=== PATIENT | male | born 1955 | race American Indian/Alaskan Native ===

== ENCOUNTER → 2020-09-26 13:46 | Outpatient (BNVA) | payer MEDICAID, SELFPAY | PROVIDERS: PCP Student in an Organized Health Care Education/Training Program; Visit Provider Nurse Practitioner Family | DX: Z76.89 Persons encountering health services in other specified circumstances (principal) ==

== ENCOUNTER 2020-09-30 09:33 | Outpatient (REF) | payer MEDICAID, SELFPAY ==
[2020-09-30 10:33] LABS: Hematocrit 46.5 % (42-52); Hemoglobin 15.8 g/dl (14.0-18.0); Mean Corpuscular Hemoglobin 30.8 pg (27.0-33.0); Mean Corpuscular Volume 90.6 fL (80-98); Platelet Count 194 X10*3/uL (160-400); Red Blood Count 5.13 X10*6/uL (4.60-5.80); Red Cell Distribution Width 12.9 % (11.0-16.0); White Blood Count 8.1 X10*3/uL (4.8-10.8)
[2020-09-30 12:24] LABS: Alanine Aminotransferase 27 U/L (0-40); Albumin Level 4.8 g/dL (3.5-5.0); Alkaline Phosphatase 86 U/L (39-117); Anion Gap 11 (12-20); Aspartate Amino Transferase 23 U/L (5-37); Bilirubin Total 0.4 mg/dL (0.0-1.0); Blood Urea Nitrogen 18 mg/dL (9-16); Calcium 9.3 mg/dL (8.4-10.2); Carbon Dioxide 27 mmol/L (22-29); Chloride 103 mmol/L (96-108); Estimated Glomerular Filt Rate > 60; Glucose Random 103 mg/dL (60-115); Potassium 4.3 mmol/l (3.3-5.1); Sodium 137 mmol/L (135-145); Total Protein 7.4 g/dL (6.5-8.0)
== END 2020-09-30 09:34 | disposition home or self-care (01) ==
LOC: HO.LAB 09:33
PROVIDERS: PCP Student in an Organized Health Care Education/Training Program; Visit Provider Nurse Practitioner Family
DX: Z12.11 Encounter for screening for malignant neoplasm of colon (principal)
CPT/HCPCS: 36415; 80053; 85027

== ENCOUNTER 2020-11-29 09:34 | Emergency (ER) | payer MEDICAID, SELFPAY ==
--- NOTE | ~2020-11-29 | CT_ITS ---
EXAMINATION: CT HEAD AND CT BRAIN WITHOUT CONTRAST. CLINICAL INFORMATION: Neck pain, left arm numbness. COMPARISON: None TECHNIQUE: 5 mm thin axial and reformatted 2 mm thin sagittal and coronal images of brain were obtained. 3 mm thin axial and reformatted 2 mm thin sagittal and coronal images of cervical spine were obtained. DLP 1390. FINDINGS: BRAIN: There is no acute intra-axial, extra-axial bleed, masses or midline shift. There is no acute infarction in evolution. The lateral ventricles are symmetrical in size and configuration but mildly prominent. There is mild prominence of cortical sulci. There is diffuse periventricular hypodensity in both cerebral hemispheres suggestive of chronic microangiopathy. Bone windows reveal no calvarial abnormality. There is mucoperiosteal thickening left sinus. Small polyps or retention cysts seen in left maxillary sinus. CERVICAL SPINE: There is mild straightening of cervical lordosis. The vertebral heights and alignment is normal. There is loss of C3-C4, C4-C5, C5-C6 and C6-C7 disc heights with posterior and ventral spondylosis most prominent at the C5-C6 disc level. The craniovertebral junction and the C1-C2 alignment is normal. There is hypertrophic bony spurring at the C1-C2 alignment. Also visualized is mild left facet joint arthropathy and hypertrophy cyst C2-C3, right C3-C4, left C4-C5 and C5-C6 disc levels. There is mild to moderate bilateral narrowing of neural foramina at most of the disc levels slightly worse at the C4-C5 and C5-C6 disc level. No visible acute fracture, dislocation or subluxation seen. Visualized bilateral parotid, submandibular and thyroid glands are symmetrical and normal. The airway is widely patent. The lung apices are clear. Small shotty lymph nodes are seen throughout the neck. CT/CT cervical spine wo con IMPRESSION: No acute intracranial process seen. Age-related mild cerebral volume loss with chronic small vessel microangiopathy in both cerebral hemispheres. No visible acute fracture or dislocation cervical spine. There are degenerative disc changes and facet joint arthropathy as described above.
[2020-11-29 09:47] VITALS: BP 144/72; PULSE 88; RESP 18; TEMP 36.3; O2SAT 99; BMI 26.6
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
== END 2020-11-29 11:42 | disposition home or self-care (01) ==
PROVIDERS: Emergency Provider Emergency Medicine; PCP Student in an Organized Health Care Education/Training Program
DX: M54.12 Radiculopathy, cervical region (principal); R20.2 Paresthesia of skin; I10 Essential (primary) hypertension; F17.210 Nicotine dependence, cigarettes, uncomplicated; Z79.82 Long term (current) use of aspirin; Z79.899 Other long term (current) drug therapy
CPT/HCPCS: 70450; 72125; 99283; 99284

== ENCOUNTER 2020-12-19 12:30 | Day surgery (SDC) | payer MEDICAID, SELFPAY ==
[2020-12-11 20:14] VITALS: BMI 25.8
--- NOTE | 2020-12-18 09:55 | HO.ANESPROP2 ---
HPI - Anesthesia Eval Consult details Narrative: 65yo M for Colonoscopy [facility] Past Medical History Medical History Anxiety HTN (hypertension) Family History Family History (Updated 09/26/20 @ 13:50 by Nolvia Christian CMA) Father Hx of colon cancer, stage IV Hx of diabetes insipidus Mother Family history of high blood pressure Surgical History Surgical History No significant past surgical history Social History Social History (Updated 09/26/20 @ 13:50 by Nolvia Christian CMA) Alcohol intake: current Alcohol intake frequency: does not drink Smoking Status: Current every day smoker Tobacco Type: Cigarette Cigarettes Per Day: 10 Second Hand Smoke Exposure: No Meds Allergies Allergy/AdvReac Type Severity Reaction Status Date / Time No Known Allergies Allergy Verified 09/26/20 13:48 Home Medications Medication Instructions Recorded Confirmed Last Taken Type aspirin 81 mg tablet,delayed 81 mg PO DAILY 09/26/20 12/11/20 12/11/20 09:00 History release hydrochlorothiazide 25 mg tablet 25 mg PO DAILY 09/26/20 12/11/20 Unknown History ibuprofen 600 mg tablet 600 mg PO DAILY tab 09/26/20 12/11/20 12/11/20 09:00 History lisinopril 10 mg tablet 10 mg PO DAILY 09/26/20 12/11/20 Unknown History polyethylene glycol 3350 17 17 g PO DAILY 09/26/20 12/11/20 Unknown History gram/dose oral powder sertraline 25 mg tablet 25 mg PO DAILY 09/26/20 12/11/20 Unknown History Exam Exam Date and Time: December 18, 2020 0955 Height,Weight and Vital Signs: Height 5 ft 9 in Weight 79.379 kg Pertinent Lab Results Pertinent Lab Results: Laboratory Tests 09/30/20 09/30/20 11:30 Unknown WBC 8.1 Hgb 15.8 Hct 46.5 Plt Count 194 Sodium 137 Potassium 4.3 Chloride 103 Carbon Dioxide 27 BUN 18 H Creatinine 0.81 Assessment and Plan Assessment Anesthesia Assessment: Chart Reviewed
[2020-12-19 12:38] VITALS: BP 183/89; PULSE 99; RESP 20; TEMP 36.9; O2SAT 97
[2020-12-19] MEDS: Lactated Ringers 1,000 ML 100 ML IVCONT (13:06)
--- NOTE | 2020-12-19 14:45 | MHC.SHP ---
Pre-Procedural Eval Section B Chief Complaint: screening Details of Present Illness: dad had colon cancer Relevant Family History (Specify if Yes): Yes Relevant Social History: Tobacco Use Present Medications: see Short Stay Collaborative assessment Medical History: Significant History (Anxiety HTN (hypertension)) History of Previous Operations: No relevant previous surgery Allergies: Allergies Allergy/AdvReac Type Severity Reaction Status Date / Time No Known Allergies Allergy Verified 09/26/20 13:48 Review of Systems Sugical H&P ROS: Negative: Constitution, Cardiovascular, Respiratory, Neurological, Psychiatric, Hem-Onc, Allergic/Immunologic, Gastrointestinal, Genitourinary, Musculoskeletal, Integumentary, Endocrine and Eyes/Ears/Nose/Throat Exam Surgical H&P Exam: Normal: HEENT, Normal: Heart, Normal: Lungs, Normal: Extremities, Normal: Abdomen, Normal: Skin and Normal: Neurological Plan Diagnosis/Plan: Unchanged I have reviewed the history and physical and performed a pertinent physical examination on my patient. No changes have occurred unless specified.
--- NOTE | 2020-12-19 14:48 | PM.OP ---
Brief Operative Note Date of Service: 12/19/20 Pre-op diagnosis: fh of CRC, colon screening Post-op diagnosis: same Procedure: see op note Surgeon: Reza Stephenson MD Anesthesia: MAC Estimated blood loss (mL): 0 Condition: stable Disposition: PACU
--- NOTE | 2020-12-19 15:21 | P.OP_ITS ---
Operative Note Operative Note Date of Service: 12/19/20 Narrative: Operative Information Procedure Description: Colonoscopy COLONOSCOPY Instrument: Olympus variable stiffness pediatric scope 190L Colonoscopy Monitoring: Vital signs and clinical assessment, continuous EKG monitoring, Pulse oximetry, Carbon Dioxide monitoring and blood pressure monitoring were done throughout the procedure. Colon withdrawal time was 23 minutes. Procedure: The patient was placed in the left lateral decubitis position and pre-procedure medications were administered. After a digital rectal examination of the ano-rectum, the video colonoscope was inserted into the rectum and advanced through the colon to the cecum/TI. The colonoscope was slowly withdrawn in a retrograde panoramic fashion and the colon mucosa was carefully examined including a retroflexed view of the rectum. Findings and interventions are described below. Procedure Difficulty: easy Findings: few areas in colon with small erosions Terminal Ileum-mild erythema Cecum: x 2 sessile polyps 7-9 mm removed with cold snare Ascending Colon: normal Transverse Colon -normal Descending Colon: x 2 sessile polyps removed with cold snare, measuring about 10-12 mm Sigmoid Colon: moderate diverticulosis noted, x 2 sessile polyps removed 8-10 mm with cold snare Rectum: Retroflexion with moderate sized internal hemorrhoids, grade I, 5 sessile polyps removed with cold snare 5-9 mm in size Anorectum - normal Colon preparation: [place] Bowel Preparation Scale Right colon; 1 Transverse colon: 2 Left colon; 1 (0 = Unprepared colon segment with mucosa not seen due to solid stool that cannot be cleared. 1 = Portion of mucosa of the colon segment seen, but other areas of the colon segment not well seen due to staining, residual stool and/or opaque liquid. 2 = Minor amount of residual staining, small fragments of stool and/or opaque liquid, but mucosa of colon segment seen well. 3 = Entire mucosa of colon segment seen well with no residual staining, small fragments of stool or opaque liquid) Impression and Post Procedure Diagnosis: polyps internal hemorrhoids diverticular disease Plan: High fiber diet leaflet Avoid straining at stool, epsom salts and sitz bath, anusol supps or cream as needed Repeat Colonoscopy in 1-2 years or earlier if clinically indicated check nsaid hx Above findings were reviewed with the patient and relevant handouts were provided if indicated.
[2020-12-19 15:25] VITALS: BP 114/66; PULSE 73; RESP 14; TEMP 36.9; O2SAT 95
[2020-12-19 15:40] VITALS: BP 119/67; PULSE 63; RESP 16; O2SAT 95
[2020-12-19 16:00] VITALS: BP 124/70; PULSE 64; RESP 17; O2SAT 96
== END 2020-12-19 16:15 | disposition home or self-care (01) ==
PROVIDERS: PCP Student in an Organized Health Care Education/Training Program; Visit Provider Internal Medicine Gastroenterology
PROC: 0DJD8ZZ Inspection of Lower Intestinal Tract, Via Natural or Artificial Opening Endoscopic (ICD-10-PCS; CPT 45378; principal; 2020-12-19 13:30)
DX: Z12.11 Encounter for screening for malignant neoplasm of colon (principal); Z80.0 Family history of malignant neoplasm of digestive organs; D12.0 Benign neoplasm of cecum; D12.5 Benign neoplasm of sigmoid colon; K63.5 Polyp of colon; K62.1 Rectal polyp; K57.30 Diverticulosis of large intestine without perforation or abscess without bleeding; K64.0 First degree hemorrhoids; I10 Essential (primary) hypertension; F17.210 Nicotine dependence, cigarettes, uncomplicated; Z79.82 Long term (current) use of aspirin; Z79.899 Other long term (current) drug therapy; Z79.1 Long term (current) use of non-steroidal anti-inflammatories (NSAID)
CPT/HCPCS: 45385; 88305

== ENCOUNTER → 2021-01-06 14:06 | Outpatient (BNVA) | payer MEDICAID, SELFPAY | PROVIDERS: PCP Student in an Organized Health Care Education/Training Program; Visit Provider Nurse Practitioner Family ==

== ENCOUNTER 2021-03-26 08:34 | Outpatient (REF) | payer MEDICAID, SELFPAY ==
--- NOTE | ~2021-03-26 | XR_ITS ---
EXAMINATION: XR SHOULDER, RIGHT CLINICAL INFORMATION: Right shoulder pain COMPARISON: None TECHNIQUE: AP external rotation, Grashey, scapular Y, and axillary views of the right shoulder. FINDINGS: Moderate glenohumeral and acromioclavicular osteoarthritis. Subacromial spurring. Narrowing of the subacromial space may indicate a rotator cuff tear. This could be better evaluated with an MRI. Normal alignment with no fracture. No bone lesion or suspicious soft tissue calcification. XR/XR shoulder RT min 2V IMPRESSION: Moderate acromioclavicular and glenohumeral osteoarthritis. Subacromial space narrowing may indicate a rotator cuff tear.
== END 2021-03-26 08:35 | disposition home or self-care (01) ==
LOC: HO.XRAY 08:34
PROVIDERS: PCP Student in an Organized Health Care Education/Training Program; Referring Provider Student in an Organized Health Care Education/Training Program; Visit Provider General Practice
DX: M25.511 Pain in right shoulder (principal)
CPT/HCPCS: 73030

== ENCOUNTER → 2021-04-10 08:48 | Outpatient (BNVA) | payer MEDICAID, SELFPAY | PROVIDERS: PCP Student in an Organized Health Care Education/Training Program; Visit Provider Physician Assistant | DX: M12.811 Other specific arthropathies, not elsewhere classified, right shoulder (principal) | CPT/HCPCS: 20610; 99202; J1040 ==

== ENCOUNTER → 2021-05-13 08:15 | Outpatient (BNVA) | payer MEDICAID, SELFPAY | PROVIDERS: PCP Student in an Organized Health Care Education/Training Program; Visit Provider Nurse Practitioner Family | DX: K59.01 Slow transit constipation (principal); K58.1 Irritable bowel syndrome with constipation | CPT/HCPCS: 99212 ==

== ENCOUNTER → 2021-08-13 08:44 | Outpatient (BNVA) | payer MEDICAID, SELFPAY | PROVIDERS: PCP Student in an Organized Health Care Education/Training Program; Visit Provider Nurse Practitioner Family ==

== ENCOUNTER → 2021-09-30 08:55 | Outpatient (BNVA) | payer MEDICAID, SELFPAY | PROVIDERS: PCP Student in an Organized Health Care Education/Training Program; Visit Provider Urology | DX: N32.0 Bladder-neck obstruction (principal); R39.15 Urgency of urination | CPT/HCPCS: 99202 ==

== ENCOUNTER → 2021-10-08 09:24 | Outpatient (BNVA) | payer MEDICAID, SELFPAY | PROVIDERS: PCP Student in an Organized Health Care Education/Training Program; Visit Provider Physician Assistant | DX: M12.811 Other specific arthropathies, not elsewhere classified, right shoulder (principal) | CPT/HCPCS: 20610; 99212; J1040 ==

== ENCOUNTER 2021-12-03 14:15 | Outpatient (REF) | payer MEDICAID, SELFPAY ==
--- NOTE | ~2021-12-03 | US_ITS ---
EXAMINATION: US PELVIS LIMITED (BLADDER) CLINICAL INFORMATION: Poor urinary stream. COMPARISON: None TECHNIQUE: Real-time imaging of the bladder. FINDINGS: BLADDER: Well distended and normal. Bilateral ureteral jets are demonstrated. Prevoid bladder volume is 1073 mL. Postvoid bladder volume is 961 mL. There is a partial septation/fold in the bladder wall. ADDITIONAL FINDINGS: Significantly enlarged prostate with a volume of 139 mL. US/US bladder IMPRESSION: Significant urinary retention. Prevoid the bladder is significantly dilated with over 1 L of fluid. Minimal change post void. There is markedly enlarged prostate suggesting outlet obstruction.
== END 2021-12-03 14:16 | disposition home or self-care (01) ==
LOC: HO.US 14:15
PROVIDERS: Visit Provider Urology
DX: R39.12 Poor urinary stream (principal); N32.0 Bladder-neck obstruction
CPT/HCPCS: 76857

== ENCOUNTER → 2021-12-05 12:38 | Outpatient (BNVA) | payer MEDICAID, SELFPAY | PROVIDERS: PCP Student in an Organized Health Care Education/Training Program; Visit Provider Urology ==

== ENCOUNTER → 2022-01-20 08:29 | Outpatient (BNVA) | payer MEDICAID, SELFPAY | PROVIDERS: PCP Student in an Organized Health Care Education/Training Program; Visit Provider Urology | DX: Z13.89 Encounter for screening for other disorder (principal) ==

== ENCOUNTER → 2022-02-24 09:11 | Outpatient (BNVA) | payer MEDICAID, SELFPAY | PROVIDERS: PCP Student in an Organized Health Care Education/Training Program; Visit Provider Nurse Practitioner Family | DX: K59.04 Chronic idiopathic constipation (principal); R14.0 Abdominal distension (gaseous) | CPT/HCPCS: 99212 ==

== ENCOUNTER 2022-08-24 14:20 | Outpatient (REF) | payer MEDICARE, MEDICAID, SELFPAY ==
--- NOTE | ~2022-08-24 | US_ITS ---
EXAMINATION: NONINVASIVE ASSESSMENT OF THE ARTERIES OF BOTH LOWER EXTREMITIES WITH PVR EXAM Jg Mason MD CLINICAL INFORMATION: Peripheral vascular disease, claudication TECHNIQUE: Ankle pulse volume recordings, ankle pressure measurements and ankle brachial indices were obtained of the lower extremity arterial system bilaterally. The study was performed only at rest. COMPARISON: None FINDINGS: a) AT REST: RIGHT LE. The right ankle-brachial index is: 0.59 * >0.97-1.25 = normal - no significant arterial disease * 0.75-0.96 = mild peripheral arterial disease * 0.5-0.74 = moderate peripheral arterial disease * <0.50 = severe peripheral arterial disease 2. Right ankle pressure: 88 3. Right ankle PVR waveform: Markedly dampened LEFT LE. The left ankle-brachial index is: 1.11 * >0.97-1.25 = normal - no significant arterial disease * 0.75-0.96 = mild peripheral arterial disease * 0.5-0.74 = moderate peripheral arterial disease * <0.50 = severe peripheral arterial disease 2. Left ankle pressure: 164 3. Left ankle PVR waveform: Normal US/US FLORES complete IMPRESSION: Moderately decreased right lower extremity ankle brachial index and pulse volume waveform consistent with underlying arterial occlusive disease. Unremarkable examination of the left lower extremity
== END 2022-08-24 14:21 | disposition home or self-care (01) ==
LOC: HO.US 14:20
PROVIDERS: PCP Student in an Organized Health Care Education/Training Program; Visit Provider Family Medicine
DX: I73.9 Peripheral vascular disease, unspecified (principal)
CPT/HCPCS: 93923

== ENCOUNTER → 2022-09-07 09:08 | Outpatient (BNVA) | payer MEDICARE, MEDICAID, SELFPAY | PROVIDERS: PCP Student in an Organized Health Care Education/Training Program; Visit Provider Surgery Vascular Surgery | DX: I73.9 Peripheral vascular disease, unspecified (principal) | CPT/HCPCS: 99202 ==

== ENCOUNTER 2022-10-28 07:21 | Day surgery (SDC) | payer OTHER, SELFPAY ==
[2022-10-28] VITALS (7 sets, daily range): BP systolic 138–158; BP diastolic 68–90; PULSE 56–68; RESP 16–18; TEMP 36.3–36.4; O2SAT 95–100; BMI 27.1
[2022-10-28 07:48] LABS: MANUAL DIFF FLAG NO
[2022-10-28 07:54] LABS: Basophils Absolute Auto 0.1 X10*3/uL (0.0-0.2); Basophils Percent Auto 1.6 % (0-2); Eosinophils Absolute Auto 0.4 X10*3/uL (0.0-0.4); Eosinophils Percent Auto 5.2 % (0-4); Hematocrit 45.9 % (42.0-52.0); Hemoglobin 15.1 g/dl (14.0-18.0); Imm Gran Abs Auto 0.03 X10*3/uL (0.00-0.03); Imm Gran Pct Auto 0.4 % (0.0-0.4); Lymphocytes Absolute Auto 1.8 X10*3/uL (1.2-4.9); Lymphocytes Percent Auto 26.5 % (20-40); Mean Corpuscular HGB Conc 32.9 g/dl (31.0-36.0); Mean Corpuscular Hemoglobin 30.1 pg (27.0-33.0); Mean Corpuscular Volume 91.4 fL (80.0-98.0); Mean Platelet Volume 11.8 fL (9.4-12.4); Monocytes Absolute Auto 0.5 X10*3/uL (0.1-1.2); Monocytes Percent Auto 7.6 % (2-11); Neutrophils Percent Auto 58.7 % (45-73); Platelet Count 165 X10*3/uL (160-400); Red Blood Count 5.02 X10*6/uL (4.60-5.80); Red Cell Distribution Width 12.9 % (11.0-16.0); White Blood Count 6.9 X10*3/uL (4.8-10.8)
--- NOTE | 2022-10-28 08:15 | PC.NURSE ---
patient shave prep bilateral groins completed. red, wet rash noted to bilateral groins. Dr. Mcclain aware and at bedside. Okay to proceed with procedure per Dr. Mcclain. Priscila ABDUL RN and CHANTELL Bach RN aware.
[2022-10-28 08:16] LABS: Blood Urea Nitrogen 19 mg/dL (9-16); Creatinine Clr Calc Pharmacy 78.3; Estimated Glomerular Filt Rate > 60
--- NOTE | 2022-10-28 10:43 | W.PM.OPN ---
Operative Note Operative Note Date of Service: 10/28/22 Narrative: Angiogram report from [facility] Preoperative diagnosis: Atherosclerosis of right lower extremity with activity limiting claudication Postoperative diagnosis: Same Procedure: 1. Ultrasound-guided left common femoral access 2. Aortogram with right lower extremity runoff 3. Atherectomy and plasty of right SFA Surgeon:Joseph Mcclain M.D., FACS, RPVI Plate Corrector:None Anesthesia: Local with moderate conscious sedation. Total intraservice moderate sedation time was 50 minutes. I monitored the patient's level of consciousness and physiologic status continuously throughout the procedure. Specimens:none Drains:none Estimated blood loss: Less than 10 ml Implant: Medtronic Impact DCB 6 x 60 Indications: Very pleasant 67-year-old gentleman with a prior history of activity limiting claudication and SFA stenosis on ultrasound now presents for endovascular intervention The patient has signed the informed consent after reviewing risks, complications, benefits, and alternatives previously discussed with the patient. The patient was given the opportunity to ask any additional questions or voice any concerns. All questions were answered to the patient's satisfaction. Procedure in detail: Patient was brought to the angiography suite prior to which a time-out was called for patient identification and site verification. Bilateral groins were prepped and draped in the standard surgical fashion. Under ultrasound guidance left common femoral was punctured with micro puncture needle and wire. Subsequently a precision 4 [place] sheath was then placed. Bentson wire was advanced to the level of the aorta. 4 [place] Flush catheter was brought up and parked at the level of the renal arteries. Aortogram was then undertaken. Catheter was brought down to the level of the iliac bifurcation. Iliacs were subsequently imaged. Catheter was then brought in up and over to the right side SFA. Runoff study was then undertaken. We did notice high-grade stenosis at Sriram's canal. At this time 5000 units of systemic heparin was administered after 5 minutes of circulation time up and over 6 [place] sheath was placed we used an 035 glidewire Advantage to traverse this. Once across we used a now be cross catheter to confirmed true lumen this was instilled with contrast. We then placed a 6 [place] spider wire. Over this we performed in the SFA on the left side Hawk 1 atherectomy. Multiple unidirectional passes were undertaken. Once this was accomplished we used a 6 x 60 DCB. This was brought into position in under 3 minutes and insufflated for a total of 3 minutes in duration. Once this was accomplished completion angiogram demonstrated excellent result catheter wire sheath was brought back to the ipsilateral side. StarClose closure device was deployed. Patient tolerated the procedure well returned to recovery with stable vitals. Interpretation of films: 1. Ultrasound demonstrates appropriate femoral puncture. Image of which was saved. 2. Aortogram demonstrates appropriate caliber aorta. Minimal disease but high-grade degree of tortuosity. Appropriate take-off of the renals. 3. Iliac images demonstrate very tortuous iliacs with who mild stenosis 4. Right Leg Common femoral artery: Minimal disease Profundus Femoris: No significant disease Superficial femoral artery: Near total occlusion at Sriram's canal with immediate reconstitution Popliteal artery (p1,p2,p3): Minimal disease Anterior tibial artery: Patent and dominant vessel Peroneal artery: Occluded Posterior tibial artery: Occluded Dorsalis pedis/plantar arch: Incomplete Conclusion: 1. Successful atherectomy and plasty of right SFA 2. Anticoagulation status: Will require aspirin and Plavix for a total of 6 months in duration This note is constructed using voice recognition software. While every effort has been made to ensure accuracy, substation operator helper generation errors may have been included. Thank you for allowing me to participate in the care of your patient. Yours sincerely, Joseph Mcclain MD, FACS, R.P.V.I.
[2022-10-28] MEDS: Clopidogrel Bisulfate 300 MG TABLET PO (11:09)
== END 2022-10-28 12:51 | disposition home or self-care (01) ==
PROVIDERS: PCP Student in an Organized Health Care Education/Training Program; Visit Provider Surgery Vascular Surgery
DX: I70.211 Atherosclerosis of native arteries of extremities with intermittent claudication, right leg (principal); I10 Essential (primary) hypertension; F41.1 Generalized anxiety disorder; Z86.16 Personal history of COVID-19; F17.210 Nicotine dependence, cigarettes, uncomplicated; Z79.82 Long term (current) use of aspirin; Z79.1 Long term (current) use of non-steroidal anti-inflammatories (NSAID); Z79.899 Other long term (current) drug therapy
CPT/HCPCS: 36415; 37225; 76937; 82565; 84520; 85025; 99152; 99153; C1714; C1760; C1769; C1884; C1887; C2623; J1643; J2250; J3010; Q9967

== ENCOUNTER → 2022-11-17 08:57 | Outpatient (BNVA) | payer OTHER, SELFPAY | PROVIDERS: PCP Student in an Organized Health Care Education/Training Program; Visit Provider Surgery Vascular Surgery | DX: I73.9 Peripheral vascular disease, unspecified (principal) | CPT/HCPCS: 99212 ==

== ENCOUNTER 2022-11-28 11:47 | Outpatient (REF) | payer OTHER, SELFPAY ==
--- NOTE | ~2022-11-28 | XR_ITS ---
EXAMINATION: XR SHOULDER, LEFT XR CERVICAL SPINE CLINICAL INFORMATION: Left upper extremity radiculopathy. COMPARISON: None. TECHNIQUE: 4 views left shoulder. Cervical spine 6 views. FINDINGS: Left Shoulder: There is loss of AC joint space with moderate periarticular hypertrophic changes. There is inferior acromial spurring. The glenohumeral joint space is normal. There are small enthesophytes along the greater tuberosity. No loose body seen. No acute fracture or dislocation. Cervical Spine: There is normal cervical lordosis. There is loss of C4-C5, C5-C6, C6-C7 and C7-T1 disc heights with moderate ventral spondylosis C5-C6, C6-C7 and C7-T1 disc levels. The craniovertebral junction and the C1-C2 alignment is normal. No visible acute fracture, dislocation or lytic process seen. The prevertebral and paravertebral soft tissues are normal. The soft tissues are normal. XR/XR cervical spine 5V IMPRESSION: 1. Degenerative disc changes C5-C6, C6-C7 and C7-T1 disc levels with moderate ventral spondylosis. No visible acute fracture or dislocation seen. 2. Degenerative disc changes left AC joint with inferior acromial spurring. There is likely nerve root impingement. Consider MRI left shoulder and MRI cervical spine if patient has significant pain.
--- NOTE | ~2022-11-28 | XR_ITS ---
EXAMINATION: XR SHOULDER, LEFT XR CERVICAL SPINE CLINICAL INFORMATION: Left upper extremity radiculopathy. COMPARISON: None. TECHNIQUE: 4 views left shoulder. Cervical spine 6 views. FINDINGS: Left Shoulder: There is loss of AC joint space with moderate periarticular hypertrophic changes. There is inferior acromial spurring. The glenohumeral joint space is normal. There are small enthesophytes along the greater tuberosity. No loose body seen. No acute fracture or dislocation. Cervical Spine: There is normal cervical lordosis. There is loss of C4-C5, C5-C6, C6-C7 and C7-T1 disc heights with moderate ventral spondylosis C5-C6, C6-C7 and C7-T1 disc levels. The craniovertebral junction and the C1-C2 alignment is normal. No visible acute fracture, dislocation or lytic process seen. The prevertebral and paravertebral soft tissues are normal. The soft tissues are normal. XR/XR shoulder LT min 2V IMPRESSION: 1. Degenerative disc changes C5-C6, C6-C7 and C7-T1 disc levels with moderate ventral spondylosis. No visible acute fracture or dislocation seen. 2. Degenerative disc changes left AC joint with inferior acromial spurring. There is likely nerve root impingement. Consider MRI left shoulder and MRI cervical spine if patient has significant pain.
== END 2022-11-28 11:48 | disposition home or self-care (01) ==
LOC: HO.XRAY 11:47
PROVIDERS: PCP Student in an Organized Health Care Education/Training Program; Visit Provider Family Medicine
DX: M25.512 Pain in left shoulder (principal); M54.10 Radiculopathy, site unspecified
CPT/HCPCS: 72050; 73030

== ENCOUNTER 2023-02-08 09:11 | Outpatient (REF) | payer OTHER, SELFPAY ==
--- NOTE | ~2023-02-08 | US_ITS ---
EXAMINATION: ANKLE-BRACHIAL INDICES SINGLE LEVEL PULSE VOLUME RECORDING ARTERIAL DUPLEX BILATERAL LEGS CLINICAL INFORMATION: Peripheral vascular disease. COMPARISON: None TECHNIQUE: Ankle-brachial indices and PVR at the ankle were obtained. Duplex Doppler of the bilateral lower extremity arterial systems was performed. FINDINGS: RIGHT: Ankle-brachial index: 1.04 PVR: Normal. Common femoral: PSV 192 cm/s. Triphasic waveform. Deep femoral: PSV 32 cm/s. Biphasic waveform. Proximal superficial femoral: PSV 114 cm/s. Triphasic waveform. Mid superficial femoral: PSV 119 cm/s. Triphasic waveform. Distal superficial femoral: PSV 97 cm/s. Biphasic waveform. Popliteal: PSV 69 cm/s. Triphasic waveform. Posterior tibial: PSV 21 cm/s. Monophasic waveform. Peroneal: PSV 62 cm/s. Biphasic waveform. LEFT: Ankle-brachial index: 1.04 PVR: Mildly abnormal. Common femoral: PSV 147 cm/s. Biphasic waveform. Deep femoral: PSV 64 cm/s. Biphasic waveform. Proximal superficial femoral: PSV 101 cm/s. Triphasic waveform. Mid superficial femoral: PSV 104 cm/s. Biphasic waveform. Distal superficial femoral: PSV 118 cm/s. Biphasic waveform. Popliteal: PSV 79 cm/s. Biphasic waveform. Posterior tibial: PSV 59 cm/s. Biphasic waveform. Peroneal: PSV 39 cm/s. Biphasic waveform. US/US arterial duplex LE BI IMPRESSION: Right: Normal ankle-brachial index and pulse volume recording. Diffuse atherosclerotic disease. Likely hemodynamically significant posterior tibial disease that is compensated as the FLORES is preserved. Left: Normal ankle-brachial index and mildly abnormal pulse volume recording. Diffuse atherosclerotic disease. No hemodynamically significant disease demonstrated.
--- NOTE | ~2023-02-08 | US_ITS ---
EXAMINATION: ANKLE-BRACHIAL INDICES SINGLE LEVEL PULSE VOLUME RECORDING ARTERIAL DUPLEX BILATERAL LEGS CLINICAL INFORMATION: Peripheral vascular disease. COMPARISON: None TECHNIQUE: Ankle-brachial indices and PVR at the ankle were obtained. Duplex Doppler of the bilateral lower extremity arterial systems was performed. FINDINGS: RIGHT: Ankle-brachial index: 1.04 PVR: Normal. Common femoral: PSV 192 cm/s. Triphasic waveform. Deep femoral: PSV 32 cm/s. Biphasic waveform. Proximal superficial femoral: PSV 114 cm/s. Triphasic waveform. Mid superficial femoral: PSV 119 cm/s. Triphasic waveform. Distal superficial femoral: PSV 97 cm/s. Biphasic waveform. Popliteal: PSV 69 cm/s. Triphasic waveform. Posterior tibial: PSV 21 cm/s. Monophasic waveform. Peroneal: PSV 62 cm/s. Biphasic waveform. LEFT: Ankle-brachial index: 1.04 PVR: Mildly abnormal. Common femoral: PSV 147 cm/s. Biphasic waveform. Deep femoral: PSV 64 cm/s. Biphasic waveform. Proximal superficial femoral: PSV 101 cm/s. Triphasic waveform. Mid superficial femoral: PSV 104 cm/s. Biphasic waveform. Distal superficial femoral: PSV 118 cm/s. Biphasic waveform. Popliteal: PSV 79 cm/s. Biphasic waveform. Posterior tibial: PSV 59 cm/s. Biphasic waveform. Peroneal: PSV 39 cm/s. Biphasic waveform. US/US FLORES complete IMPRESSION: Right: Normal ankle-brachial index and pulse volume recording. Diffuse atherosclerotic disease. Likely hemodynamically significant posterior tibial disease that is compensated as the FLORES is preserved. Left: Normal ankle-brachial index and mildly abnormal pulse volume recording. Diffuse atherosclerotic disease. No hemodynamically significant disease demonstrated.
== END 2023-02-08 09:12 | disposition home or self-care (01) ==
LOC: HO.US 09:11
PROVIDERS: PCP Student in an Organized Health Care Education/Training Program; Visit Provider Surgery Vascular Surgery
DX: I70.213 Atherosclerosis of native arteries of extremities with intermittent claudication, bilateral legs (principal)
CPT/HCPCS: 93923; 93925

== ENCOUNTER → 2023-02-16 08:58 | Outpatient (BNVA) | payer OTHER, SELFPAY | PROVIDERS: PCP Student in an Organized Health Care Education/Training Program; Visit Provider Surgery Vascular Surgery | DX: I73.9 Peripheral vascular disease, unspecified (principal) | CPT/HCPCS: 99212 ==

== ENCOUNTER → 2023-03-12 10:07 | Outpatient (BNVA) | payer OTHER, SELFPAY | PROVIDERS: PCP Student in an Organized Health Care Education/Training Program; Visit Provider Physician Assistant | DX: M25.512 Pain in left shoulder (principal); M75.82 Other shoulder lesions, left shoulder | CPT/HCPCS: 20610; 99212; J1040 ==

== ENCOUNTER 2023-05-13 19:25 | Outpatient (REF) | payer OTHER, SELFPAY ==
[2023-05-13 21:22] LABS: Influenza A PCR NEGATIVE (Negative); Influenza B PCR NEGATIVE (Negative); Resp Syncy Virus RNA Qual PCR NEGATIVE (Negative); SARS COV2 PCR INHOUSE NEGATIVE (Negative)
== END 2023-05-13 19:26 | disposition home or self-care (01) ==
LOC: HO.HHCLNP 19:25
PROVIDERS: Visit Provider Family Medicine
DX: R05.9 Cough, unspecified (principal); Z20.822 Contact with and (suspected) exposure to COVID-19
CPT/HCPCS: 0241U

== ENCOUNTER 2023-06-02 08:53 | Outpatient (AMB) | payer OTHER, SELFPAY ==
--- NOTE | 2023-06-02 08:56 | MHC.OFFVIS ---
Intake Vital Signs 06/02/23 08:58 Height 5 ft 9 in Weight 174 lb BMI 25.7 BP 128/72 Blood Pressure Location Lt brachial Position Sitting Pulse 78 Pulse Source Monitor Intake Visit Reasons: NPV/O'Dair/hypertension/eval for CAD Intake Note: New patient visit with EKG for evaluation of HTN and CAD. Clinical Pharmacy Manager Required: No Accompanied by: Self / Same As Patient Allergies No Known Allergies Allergy (Verified 06/02/23 09:00) Medication List - Last Reconciled 06/02/23 by Matthew Worthington MD amlodipine 5 mg PO QAM aspirin 81 mg PO DAILY calcipotriene 0.005% 1 appl topical BID cholecalciferol (vitamin D3) (Vitamin D3) 25 mcg PO DAILY clonidine HCl 0.1 mg PO BEDTIME clopidogrel (Plavix) 75 mg PO DAILY finasteride 5 mg PO DAILY 90 days fluconazole 200 mg PO QWEEK hydrochlorothiazide 25 mg PO DAILY hydroxyzine HCl 25 mg PO BID lidocaine 5% (Lidoderm) 1 patch topical DAILY lisinopril 40 mg PO DAILY meclizine 12.5 mg PO BID miconazole nitrate 2% (Antifungal (miconazole)) topical mupirocin 2% 1 appl topical TID nystatin topical TID olanzapine 10 mg PO DAILY polyethylene glycol 3350 (Miralax) 17 grams PO DAILY sennosides (Natural Senna Laxative) 8.6 mg PO BEDTIME sertraline 25 mg PO DAILY terazosin 10 mg PO BEDTIME 90 days HPI HPI Comments History of Present Illness Details [age] gentleman is here for 1st office visit. He has background history of hypertension, tobacco use and peripheral vascular disease status post right SFA atherectomy and PCI by Dr. Mcclain in October 2022. He is on aspirin and Plavix right now. He is not on statin currently. He is smoking 10 cigarettes per day. He is complaining of left-sided chest pain on a very small area where he can put 1 finger, jolt like sensation which lasts for a sec or 2 randomly. This does not happen with activity. He does get dyspnea with activity and has been a chronic smoker. Denying any exertional chest discomfort otherwise. Blood pressure control is reasonable currently. Physically not active. [facility] Medical History (Updated 06/02/23 @ 09:27 by Matthew Worthington MD) Anxiety COVID-19 HTN (hypertension) Tubular adenoma Surgical History (Updated 06/02/23 @ 09:03 by EMIILANO Dias) Hx of colonoscopy S/P angiogram of extremity Family History Father Hx of colon cancer, stage IV Hx of diabetes insipidus Mother Family history of high blood pressure Social History (Updated 06/02/23 @ 09:04 by EMILIANO Dias) Household Members: None Are you a primary career center advisor to a significant other at home: No Do you presently have visiting nurse or other home services: No Alcohol intake: current Alcohol intake frequency: holidays/special occasions only Patient Tobacco Use Status: Current everyday Tobacco user Tobacco use type: Cigarette Cigarette Packs Per Day: 0.5 Cigarettes Per Day: 10 Years Smoked: 50 +/- Second Hand Smoke Exposure: No Current occupational status: unemployed Current occupation: left handed Review of Systems Const Denies chills, Denies daytime sleepiness, Denies fatigue, Denies fever(s), Denies frequent falls, Denies night sweats, Denies snoring, Denies weakness, Denies weight gain and Denies weight loss Eyes Denies loss of vision ENT Denies dizziness and Denies hearing loss Card Denies chest pain, Denies chest pain with activity, Denies syncope, Denies rapid heart rate, Denies edema, Denies claudication, Denies leg edema, Denies lightheadedness, Denies palpitations, Denies dyspnea, Denies dyspnea on exertion and Denies orthopnea Resp Denies cough, Denies excessive phlegm production, Denies dyspnea, Denies dyspnea on exertion, Denies snoring and Denies wheezing GI Denies abdominal pain, Denies hematochezia, Denies change in bowel habits, Denies change in stool character, Denies heartburn, Denies nausea and Denies vomiting Denies hematuria, Denies dysuria and Denies urinary frequency Musc Denies arthralgias, Denies muscle weakness, Denies numbness and Denies tingling Skin/Breast Denies nail changes and Denies rash Neuro Denies Abnormal speech present, Denies dizziness, Denies syncope, Denies frequent falls, Denies loss of vision, Denies memory loss, Denies numbness, Denies tingling and Denies weakness Psych Denies depression and Denies memory loss Endo Denies fatigue and Denies palpitations Aller/Immun Denies wheezing Physical Exam Vital Signs: Last Vital Signs Pulse 78 06/02/23 08:58 BP 128/72 06/02/23 08:58 BMI result Body Mass Index 25.7 GENERAL APPEARANCE: in no acute distress, pleasant. NECK: no carotid bruit, no jugular venous distention. SKIN: no suspicious lesions, warm and dry. HEART: no murmurs, regular rate and rhythm. LUNGS: clear to auscultation bilaterally. ABDOMEN: soft, nontender. EXTREMITIES: no edema. PERIPHERAL PULSES: equal. NEUROLOGIC: No gross deficits, AAO X 3 Neuro Speech: No Abnormal speech present Office Procedures EKG Details: Sinus rhythm with frequent premature ventricular complexes, normal axis, nonspecific T-wave changes, QTC 471 milliseconds. [id number], Complete Assessment & Plan Assessment & Plan (1) HUI (dyspnea on exertion): Code(s): R06.09 - Other forms of dyspnea (2) Chest pain: Code(s): R07.9 - Chest pain, unspecified (3) PAD (peripheral artery disease): Comment: 10/28/2022 atherectomy and plasty of right SFA Code(s): I73.9 - Peripheral vascular disease, unspecified Plan [age] gentleman who is here for 1st office visit. He has noncardiac chest pain. Chest pain should be treated conservatively. He does have dyspnea on exertion which can be due to lung disease versus coronary disease. He has risk factors for coronary disease including hypertension, tobacco use and peripheral arterial disease. Adding atorvastatin 40 mg once a day. He will continue aspirin and Plavix for the leg intervention previously. Will arrange echocardiogram to assess LV function and do a stress Mibi. He will follow-up with us in few months. He will also get fasting lipid panel. Thank you for allowing me to participate in the care of your patient. Please feel free to contact me if you have any questions. Orders: Orders NM cardiolite stress test Today R06.09 - Other forms of dyspnea CA stress test Today R06.09 - Other forms of dyspnea CA echo transthoracic complete Today R06.09 - Other forms of dyspnea Lipid Panel Today I73.9 - Peripheral vascular disease, unspecified Medications: New atorvastatin 40 mg PO BEDTIME 60 tabs 3RF I73.9 - Peripheral vascular disease, unspecified Coding Level of Care Code New Pt Level 4 (00879) Diagnoses HUI (dyspnea on exertion) R06.09 Chest pain R07.9 PAD (peripheral artery disease) I73.9 CPT Codes EKG - CPT: [id number], Complete ([id number])
[2023-06-02 08:58] VITALS: BP 128/72; PULSE 78; BMI 25.7
== END 2023-06-02 09:28 | disposition home or self-care (01) ==
LOC: HO.HCSM 08:53
PROVIDERS: PCP Student in an Organized Health Care Education/Training Program; Referring Provider Student in an Organized Health Care Education/Training Program; Visit Provider Internal Medicine Cardiovascular Disease
DX: R06.09 Other forms of dyspnea (principal); R07.9 Chest pain, unspecified; I73.9 Peripheral vascular disease, unspecified
CPT/HCPCS: 93010; 99204

== ENCOUNTER → 2023-06-02 08:53 | Outpatient (BNVA) | payer OTHER, SELFPAY | PROVIDERS: PCP Student in an Organized Health Care Education/Training Program; Referring Provider Student in an Organized Health Care Education/Training Program; Visit Provider Internal Medicine Cardiovascular Disease | DX: I73.9 Peripheral vascular disease, unspecified (principal); R07.9 Chest pain, unspecified; R06.09 Other forms of dyspnea | CPT/HCPCS: 93005; 99202 ==

== ENCOUNTER → 2023-07-13 11:20 | Outpatient (REF) | payer OTHER, SELFPAY ==
--- NOTE | 2023-07-13 11:23 | CA_ITS ---
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 The visually estimated ejection fraction is between 45-50%. - LV peak GLS -12.2%. - No obvious valvular pathology seen on this study. Findings Left Ventricle Normal left ventricular cavity size. The left ventricular systolic function is mildly decreased. The visually estimated ejection fraction is between 45 50%. There is mild global hypokinesis. Diastolic function is normal for age. There is mild septal asymmetric hypertrophy. LV peak GLS -12.2%. Right Ventricle Normal right ventricular cavity size and systolic function. Atria Both atria are normal in size. Aortic Valve There is mild calcification of the aortic valve. There is no aortic valve stenosis. There is no aortic valve regurgitation. Mitral Valve The mitral valve appears normal. There is mild anterior mitral leaflet thickening. There is no mitral valve regurgitation. There is no mitral valve stenosis. Pulmonic Valve The pulmonic valve is likely normal. Tricuspid Valve Normal tricuspid valve structure. There is trace tricuspid valve regurgitation. There is no evidence of pulmonary hypertension. Great Vessels The asc aorta is normal in size. Venous The inferior vena cava is normal in size and collapses greater than 50% with inspiration. Pericardium/Pleural There is no evidence of pericardial effusion. Prior Study Comparison No prior study available for comparison. Recommendations, Care & Conclusions No obvious valvular pathology seen on this study. Measurements 2D Linear Measurements IVSd: 1.01 0.6-0.9/0.6-1.0 cm LVIDd: 4.71 3.9-5.3/4.2-5.9 cm LVIDd Index: 2.39 2.4-3.2/2.2-3.1 cm/m2 LVIDs: 3.55 2.0-3.6 cm LVPWd: 0.65 0.7-1.1 cm LA Diam: 3.60 2.7-3.8/3.0-4.0 cm LAIDs Index: 1.83 1.5-2.3 cm/m2 LV Mass: 160.27 67-162/88-224 g LV Mass Index: 81.36 43-95/49-115 g/m2 LVOT Diam: 2.20 3.0+(-)1.3 cm Mitral Valve MV Pk E: 0.60 MV PK A: 0.69 MV Decel Time: 188.00 E/A: 0.90 E'Lateral: 9.03 E'Medial: 4.90 E/E' Med: 12.30 E/E' Lat: 6.70 PHT: 55.00 MVA PHT: 4.00 Decel Bleckley: 3.21 Aortic Valve AoV Pk Torin: 0.97 AoV Pk Grad: 4.00 NITISH: 3.00 LVOT LVOT Pk Torin: 0.81 LVOT Mn Torin: 0.57 LVOT VTI: 0.17 LVOT Pk Grad: 3.00 LVOT Mn Grad: 1.00 LVOT Diam: 2.20 LVOT Area: 3.80 Diastolic Function MV Pk E: 0.60 MV Pk A: 0.69 E/A: 0.90 E'Medial: 4.90 E/E' Med: 12.30 E' Laterial: 9.03 E/E' Lat: 6.70 Right Ventricle TAPSE (mm): 22.90 TVS' Torin: 11.60 Tricuspid Valve RA Press: 3.00 Great Vessels Aorta Sinus of Valsalva: 3.90 2.0-3.5 cm Ao Asc: 3.30 2.1-3.4 cm Pulmonary Valve PV Pk Torin: 0.94 Peak PV Grad: 4.00 Updated in Other Vendor System with Status of Final Meliton Moreno MD electronically signed on 07/16/2023 2:41:00 PM with status of Final
[2023-07-13 13:16] LABS: Cholesterol 172 mg/dL (<200); HDL Cholesterol 46 mg/dL (>40); LDL Cholesterol Calculated 98 mg/dL (<100); Triglycerides 142 mg/dL (<150)
== END ==
LOC: HO.CARD 11:20
PROVIDERS: PCP Student in an Organized Health Care Education/Training Program; Visit Provider Internal Medicine Cardiovascular Disease
DX: I73.9 Peripheral vascular disease, unspecified (principal); R06.09 Other forms of dyspnea
CPT/HCPCS: 36415; 80061; 93306; 93356

== ENCOUNTER → 2023-07-13 11:23 | Outpatient (BNV) | payer OTHER, SELFPAY | PROVIDERS: PCP Student in an Organized Health Care Education/Training Program; Visit Provider Internal Medicine | DX: I35.8 Other nonrheumatic aortic valve disorders (principal); I34.89 Other nonrheumatic mitral valve disorders | CPT/HCPCS: 93306 ==

== ENCOUNTER → 2023-07-15 08:44 | Outpatient (REF) | payer OTHER, SELFPAY ==
--- NOTE | ~2023-07-15 | NM_ITS ---
Lexiscan Myocardial perfusion study Indication: Chest pain, shortness of breath Technique: The patient was brought in for a Lexiscan perfusion study on 07/15/2023 and was injected 0.4 mg of Lexiscan intravenously. Within a minute of this injection 25 mCi of sestamibi was given intravenously. Images were obtained using the SPECT gamma camera interlaced with the gating device. Images were obtained in supine position. Resting perfusion study was performed on 07/16/2023. Patient was administered 25 mCi of sestamibi intravenously at rest. Images were then obtained in supine position. Images were processed with the software and compared side to side in short axis, horizontal long axis and vertical long axis views. Total DLP 87mGy-cm. Findings: Raw acquisition reviewed. The stress perfusion study showed diminished tracer uptake along the inferior wall. There is improved uptake with CT attenuation correction suggestive of diaphragmatic attenuation artifact. The gated study shows normal LV systolic function with calculated LVEF of 57%. LV cavity is normal in size. The gated study shows normal wall thickening and contraction of segments. Resting study shows diminished tracer uptake along the basal inferior wall. There is improvement with CT attenuation correction suggestive of diaphragmatic attenuation artifact. Gating at rest reveals normal wall motion with ejection fraction at 50%. The findings are consistent with fixed basal inferior perfusion defect. No reversible defects. NM/NM cardiolite stress test Impression: 1. Myocardial perfusion imaging study shows fixed defect in the basal inferior wall. Could be from diaphragmatic attenuation artifact but cannot exclude old inferior infarct. No evidence of ischemia. 2. Gated LVEF is 57% during stress and 52% during rest. 3. Transient ischemic dilatation not present. EKG component of the test reported separately.
--- NOTE | 2023-07-15 08:46 | CA_ITS ---
Acquisition Time: 2023-07-15 08:56:12 Total Exercise Time: 00:00:12 Test Indications: CP, SOB Medications: SEE H Protocol: ERICK Max HR: 098 BPM 63% of Pred: 154 BPM Max BP: 124/068 mmHG Max Work Load: 1.2 METS Exercise stress test exercise 12 sec of Erick protocol with safety concerns. Achieived 59% MPHR without anginal symptoms, without arrhythmias, test terminated and swtiched to Pharmacoligcal stress test with Lexiscan injection. Pharmacolgilca stress test with Lexiscan injection, with mild SOB, no chest discomfort, no arrhythmias, with normotensive response to injection, with nondiagnoisitic EKG. Breathing resolved within 2 min. Nuclear images pending. Test reviewed with Dr. Moreno. Referred By: Matthew Worthington Overread By: Carlie Farias
== END ==
LOC: HO.CARD 08:44
PROVIDERS: PCP Student in an Organized Health Care Education/Training Program; Visit Provider Internal Medicine Cardiovascular Disease
DX: R06.09 Other forms of dyspnea (principal)
CPT/HCPCS: 78452; 93017; A9500; J0280; J2785

== ENCOUNTER → 2023-07-15 08:46 | Outpatient (BNV) | payer OTHER, SELFPAY | PROVIDERS: PCP Student in an Organized Health Care Education/Training Program; Visit Provider Nurse Practitioner | DX: R07.9 Chest pain, unspecified (principal); R06.09 Other forms of dyspnea | CPT/HCPCS: 78452; 93016; 93018 ==

== ENCOUNTER 2023-07-22 08:17 | Outpatient (AMB) | payer OTHER, SELFPAY ==
[2023-07-22 08:28] VITALS: BP 130/72; PULSE 72; BMI 25.3
--- NOTE | 2023-07-22 08:28 | MHC.OFFVIS ---
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 Allergies No Known Allergies Allergy (Verified 07/22/23 08:31) Medication List - Last Reconciled 07/22/23 by Jody Landa NP-C amlodipine 5 mg PO QAM aspirin 81 mg PO DAILY atorvastatin 40 mg PO BEDTIME calcipotriene 0.005% 1 appl topical BID cholecalciferol (vitamin D3) (Vitamin D3) 25 mcg PO DAILY clonidine HCl 0.1 mg PO BEDTIME clopidogrel (Plavix) 75 mg PO DAILY ezetimibe 10 mg PO DAILY finasteride 5 mg PO DAILY 90 days fluconazole 200 mg PO QWEEK hydrochlorothiazide 25 mg PO DAILY hydroxyzine HCl 25 mg PO BID lidocaine 5% (Lidoderm) 1 patch topical DAILY lisinopril 40 mg PO DAILY meclizine 12.5 mg PO BID metoprolol succinate ER 25 mg PO DAILY 30 days miconazole nitrate 2% (Antifungal (miconazole)) topical mupirocin 2% 1 appl topical TID nystatin topical TID olanzapine 10 mg PO DAILY polyethylene glycol 3350 (Miralax) 17 grams PO DAILY sennosides (Natural Senna Laxative) 8.6 mg PO BEDTIME sertraline 25 mg PO DAILY terazosin 10 mg PO BEDTIME 90 days HPI fu echo/ stress (KM) HPI Details Noe is a 68-year-old male past medical history of hypertension, smoking, peripheral vascular disease with SFA arthrectomy and PCI to [address] Freitas who was recently evaluated for chest discomfort. He underwent a in echocardiogram and stress test and now presents for follow-up. Today he reports he has been having less chest discomfort recently. He had been feeling a poking type sensation localized in his left chest region. It was occurring randomly, not brought on by exertion. No concerning shortness of breath, palpitation, presyncope, syncope, PND, orthopnea or edema. He is taking his meds as directed. He continues to smoke 10 cigarettes a day. [facility] Medical History (Updated 07/22/23 @ 11:07 by CAT GonzalezC) COVID-19 Tubular adenoma Anxiety HTN (hypertension) Surgical History S/P angiogram of extremity Hx of colonoscopy Family History Father Hx of colon cancer, stage IV Hx of diabetes insipidus Mother Family history of high blood pressure Social History Household Members: None Are you a primary career technical counselor to a significant other at home: No Do you presently have visiting nurse or other home services: No Alcohol intake: current Alcohol intake frequency: holidays/special occasions only Patient Tobacco Use Status: Current everyday Tobacco user Tobacco use type: Cigarette Cigarette Packs Per Day: 0.5 Cigarettes Per Day: 10 Years Smoked: 50 +/- Second Hand Smoke Exposure: No Current occupational status: unemployed Current occupation: left handed Review of Systems Const All systems reviewed & are unremarkable except as noted in HPI and below ENT Denies dizziness Card Reports chest pain, Denies chest pain at rest, Denies chest pain with activity, Reports rapid heart rate, Denies pedal edema, Denies edema, Denies leg edema, Denies lightheadedness, Denies palpitations, Denies dyspnea, Denies dyspnea on exertion and Denies orthopnea Resp Denies cough, Denies dyspnea and Denies dyspnea on exertion GI Denies hematochezia and Denies change in stool character Musc Denies abnormal gait, Denies limited range of motion, Denies muscle cramps, Denies muscle weakness, Denies numbness, Denies radiating pain into limb, Denies stiffness and Denies tingling Neuro Denies abnormal gait, Denies dizziness, Denies numbness and Denies tingling Endo Denies palpitations Physical Exam Vital Signs: Last Vital Signs Pulse 72 07/22/23 08:28 BP 130/72 07/22/23 08:28 BMI result Body Mass Index 25.3 Const General: cooperative, healthy appearing, comfortable and no acute distress Orientation/consciousness: patient oriented x3 Neck Neck: Yes normal visual inspection Carotids: normal carotid upstroke Resp Effort & Inspection: normal respiratory effort Auscultation: clear to auscultation bilaterally, no crackles, no rales, no rhonchi and no wheezes Cardio Jugular venous distension: no JVD Rate: regular rate Rhythm: regular rhythm Heart sounds: S1 normal heart sound present, S2 normal heart sound present, no gallops, no murmurs and no rubs Neuro General: patient oriented x3 Extrem General: Yes normal to inspection, No no pedal edema and No calf tenderness Psych Appearance: grossly normal Mental Status: mental status grossly normal Speech and movement: Normal speech and movement present Assessment & Plan Assessment & Plan (1) Abnormal nuclear stress test: Code(s): R94.39 - Abnormal result of other cardiovascular function study Plan: Atypical sounding chest discomfort. Cardiac risk factors including hypertension, smoking and peripheral vascular disease. No known cardiac history. He underwent an nuclear stress test on 07/15/2023 showing a fixed defect in the basal inferior wall, could be diaphragm attenuation, can not exclude old inferior infarct. An echocardiogram was done on 07/13/2023 showing EF 45-50%, mild global hypokinesis, mild septal asymmetric hypertrophy. He has no clinical signs of heart failure on examination. He is not aware of any prior GA history. At this time will order a CTA of the coronary arteries for further evaluation. EKG done on last visit showed sinus rhythm with frequent PVCs, nonspecific T-wave abnormality. Will check Holter monitor to assess frequency of PVCs. A high number of PVCs may be contributing to his mild cardiomyopathy. He is currently on lisinopril 40 mg daily. Will add low-dose metoprolol to help with neurohormonal modulation and PVC reduction. All the above reviewed with him. He is agreeable to this plan. Cardiology follow-up in 6 weeks, sooner if needed (2) Chest pain: Code(s): R07.9 - Chest pain, unspecified Plan: Poking type sensation to his left chest randomly. (3) Cardiomyopathy: Code(s): I42.9 - Cardiomyopathy, unspecified Qualifiers: Cardiomyopathy type: unspecified Qualified Code(s): I42.9 - Cardiomyopathy, unspecified Plan: Mild cardiomyopathy noted on echocardiogram. Nuclear stress is suggestive of possible prior inferior infarct. Checking CTA to evaluate for coronary artery disease. PVCs noted on last EKG. Holter monitor being done to evaluate frequency of PVCs. Reported to use alcohol only on holidays and special occasions. (4) HTN (hypertension): Code(s): I10 - Essential (primary) hypertension Qualifiers: Hypertension type: primary hypertension Qualified Code(s): I10 - Essential (primary) hypertension Plan: Well controlled at present. Adding low-dose metoprolol as above Orders: Orders ECG 3 day holter monitor Today I42.9 - Cardiomyopathy, unspecified, R94.39 - Abnormal result of other cardiovascular function study CT Cardiac Coronary Angio Today I42.9 - Cardiomyopathy, unspecified, R94.39 - Abnormal result of other cardiovascular function study Basic Metabolic Panel Today R94.39 - Abnormal result of other cardiovascular function study Medications: New metoprolol succinate ER 25 mg PO DAILY 30 days 30 tabs 3RF Coding Level of Care Code Est Pt Level 4 (12275) Diagnoses Abnormal nuclear stress test R94.39 Chest pain R07.9 Cardiomyopathy, unspecified type I42.9 Cardiomyopathy type: unspecified Primary hypertension I10 Hypertension type: primary hypertension Time Spent (min) 28
== END 2023-07-22 09:01 | disposition home or self-care (01) ==
PROVIDERS: PCP Student in an Organized Health Care Education/Training Program; Visit Provider Nurse Practitioner Family
DX: R94.39 Abnormal result of other cardiovascular function study (principal); R07.9 Chest pain, unspecified; I42.9 Cardiomyopathy, unspecified; I10 Essential (primary) hypertension
CPT/HCPCS: 99214

== ENCOUNTER → 2023-07-22 08:17 | Outpatient (BNVA) | payer OTHER, SELFPAY | PROVIDERS: PCP Student in an Organized Health Care Education/Training Program; Visit Provider Nurse Practitioner Family | DX: R94.39 Abnormal result of other cardiovascular function study (principal); R07.9 Chest pain, unspecified; I42.9 Cardiomyopathy, unspecified; I10 Essential (primary) hypertension | CPT/HCPCS: 99212 ==

== ENCOUNTER → 2023-08-06 08:46 | Outpatient (REF) | payer OTHER, SELFPAY ==
--- NOTE | 2023-08-06 08:48 | HM_ITS ---
Conclusion: 1. Patient was monitored for total period of 3 days 2. Baseline was normal sinus rhythm with average heart of 73 beats per minute 3. No significant pauses noted 4. Occasional ectopy noted 5. No patient reported symptoms MTDD
== END ==
LOC: HO.CARD 08:46
PROVIDERS: PCP Student in an Organized Health Care Education/Training Program; Visit Provider Nurse Practitioner Family
DX: R94.39 Abnormal result of other cardiovascular function study (principal); I42.9 Cardiomyopathy, unspecified; R00.0 Tachycardia, unspecified; I49.1 Atrial premature depolarization
CPT/HCPCS: 93242

== ENCOUNTER → 2023-08-06 08:48 | Outpatient (BNV) | payer OTHER, SELFPAY | PROVIDERS: PCP Student in an Organized Health Care Education/Training Program; Visit Provider Internal Medicine Cardiovascular Disease | DX: R00.1 Bradycardia, unspecified (principal) | CPT/HCPCS: 93244 ==

== ENCOUNTER 2023-08-11 09:21 | Outpatient (REF) | payer OTHER, SELFPAY ==
--- NOTE | ~2023-08-11 | US_ITS ---
EXAMINATION: NONINVASIVE ASSESSMENT OF THE ARTERIES OF BOTH LOWER EXTREMITIES WITH PVR EXAM AND BILATERAL LOWER EXTREMITY DUPLEX Lorelei Yanes MD CLINICAL INFORMATION: Peripheral vascular disease TECHNIQUE: Ankle pulse volume recordings, ankle pressure measurements and ankle brachial indices were obtained of the lower extremity arterial system bilaterally in addition to duplex Doppler techniques with wave form analysis and measurement of velocities in the common femoral, profunda femoral, superficial femoral, popliteal and tibial arteries. The study was performed only at rest. COMPARISON: Noninvasive arterial exam on 02/08/2023 FINDINGS: Diffuse bilateral atherosclerotic disease. a) AT REST: RIGHT LE. The right ankle-brachial index is: 0.98 * >0.97-1.25 = normal - no significant arterial disease * 0.75-0.96 = mild peripheral arterial disease * 0.5-0.74 = moderate peripheral arterial disease * <0.50 = severe peripheral arterial disease 2. Right ankle pressure: normal. 3. Right ankle PVR waveform: normal. 4. Right direct duplex Doppler findings: Common femoral artery: 128 cm/s, Multiphasic Profunda femoris artery: 122 cm/s, Multiphasic Superficial femoral artery (proximal): 89 cm/s, Multiphasic Superficial femoral artery (mid): 77 cm/s, Multiphasic Superficial femoral artery (distal): 65 cm/s, Multiphasic Proximal Popliteal artery: 61 cm/s, Multiphasic Mid posterior tibial artery: 18 cm/s, monophasic with reversal of flow LEFT LE. The left ankle-brachial index is: 0.98 * >0.97-1.25 = normal - no significant arterial disease * 0.75-0.96 = mild peripheral arterial disease * 0.5-0.74 = moderate peripheral arterial disease * <0.50 = severe peripheral arterial disease 2. Left ankle pressure: normal. 3. Left ankle PVR waveform: normal. 4. Left direct duplex Doppler findings: Common femoral artery: 111 cm/s, Multiphasic Profunda femoris artery: 143 cm/s, Multiphasic Superficial femoral artery (proximal): 89 cm/s, Multiphasic Superficial femoral artery (mid): 87 cm/s, Multiphasic Superficial femoral artery (distal): 95 cm/s, Multiphasic Proximal Popliteal artery: 99 cm/s, Multiphasic Mid posterior tibial artery: 90 cm/s, Multiphasic US/US arterial duplex LE BI IMPRESSION: RIGHT LEG: No hemodynamically significant stenoses in the proximal right lower extremity. Monophasic reversed flow in the right posterior tibial artery suggesting severe stenosis or occlusion, unchanged. LEFT LEG: No evidence of hemodynamically significant stenosis in the left lower extremity.
== END 2023-08-11 09:22 | disposition home or self-care (01) ==
LOC: HO.US 09:21
PROVIDERS: PCP Student in an Organized Health Care Education/Training Program; Visit Provider Surgery Vascular Surgery
DX: I73.9 Peripheral vascular disease, unspecified (principal)
CPT/HCPCS: 93923; 93925

== ENCOUNTER 2023-09-16 10:09 | Outpatient (REF) | payer OTHER, SELFPAY ==
[2023-09-16 14:49] LABS: Alanine Aminotransferase 22 U/L (0-40); Albumin Level 4.8 g/dL (3.5-5.0); Alkaline Phosphatase 67 U/L (39-117); Anion Gap 13 (12-20); Aspartate Amino Transferase 28 U/L (5-37); Bilirubin Direct 0.2 mg/dL (0.0-0.5); Bilirubin Total 0.4 mg/dL (0.0-1.0); Blood Urea Nitrogen 18 mg/dL (9-16); Carbon Dioxide 24 mmol/L (22-29); Chloride 104 mmol/L (96-108); Cholesterol 130 mg/dL (<200); Estimated Glomerular Filt Rate > 60; Glucose Random 78 mg/dL (60-115); HDL Cholesterol 53 mg/dL (>40); LDL Cholesterol Calculated 63 mg/dL (<100); Sodium 137 mmol/L (135-145); Total Protein 7.6 g/dL (6.5-8.0); Triglycerides 70 mg/dL (<150)
[2023-09-16 15:03] LABS: Prostate Specific Antigen 9.44 ng/mL (<0.05-4.0)
== END 2023-09-16 10:10 | disposition home or self-care (01) ==
LOC: HO.CHCLDS 10:09
PROVIDERS: Visit Provider Student in an Organized Health Care Education/Training Program
DX: Z12.5 Encounter for screening for malignant neoplasm of prostate (principal); I10 Essential (primary) hypertension; R97.20 Elevated prostate specific antigen [PSA]
CPT/HCPCS: 36415; 80048; 80061; 80076; 84153

== ENCOUNTER 2023-10-14 09:10 | Outpatient (AMB) | payer OTHER, SELFPAY ==
[2023-10-14 09:14] VITALS: BP 114/78; PULSE 67; O2SAT 100; BMI 25.4
--- NOTE | 2023-10-14 09:14 | A.OFFVIS_ITS ---
Intake Vital Signs 10/14/23 09:14 Height 5 ft 9 in Weight 172 lb BMI 25.4 BP 114/78 Blood Pressure Location Lt brachial Position Sitting Pulse 67 Pulse Source Pulse Oximeter Pulse Oximetry (%) 100 Oxygen Delivery Method Room Air Intake Visit Reasons: Hx of 10/28/2022 atherectomy and plasty of right SFA Intake Note: Pt presents to the office today for a hx of artherectomy and plasty of right SFA 10/28/22. Pt states he is feeling well and denies any concerns at this time. Allergies No Known Allergies Allergy (Verified 10/14/23 09:16) HPI Hx of 10/28/2022 atherectomy and plasty of right SFA HPI Details Very pleasant 68-year-old gentleman presents for follow-up regarding peripheral vascular disease. Had right lower extremity endovascular intervention nearly a year ago. Since that time he reports he is doing extremely well. He has been maintained on aspirin and statin. Can walk 2-3 blocks with no difficulty. He now presents for vascular follow-up with ultrasound. [facility] Medical History COVID-19 Tubular adenoma Anxiety HTN (hypertension) Surgical History S/P angiogram of extremity Hx of colonoscopy Family History Father Hx of colon cancer, stage IV Hx of diabetes insipidus Mother Family history of high blood pressure Social History Household Members: None Are you a primary care manager cna to a significant other at home: No Do you presently have visiting nurse or other home services: No Alcohol intake: current Alcohol intake frequency: holidays/special occasions only Patient Tobacco Use Status: Current everyday Tobacco user Tobacco use type: Cigarette Cigarette Packs Per Day: 0.5 Cigarettes Per Day: 10 Years Smoked: 50 +/- Second Hand Smoke Exposure: No Current occupational status: unemployed Current occupation: left handed Review of Systems Const All systems reviewed & are unremarkable except as noted in HPI and below Reports no additional complaints ENT Reports Normal hearing present Card Denies chest pain, Denies chest pain at rest, Denies chest pain with activity and Denies pedal edema Resp Denies cough GI Denies abdominal pain Musc Denies abnormal gait, Denies muscle cramps and Denies radiating pain into limb Skin/Breast Denies skin ulcer and Denies wounds Neuro Reports Normal hearing present and Denies abnormal gait Psych Reports no additional complaints Physical Exam Vital Signs: Last Vital Signs Pulse 67 10/14/23 09:14 BP 114/78 10/14/23 09:14 Pulse Ox 100 10/14/23 09:14 Oxygen Delivery Method Room Air 10/14/23 09:14 BMI result Body Mass Index 25.4 Const General: cooperative, healthy appearing and comfortable Orientation/consciousness: oriented to person, oriented to place and oriented to time HEENT Head: Yes normal to inspection Neck Neck: Yes normal visual inspection Carotids: no bruits Chest Chest palpation & inspection: normal inspection of the chest Resp Effort & Inspection: normal respiratory effort and able to speak in complete sentences Auscultation: clear to auscultation bilaterally, no crackles, no rales, no rhonchi and no wheezes Cardio Rate: regular rate Rhythm: regular rhythm Heart sounds: S1 normal heart sound present and S2 normal heart sound present Bruits: no carotid bruits Peripheral pulses: Peripheral pulses 2+ throughout GI Inspection: Yes normal to inspection Skin Wounds: no wounds Hair: normal Neuro General: oriented to person, oriented to place and oriented to time Cranial nerves: Yes CN's II-XII intact bilaterally and Yes Normal hearing present Cognition (Neuro): normal cognition Motor exam (neuro): 5/5 motor strength present throughout Extrem Other: venous exam: No significant superficial varicosities or spider telangiectasias, minimal edema General: No clubbing, No cyanosis and No edema Psych Appearance: grossly normal Mental Status: mental status grossly normal Speech and movement: Normal speech and movement present Results Reviewed Results Reviewed: Noninvasive arterial testing dated 08/11/2023 demonstrates FLORES on the right of 0.98 and on the left of 0.98. Written report and images were reviewed. Assessment & Plan Assessment & Plan (1) PAD (peripheral artery disease): Comment: 10/28/2022 atherectomy and plasty of right SFA Code(s): I73.9 - Peripheral vascular disease, unspecified Plan: In short patient has stable claudication. I did review the pathophysiology of peripheral vascular disease with the patient. In addition we did discuss routine conservative measures including a healthy diet and the importance of exercise and ambulation. We did discuss risk factor modification. The patient will continue to to follow-up with surveillance follow-up in approximately 1 year. Thank you for allowing us to participate in this patient's care. If there are any questions or concerns please do not hesitate to contact us. Coding Level of Care Code Est Pt Level 4 (00866) Diagnoses PAD (peripheral artery disease) I73.9
== END 2023-10-14 09:46 | disposition home or self-care (01) ==
PROVIDERS: PCP Student in an Organized Health Care Education/Training Program; Visit Provider Surgery Vascular Surgery
DX: I73.9 Peripheral vascular disease, unspecified (principal)
CPT/HCPCS: 99213

== ENCOUNTER → 2023-10-14 09:10 | Outpatient (BNVA) | payer OTHER, SELFPAY | PROVIDERS: PCP Student in an Organized Health Care Education/Training Program; Visit Provider Surgery Vascular Surgery | DX: I73.9 Peripheral vascular disease, unspecified (principal) | CPT/HCPCS: 99212 ==

== ENCOUNTER 2023-11-25 09:05 | Outpatient (AMB) | payer OTHER, SELFPAY ==
[2023-11-25 09:16] VITALS: BP 124/52; PULSE 97; BMI 26.6
--- NOTE | 2023-11-25 09:16 | MHC.OFFVIS ---
Intake Vital Signs 11/25/23 09:16 Height 5 ft 9 in Weight 179 lb 14.355 oz BMI 26.6 BP 124/52 L Blood Pressure Location Lt brachial Position Sitting Pulse 97 Pulse Source Pulse Oximeter Intake Visit Reasons: f/u CTA and Holter Porter Bath Required: No Allergies No Known Allergies Allergy (Verified 11/25/23 09:18) Medication List - Last Reconciled 11/25/23 by PIYUSH Gonzalez amlodipine 5 mg PO QAM aspirin 81 mg PO DAILY atorvastatin 40 mg PO BEDTIME calcipotriene 0.005% 1 appl topical BID cholecalciferol (vitamin D3) (Vitamin D3) 25 mcg PO DAILY clonidine HCl 0.1 mg PO BEDTIME clopidogrel (Plavix) 75 mg PO DAILY ezetimibe 10 mg PO DAILY finasteride 5 mg PO DAILY 90 days fluconazole 200 mg PO QWEEK hydrochlorothiazide 25 mg PO DAILY hydroxyzine HCl 25 mg PO BID lidocaine 5% (Lidoderm) 1 patch topical DAILY lisinopril 40 mg PO DAILY meclizine 12.5 mg PO BID metoprolol succinate ER 25 mg PO DAILY 30 days miconazole nitrate 2% (Antifungal (miconazole)) topical mupirocin 2% 1 appl topical TID nystatin topical TID olanzapine 10 mg PO DAILY polyethylene glycol 3350 (Miralax) 17 grams PO DAILY sennosides (Natural Senna Laxative) 8.6 mg PO BEDTIME sertraline 25 mg PO DAILY terazosin 10 mg PO BEDTIME 90 days HPI f/u CTA and Holter HPI Details Noe is a 68-year-old male past medical history of hypertension, smoking, peripheral vascular disease with SFA arthrectomy and PCI 11/[address] Mcclain who has undergone evaluation for chest discomfort and recently had a CTA of the coronary arteries and Holter monitor, now presenting for follow-up. Today he reports that he has been feeling good overall. He says he has not been getting the chest discomfort recently. When he had it it was described as a poking type sensation to the left chest region. He denies any shortness of breath, palpitations, lightheadedness, presyncope, syncope, PND, orthopnea or edema. He is having urinary issues, retention and tells me that he will need a bladder biopsy in the near future. He just saw the urologist so no date yet. Takes his meds as directed. [facility] Medical History COVID-19 Tubular adenoma Anxiety HTN (hypertension) Surgical History S/P angiogram of extremity Hx of colonoscopy Family History Father Hx of colon cancer, stage IV Hx of diabetes insipidus Mother Family history of high blood pressure Social History Household Members: None Are you a primary congregational care pastor to a significant other at home: No Do you presently have visiting nurse or other home services: No Alcohol intake: current Alcohol intake frequency: holidays/special occasions only Patient Tobacco Use Status: Current everyday Tobacco user Tobacco use type: Cigarette Cigarette Packs Per Day: 0.5 Cigarettes Per Day: 10 Years Smoked: 50 +/- Second Hand Smoke Exposure: No Current occupational status: unemployed Current occupation: left handed Review of Systems Const All systems reviewed & are unremarkable except as noted in HPI and below ENT Denies dizziness Card Denies chest pain, Denies chest pain at rest, Denies chest pain with activity, Denies rapid heart rate, Denies pedal edema, Denies edema, Denies leg edema, Denies lightheadedness, Denies palpitations, Denies dyspnea, Denies dyspnea on exertion and Denies orthopnea Resp Denies cough, Denies dyspnea and Denies dyspnea on exertion GI Denies hematochezia and Denies change in stool character Musc Denies abnormal gait, Denies limited range of motion, Denies muscle cramps, Denies muscle weakness, Denies numbness, Denies radiating pain into limb, Denies stiffness and Denies tingling Neuro Denies abnormal gait, Denies dizziness, Denies numbness and Denies tingling Endo Denies palpitations Physical Exam Vital Signs: Last Vital Signs Pulse 97 11/25/23 09:16 BP 124/52 L 11/25/23 09:16 BMI result Body Mass Index 26.6 Const General: cooperative, healthy appearing, comfortable and no acute distress Orientation/consciousness: patient oriented x3 Neck Neck: Yes normal visual inspection Resp Effort & Inspection: normal respiratory effort Auscultation: clear to auscultation bilaterally, no crackles, no rales, no rhonchi and no wheezes Cardio Jugular venous distension: no JVD Rate: regular rate Rhythm: regular rhythm Heart sounds: S1 normal heart sound present, S2 normal heart sound present, no murmurs and no rubs Neuro General: patient oriented x3 Extrem General: Yes normal to inspection and No no pedal edema Psych Appearance: grossly normal Mental Status: mental status grossly normal Speech and movement: Normal speech and movement present Assessment & Plan Assessment & Plan (1) Abnormal nuclear stress test: Code(s): R94.39 - Abnormal result of other cardiovascular function study Plan: History of Atypical sounding chest discomfort. Cardiac risk factors including hypertension, smoking and peripheral vascular disease. No prior known cardiac history. He underwent an nuclear stress test on 07/15/2023 showing a fixed defect in the basal inferior wall, could be diaphragm attenuation, can not exclude old inferior infarct. An echocardiogram was done on 07/13/2023 showing EF 45-50%, mild global hypokinesis, mild septal asymmetric hypertrophy. He then underwent a CTA of the coronary arteries which shows moderate to severe stenosis of the proximal segment of the mid circumflex and a small non dominant RCA with 2 dense calcific plaques in the proximal segment that obscures the lumen and generate nondiagnostic images. Test results reviewed with him in detail. At this time he denies having any chest discomfort. He is on dual antianginals with amlodipine and metoprolol XL. Is also on aspirin and he is on Plavix for his peripheral vascular disease. Also on moderate dose atorvastatin with ideal LDL goal less than 70. For his CTA images and FFR result is still pending. 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 Worthington. ? Proceed with cardiac catheterization or continue with med management. EKG done last visit did show frequent PVCs. A Holter monitor was done on 08/06/2023 for 3 days shows sinus rhythm, average rate 73, occasional ectopy. At present will continue current medications. Signs and symptoms of angina reviewed with him. Cardiology follow-up in 2 months, sooner if needed. Emergency care if ever needed for symptoms. (2) Chest pain: Code(s): R07.9 - Chest pain, unspecified Plan: Poking type sensation to his left chest randomly. (3) Cardiomyopathy: Code(s): I42.9 - Cardiomyopathy, unspecified Qualifiers: Cardiomyopathy type: unspecified Qualified Code(s): I42.9 - Cardiomyopathy, unspecified Plan: Mild cardiomyopathy noted on echocardiogram. Nuclear stress is suggestive of possible prior inferior infarct. CTA results as above. PVCs noted on last EKG but only occasional seen on Holter. His cardiomyopathy could be related to ischemia. At this time he is on metoprolol XL and lisinopril for neurohormonal modulation. No clinical signs of heart failure on examination. (4) HTN (hypertension): Code(s): I10 - Essential (primary) hypertension Qualifiers: Hypertension type: primary hypertension Qualified Code(s): I10 - Essential (primary) hypertension Plan: Well controlled at present. No med changes made Plan Time spent on chart review, documentation, interview and assessment Coding Level of Care Code Est Pt Level 4 (57795) Diagnoses Abnormal nuclear stress test R94.39 Chest pain R07.9 Cardiomyopathy, unspecified type I42.9 Cardiomyopathy type: unspecified Primary hypertension I10 Hypertension type: primary hypertension Time Spent (min) 30
== END 2023-11-25 09:37 | disposition home or self-care (01) ==
PROVIDERS: PCP Student in an Organized Health Care Education/Training Program; Visit Provider Nurse Practitioner Family
DX: R94.39 Abnormal result of other cardiovascular function study (principal); R07.9 Chest pain, unspecified; I42.9 Cardiomyopathy, unspecified; I10 Essential (primary) hypertension
CPT/HCPCS: 99214

== ENCOUNTER → 2023-11-25 09:05 | Outpatient (BNVA) | payer OTHER, SELFPAY | PROVIDERS: PCP Student in an Organized Health Care Education/Training Program; Visit Provider Nurse Practitioner Family | DX: R94.39 Abnormal result of other cardiovascular function study (principal); R07.9 Chest pain, unspecified; I42.9 Cardiomyopathy, unspecified; I10 Essential (primary) hypertension | CPT/HCPCS: 99212 ==

== ENCOUNTER 2024-01-21 12:58 | Outpatient (AMB) | payer OTHER, SELFPAY ==
[2024-01-21 13:07] VITALS: BP 120/60; PULSE 76; BMI 25.6
--- NOTE | 2024-01-21 13:07 | A.OFFVIS_ITS ---
Vital Signs 01/21/24 13:07 Height 5 ft 9 in Weight 173 lb 4.533 oz BMI 25.6 BP 120/60 Blood Pressure Location Lt brachial Position Sitting Pulse 76 Intake Visit Reasons: r/s 01/24/24 2 mos followup Claim Review Medical Director Required: No Allergies No Known Allergies Allergy (Verified 01/21/24 13:10) Medication List - Last Reconciled 01/21/24 by PIYUSH Gonzalez amlodipine 5 mg PO QAM aspirin 81 mg PO DAILY atorvastatin 40 mg PO BEDTIME calcipotriene 0.005% 1 appl topical BID cholecalciferol (vitamin D3) (Vitamin D3) 25 mcg PO DAILY clonidine HCl 0.1 mg PO BEDTIME clopidogrel (Plavix) 75 mg PO DAILY ezetimibe 10 mg PO DAILY finasteride 5 mg PO DAILY 90 days fluconazole 200 mg PO QWEEK hydrochlorothiazide 25 mg PO DAILY hydroxyzine HCl 25 mg PO BID lidocaine 5% (Lidoderm) 1 patch topical DAILY lisinopril 40 mg PO DAILY meclizine 12.5 mg PO BID metoprolol succinate ER 25 mg PO DAILY 90 days miconazole nitrate 2% (Antifungal (miconazole)) topical mupirocin 2% 1 appl topical TID nystatin topical TID olanzapine 10 mg PO DAILY polyethylene glycol 3350 (Miralax) 17 grams PO DAILY sennosides (Natural Senna Laxative) 8.6 mg PO BEDTIME sertraline 25 mg PO DAILY terazosin 10 mg PO BEDTIME 90 days HPI HPI r/s 01/24/24 2 mos followup: Details: Noe is a 68-year-old male past medical history of hypertension, smoking, peripheral vascular disease with SFA arthrectomy and PCI 11/[address] Mcclain who has undergone evaluation for chest discomfort and recently had a CTA of the coronary arteries showing obstructive coronary disease. A diagnostic cardiac catheterization has been planned however several calls to the patient were made and no return call received. His test has not been scheduled as of yet. Today he reports that he is being evaluated by Urology and wanted to wait until after his testing was done before scheduling his cardiac catheterization procedure. He states he had an MRI done on 12/31 and he has a follow-up with the urologist on 01/23 to go over the results. He tells me he has been experiencing some right flank area discomfort for the last few weeks. He has no hematuria. He denies having chest discomfort at rest or with activity. He denies any shortness of breath, palpitations, lightheadedness, presyncope, syncope, PND, orthopnea or edema. He does report some decreased energy and fatigue. He tries to walk routinely. He continues to smoke 10 cigarettes per day. Taking meds as directed. [facility] Medical History COVID-19 Tubular adenoma Anxiety HTN (hypertension) Surgical History S/P angiogram of extremity Hx of colonoscopy Family History Father Hx of colon cancer, stage IV Hx of diabetes insipidus Mother Family history of high blood pressure Social History Household Members: None Are you a primary care director to a significant other at home: No Do you presently have visiting nurse or other home services: No Alcohol intake: current Alcohol intake frequency: holidays/special occasions only Patient Tobacco Use Status: Current everyday Tobacco user Tobacco use type: Cigarette Cigarette Packs Per Day: 0.5 Cigarettes Per Day: 10 Years Smoked: 50 +/- Second Hand Smoke Exposure: No Current occupational status: unemployed Current occupation: left handed Review of Systems Const All systems reviewed & are unremarkable except as noted in HPI and below ENT Denies dizziness Card Denies chest pain, Denies chest pain at rest, Denies chest pain with activity, Denies rapid heart rate, Denies pedal edema, Denies edema, Denies leg edema, Denies lightheadedness, Denies palpitations, Denies dyspnea, Denies dyspnea on exertion and Denies orthopnea Resp Denies cough, Denies dyspnea and Denies dyspnea on exertion GI Denies hematochezia and Denies change in stool character Details: right flank discomfort Musc Denies abnormal gait, Denies limited range of motion, Denies muscle cramps, Denies muscle weakness, Denies numbness, Denies radiating pain into limb, Denies stiffness and Denies tingling Neuro Denies abnormal gait, Denies dizziness, Denies numbness and Denies tingling Endo Denies palpitations Physical Exam Vital Signs: Last Vital Signs Pulse 76 01/21/24 13:07 BP 120/60 01/21/24 13:07 BMI result Body Mass Index 25.6 Const General: cooperative, healthy appearing, comfortable and no acute distress Orientation/consciousness: patient oriented x3 Neck Neck: Yes normal visual inspection and Yes no JVD Resp Effort & Inspection: normal respiratory effort Auscultation: clear to auscultation bilaterally, no crackles, no rales, no rhonchi and no wheezes Cardio Jugular venous distension: no JVD Rate: regular rate Rhythm: regular rhythm Heart sounds: S1 normal heart sound present, S2 normal heart sound present, no murmurs and no rubs Neuro General: patient oriented x3 Extrem General: Yes normal to inspection, No no pedal edema and No calf tenderness Psych Appearance: grossly normal Mental Status: mental status grossly normal Speech and movement: Normal speech and movement present Assessment & Plan Assessment & Plan (1) Abnormal nuclear stress test: Code(s): R94.39 - Abnormal result of other cardiovascular function study Category: Medical Plan: Prior reports of Atypical sounding chest discomfort. Cardiac risk factors including hypertension, smoking and peripheral vascular disease. No prior known cardiac history. He underwent an nuclear stress test on 07/15/2023 showing a fixed defect in the basal inferior wall, could be diaphragm attenuation, can not exclude old inferior infarct. An echocardiogram was done on 07/13/2023 showing EF 45-50%, mild global hypokinesis, mild septal asymmetric hypertrophy. He then underwent a CTA of the coronary arteries which shows moderate to severe stenosis of the proximal segment of the mid circumflex and a small non dominant RCA with 2 dense calcific plaques in the proximal segment that obscures the lumen and generate nondiagnostic images. FFR of the distal LAD as low as 0.63, FFR of the distal circumflex as low as 0.57. We have attempted to set up diagnostic cardiac catheterization on him and he did not call us back in spite of several calls made. Today he tells me that he is undergoing urological evaluation and had an MRI on 01/01/2024. He has a follow-up with Urology on 01/24/2024. He states based on that finding will better no his plan of care and can then focus on his heart. He is agreeable to the cardiac catheterization procedure and understands the need for it. Denies any anginal sounding symptoms at this time. Signs and symptoms of angina reviewed with him in detail. Will have him continue on dual antianginals with amlodipine and metoprolol XL. Is also on aspirin and he is on Plavix for his peripheral vascular disease. Also on moderate dose atorvastatin with ideal LDL goal less than 70. Labs done on 09/16/2023 showed LDL 63. Will plan to obtain notes from his urologist next week following evaluation. If no surgical procedures planned then we may go ahead and set up his cardiac catheterization. Cardiology follow-up in 2 months, sooner if needed. Emergency care if ever needed for symptoms. (2) Cardiomyopathy: Code(s): I42.9 - Cardiomyopathy, unspecified Category: Medical Qualifiers: Cardiomyopathy type: unspecified Qualified Code(s): I42.9 - Cardiomyopathy, unspecified Plan: Mild cardiomyopathy noted on echocardiogram. Nuclear stress is suggestive of possible prior inferior infarct. CTA results as above. PVCs noted on last EKG but only occasional seen on Holter. His cardiomyopathy could be related to ischemia. At this time he is on metoprolol XL and lisinopril for neurohormonal modulation. No clinical signs of heart failure on examination. Blood pressure and heart rate well controlled (3) HTN (hypertension): Code(s): I10 - Essential (primary) hypertension Category: Medical Qualifiers: Hypertension type: primary hypertension Qualified Code(s): I10 - Essential (primary) hypertension Plan: Well controlled at present. No med changes made Plan Time spent on chart review, documentation, interview and assessment Coding Level of Care Code Est Pt Level 4 (54943) Diagnoses Abnormal nuclear stress test R94.39 Cardiomyopathy, unspecified type I42.9 Cardiomyopathy type: unspecified Primary hypertension I10 Hypertension type: primary hypertension Time Spent (min) 28
== END 2024-01-21 13:54 | disposition home or self-care (01) ==
PROVIDERS: PCP Student in an Organized Health Care Education/Training Program; Visit Provider Nurse Practitioner Family
DX: R94.39 Abnormal result of other cardiovascular function study (principal); I42.9 Cardiomyopathy, unspecified; I10 Essential (primary) hypertension
CPT/HCPCS: 99214

== ENCOUNTER → 2024-01-21 12:58 | Outpatient (BNVA) | payer OTHER, SELFPAY | PROVIDERS: PCP Student in an Organized Health Care Education/Training Program; Visit Provider Nurse Practitioner Family | DX: R94.39 Abnormal result of other cardiovascular function study (principal); I42.9 Cardiomyopathy, unspecified; I10 Essential (primary) hypertension; Z79.899 Other long term (current) drug therapy | CPT/HCPCS: 99212 ==

== ENCOUNTER 2024-02-24 08:58 | Outpatient (REF) | payer OTHER, SELFPAY ==
[2024-02-24 14:40] LABS: MANUAL DIFF FLAG NO
[2024-02-24 14:50] LABS: Basophils Absolute Auto 0.1 X10*3/uL (0.0-0.2); Basophils Percent Auto 1.8 % (0-2); Eosinophils Absolute Auto 0.2 X10*3/uL (0.0-0.4); Eosinophils Percent Auto 3.2 % (0-4); Hematocrit 43.2 % (42.0-52.0); Hemoglobin 14.3 g/dl (14.0-18.0); Imm Gran Abs Auto 0.03 X10*3/uL (0.00-0.03); Imm Gran Pct Auto 0.5 % (0.0-0.4); Lymphocytes Absolute Auto 1.7 X10*3/uL (1.2-4.9); Lymphocytes Percent Auto 27.8 % (20-40); Mean Corpuscular HGB Conc 33.1 g/dl (31.0-36.0); Mean Corpuscular Hemoglobin 30.5 pg (27.0-33.0); Mean Corpuscular Volume 92.1 fL (80.0-98.0); Mean Platelet Volume 12.6 fL (9.4-12.4); Monocytes Absolute Auto 0.4 X10*3/uL (0.1-1.2); Monocytes Percent Auto 6.6 % (2-11); Neutrophils Absolute Auto 3.7 x10*3/uL (2.0-8.3); Neutrophils Percent Auto 60.1 % (45-73); Platelet Count 200 X10*3/uL (160-400); Red Blood Count 4.69 X10*6/uL (4.60-5.80); Red Cell Distribution Width 13.2 % (11.0-16.0); White Blood Count 6.2 X10*3/uL (4.8-10.8)
[2024-02-24 14:57] LABS: INTERNATIONAL NORM RATIO 0.9 (0.9-1.1); Prothrombin Time 11.3 SEC (11.1-13.3)
[2024-02-24 15:11] LABS: Anion Gap 16 (12-20); Blood Urea Nitrogen 23 mg/dL (9-16); Calcium 9.7 mg/dL (8.4-10.2); Carbon Dioxide 23 mmol/L (22-29); Chloride 104 mmol/L (96-108); Estimated Glomerular Filt Rate > 60; Glucose Random 92 mg/dL (60-115); Potassium 4.5 mmol/L (3.3-5.1); Sodium 138 mmol/L (135-145)
== END 2024-02-24 08:59 | disposition home or self-care (01) ==
LOC: HO.CHCLDS 08:58
PROVIDERS: Visit Provider Nurse Practitioner Family
DX: R93.1 Abnormal findings on diagnostic imaging of heart and coronary circulation (principal)
CPT/HCPCS: 36415; 80048; 85025; 85610

== ENCOUNTER → 2024-02-29 23:59 | Outpatient (BNV) | payer OTHER, SELFPAY | PROVIDERS: PCP Student in an Organized Health Care Education/Training Program; Visit Provider Internal Medicine Cardiovascular Disease | DX: R93.1 Abnormal findings on diagnostic imaging of heart and coronary circulation (principal) | CPT/HCPCS: 93458; 99152 ==

== ENCOUNTER 2024-03-14 14:17 | Outpatient (AMB) | payer OTHER, SELFPAY ==
[2024-03-14 14:39] VITALS: BP 114/62; PULSE 79; BMI 25.7
--- NOTE | 2024-03-14 14:39 | A.OFFVIS_ITS ---
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 Mcclain who has undergone evaluation for chest discomfort and recently had a CTA of the coronary arteries showing obstructive coronary disease. He then underwent a diagnostic cardiac catheterization and now presents for follow-up. Today he reports that he has been feeling good with no concerning symptoms. He still needs to undergo a prostate biopsy in the near future, nothing is scheduled as of yet. He has no chest discomfort at rest or with activity. No shortness of breath, palpitations, lightheadedness, presyncope, syncope, PND, orthopnea or edema. He does report some decreased energy and fatigue. Right radial catheterization site is feeling good. He tries to walk routinely. He continues to smoke 10 cigarettes per day. Taking meds as directed. [facility] Medical History COVID-19 Tubular adenoma Anxiety HTN (hypertension) Surgical History S/P angiogram of extremity Hx of colonoscopy Family History Father Hx of colon cancer, stage IV Hx of diabetes insipidus Mother Family history of high blood pressure Social History Household Members: None Are you a primary home care associate to a significant other at home: No Do you presently have visiting nurse or other home services: No Alcohol intake: current Alcohol intake frequency: holidays/special occasions only Patient Tobacco Use Status: Current everyday Tobacco user Tobacco use type: Cigarette Cigarette Packs Per Day: 0.5 Cigarettes Per Day: 10 Years Smoked: 50 +/- Second Hand Smoke Exposure: No Current occupational status: unemployed Current occupation: left handed Review of Systems Const All systems reviewed & are unremarkable except as noted in HPI and below ENT Denies dizziness Card Denies chest pain, Denies chest pain at rest, Denies chest pain with activity, Denies rapid heart rate, Denies pedal edema, Denies edema, Denies leg edema, Denies lightheadedness, Denies palpitations, Denies dyspnea, Denies dyspnea on exertion and Denies orthopnea Resp Denies cough, Denies dyspnea and Denies dyspnea on exertion GI Denies hematochezia and Denies change in stool character Musc Details: right radial cath site feels good Denies abnormal gait, Denies limited range of motion, Denies muscle cramps, Denies muscle weakness, Denies numbness, Denies radiating pain into limb, Denies stiffness and Denies tingling Neuro Denies abnormal gait, Denies dizziness, Denies numbness and Denies tingling Endo Denies palpitations Physical Exam Vital Signs: BMI result Body Mass Index 25.7 Const General: cooperative, healthy appearing, comfortable and no acute distress Orientation/consciousness: patient oriented x3 Neck Neck: Yes normal visual inspection and Yes no JVD Resp Effort & Inspection: normal respiratory effort Auscultation: clear to auscultation bilaterally, no crackles, no rales, no rhonchi and no wheezes Cardio Jugular venous distension: no JVD Rate: regular rate Rhythm: regular rhythm Heart sounds: S1 normal heart sound present, S2 normal heart sound present, no murmurs and no rubs Neuro General: patient oriented x3 Extrem Other: right radial cath site well healed General: Yes normal to inspection, No no pedal edema and No calf tenderness Psych Appearance: grossly normal Mental Status: mental status grossly normal Speech and movement: Normal speech and movement present Assessment & Plan Assessment & Plan (1) Abnormal nuclear stress test: Code(s): R94.39 - Abnormal result of other cardiovascular function study Category: Medical Plan: Prior reports of Atypical sounding chest discomfort. Cardiac risk factors including hypertension, smoking and peripheral vascular disease. No prior known cardiac history. He underwent an nuclear stress test on 07/15/2023 showing a fixed defect in the basal inferior wall, could be diaphragm attenuation, can not exclude old inferior infarct. An echocardiogram was done on 07/13/2023 showing EF 45-50%, mild global hypokinesis, mild septal asymmetric hypertrophy. He then underwent a CTA of the coronary arteries which shows moderate to severe stenosis of the proximal segment of the mid circumflex and a small non dominant RCA with 2 dense calcific plaques in the proximal segment that obscures the lumen and generate nondiagnostic images. FFR of the distal LAD as low as 0.63, FFR of the distal circumflex as low as 0.57. He then had a diagnostic cardiac catheterization on 02/29/2024 showing moderate mid left circumflex stenosis and RCA stenosis. Today he reports no anginal sounding symptoms. All test results reviewed with him in detail. Diagnosis of nonobstructive coronary artery disease. He needs to continue aspirin indefinitely. He is on Plavix for his peripheral vascular disease. Continue moderate dose atorvastatin with ideal LDL goal less than 70. Labs done on 09/16/2023 showed LDL 63. Continue amlodipine and metoprolol. Blood pressure is well controlled. Signs and symptoms of angina reviewed with him in detail. Continue activity as tolerated. He may proceed with his prostate biopsy with a low to intermediate cardiac risk. Aspirin can be held if needed. Cardiology follow-up in 6 months, sooner if needed. (2) S/P cardiac cath: Comment: 02/29/2024, lad mild luminal irregularities less than 30% stenosis, mid circumflex 50-60% stenosis, RCA moderate disease, non dominant vessel. Code(s): Z98.890 - Other specified postprocedural states Category: Surgical Plan: Right radial catheterization site well healed (3) Cardiomyopathy: Code(s): I42.9 - Cardiomyopathy, unspecified Category: Medical Qualifiers: Cardiomyopathy type: unspecified Qualified Code(s): I42.9 - Cardiomyopathy, unspecified Plan: Mild cardiomyopathy noted on prior echocardiogram, EF 45-50%. His cardiomyopathy has been determined to be nonischemic. He is on metoprolol XL and lisinopril for neurohormonal modulation. No clinical signs of heart failure on examination. Blood pressure and heart rate well controlled. Will plan for repeat echo prior to his next visit. (4) HTN (hypertension): Code(s): I10 - Essential (primary) hypertension Category: Medical Qualifiers: Hypertension type: primary hypertension Qualified Code(s): I10 - Essential (primary) hypertension Plan: Well controlled at present. No med changes made Plan Time spent on chart review, documentation, interview and assessment Orders: Orders CA echo transthoracic complete 08/28/24 I42.9 - Cardiomyopathy, unspecified Coding Level of Care Code Est Pt Level 4 (11430) Diagnoses Abnormal nuclear stress test R94.39 S/P cardiac cath Z98.890 Cardiomyopathy, unspecified type I42.9 Cardiomyopathy type: unspecified Primary hypertension I10 Hypertension type: primary hypertension Time Spent (min) 28
== END 2024-03-14 15:03 | disposition home or self-care (01) ==
PROVIDERS: PCP Student in an Organized Health Care Education/Training Program; Visit Provider Nurse Practitioner Family
DX: R94.39 Abnormal result of other cardiovascular function study (principal); Z98.890 Other specified postprocedural states; I42.9 Cardiomyopathy, unspecified; I10 Essential (primary) hypertension
CPT/HCPCS: 99214

== ENCOUNTER → 2024-03-14 14:17 | Outpatient (BNVA) | payer OTHER, SELFPAY | PROVIDERS: PCP Student in an Organized Health Care Education/Training Program; Visit Provider Nurse Practitioner Family | DX: R94.39 Abnormal result of other cardiovascular function study (principal); I42.9 Cardiomyopathy, unspecified; I10 Essential (primary) hypertension; Z98.890 Other specified postprocedural states | CPT/HCPCS: 99212 ==

== ENCOUNTER 2024-03-29 09:32 | Outpatient (REF) | payer OTHER, SELFPAY ==
--- NOTE | ~2024-03-29 | XR_ITS ---
EXAMINATION: XR LUMBAR SPINE XR RIGHT HIP CLINICAL INFORMATION: Right hip pain. Acute back pain with sciatica. Pain x1 week. Patient denies accident or injury. COMPARISON: None available. TECHNIQUE: AP, lateral and bilateral oblique views of the lumbar spine were obtained. AP and lateral views of the right hip were obtained. FINDINGS: Lumbar spine: The bones are osteopenic. There are 5 nonrib-bearing lumbar vertebral bodies. There is mild retrolisthesis of L1 on L2, L2 on L3, L3 on L4, and L4 on L5. Vertebral body heights are maintained. Moderate multilevel diffuse intervertebral disc space narrowing. Facet hypertrophy at L5-S1. No spondylolysis. Sclerotic changes of the sacroiliac joints. Atherosclerotic changes of the abdominal aorta with possible aneurysmal dilatation. Rounded calcifications projecting over the right upper quadrant may represent gallstones. Right hip: Normal anatomic alignment. There is mild axial cartilage space loss with hypertrophic lipping and marginal osteophytes. No displaced fracture. Parasymphyseal sclerosis. Vascular calcifications are noted. XR/XR hip RT min 2V IMPRESSION: Moderate multilevel lumbar spondylosis. 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 Atherosclerotic changes of the abdominal aorta with possible aneurysmal dilatation. Mild osteoarthritis of the right hip. Possible cholelithiasis. Advise right upper quadrant ultrasound.
--- NOTE | ~2024-03-29 | XR_ITS ---
EXAMINATION: XR LUMBAR SPINE XR RIGHT HIP CLINICAL INFORMATION: Right hip pain. Acute back pain with sciatica. Pain x1 week. Patient denies accident or injury. COMPARISON: None available. TECHNIQUE: AP, lateral and bilateral oblique views of the lumbar spine were obtained. AP and lateral views of the right hip were obtained. FINDINGS: Lumbar spine: The bones are osteopenic. There are 5 nonrib-bearing lumbar vertebral bodies. There is mild retrolisthesis of L1 on L2, L2 on L3, L3 on L4, and L4 on L5. Vertebral body heights are maintained. Moderate multilevel diffuse intervertebral disc space narrowing. Facet hypertrophy at L5-S1. No spondylolysis. Sclerotic changes of the sacroiliac joints. Atherosclerotic changes of the abdominal aorta with possible aneurysmal dilatation. Rounded calcifications projecting over the right upper quadrant may represent gallstones. Right hip: Normal anatomic alignment. There is mild axial cartilage space loss with hypertrophic lipping and marginal osteophytes. No displaced fracture. Parasymphyseal sclerosis. Vascular calcifications are noted. XR/XR lumbar spine 4V min IMPRESSION: Moderate multilevel lumbar spondylosis. 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 Atherosclerotic changes of the abdominal aorta with possible aneurysmal dilatation. Mild osteoarthritis of the right hip. Possible cholelithiasis. Advise right upper quadrant ultrasound.
== END 2024-03-29 09:33 | disposition home or self-care (01) ==
LOC: HO.HHCX 09:32
PROVIDERS: Visit Provider Pediatrics
DX: M54.41 Lumbago with sciatica, right side (principal)
CPT/HCPCS: 72110; 73502

== ENCOUNTER 2024-05-03 12:38 | Outpatient (AMB) | payer OTHER, SELFPAY ==
--- NOTE | 2024-05-03 12:57 | MHC.OFFVIS ---
Intake Visit Reasons: Inj- LT shoulder cortisone Intake Note: Noe a 68 year old male who presents today for a follow up of left shoulder, last injection 03/12/23. Patient reports injection provided him with some relief. He would like to repeat injection. He also mentions recently diagnosed with arthritis in his right hip. Allergies No Known Allergies Allergy (Verified 05/03/24 13:05) Medication List - Last Reconciled 05/03/24 by Alex Iglesias PA-C amlodipine 5 mg PO QAM aspirin 81 mg PO DAILY atorvastatin 40 mg PO BEDTIME calcipotriene 0.005% 1 appl topical BID cholecalciferol (vitamin D3) (Vitamin D3) 25 mcg PO DAILY clonidine HCl 0.1 mg PO BEDTIME clopidogrel (Plavix) 75 mg PO DAILY ezetimibe 10 mg PO DAILY finasteride 5 mg PO DAILY 90 days fluconazole 200 mg PO QWEEK hydrochlorothiazide 25 mg PO DAILY hydroxyzine HCl 25 mg PO BID lidocaine 5% (Lidoderm) 1 patch topical DAILY lisinopril 40 mg PO DAILY meclizine 12.5 mg PO BID metoprolol succinate ER 25 mg PO DAILY 90 days miconazole nitrate 2% (Antifungal (miconazole)) topical mupirocin 2% 1 appl topical TID nystatin topical TID olanzapine 10 mg PO DAILY polyethylene glycol 3350 (Miralax) 17 grams PO DAILY sennosides (Natural Senna Laxative) 8.6 mg PO BEDTIME sertraline 25 mg PO DAILY terazosin 10 mg PO BEDTIME 90 days HPI HPI Inj- LT shoulder cortisone: Details: 68-year-old male who returns to the office today for a follow-up of left shoulder pain. He states he has pain in his left shoulder. He had his last injection on 03/12/23 which provided him mild relief. He would like to repeat the injection. He also mentions he is recently diagnosed with arthritis in his right hip and sciatica. [facility] Medical History COVID-19 Tubular adenoma Anxiety HTN (hypertension) Surgical History S/P angiogram of extremity Hx of colonoscopy Family History Father Hx of colon cancer, stage IV Hx of diabetes insipidus Mother Family history of high blood pressure Social History Household Members: None Are you a primary physician assistant primary care to a significant other at home: No Do you presently have visiting nurse or other home services: No Alcohol intake: current Alcohol intake frequency: holidays/special occasions only Patient Tobacco Use Status: Current everyday Tobacco user Tobacco use type: Cigarette Cigarette Packs Per Day: 0.5 Cigarettes Per Day: 10 Years Smoked: 50 +/- Second Hand Smoke Exposure: No Current occupational status: unemployed Current occupation: left handed Review of Systems Const All systems reviewed & are unremarkable except as noted in HPI and below Physical Exam Extrem Other: Left shoulder: Normal to inspection. Tenderness over the bicipital groove and along the deltoid region of the shoulder. Forward flexion to 175, external rotation to 90, internal rotation to S1. 5/5 RTC strength. Negative Rosa and cross body abduction. NVI. Office Procedures Joint Injection/Aspiration Joint Injection/Aspiration Primary Site: left shoulder Prep: site was prepped using aseptic technique, ethochloride spray was applied and injection warnings given Injected: 80 mg of, DepoMedrol, with 8 mL of, 1% plain lidocaine and in the subcromial space Approach Used: posterolateral Procedure: The patient tolerated the procedure well and there was some relief with the local anesthesia Coding 74845 - Glenohumeral/Tronchanteric Bursa/Intraarticular Procedure code (CPT) selection complete Assessment & Plan Assessment & Plan (1) Tendonitis of left rotator cuff: Code(s): M75.82 - Other shoulder lesions, left shoulder Category: Medical Plan We discussed options today, which include steroid injection. The patient did consent to move forward with the left shoulder injection, which was tolerated well. I recommended rest, ice, and elevation and OTC anti-inflammatories as needed for discomfort. If symptoms persist or worsen over the next 6-8 weeks, patient will contact the office, otherwise follow-up as needed. ? Patient Instructions: Scribed for Alex Iglesias PA-C, by Richard Scruggs medical reception, on 05/03/2024 at 12:45 PM EST.? I, Alex Iglesias PA-C, have personally reviewed and agree with the information entered by the scribe. Coding Level of Care Code Est Pt Level 3 (16617) Diagnoses Tendonitis of left rotator cuff M75.82 CPT Codes Coding - Joint 7: 86825 - Glenohumeral/Tronchanteric Bursa/Intraarticular ([id number])
== END 2024-05-03 13:37 | disposition home or self-care (01) ==
PROVIDERS: PCP Student in an Organized Health Care Education/Training Program; Visit Provider Physician Assistant
DX: M75.82 Other shoulder lesions, left shoulder (principal)
CPT/HCPCS: 20610; 99213

== ENCOUNTER → 2024-05-03 12:38 | Outpatient (BNVA) | payer OTHER, SELFPAY | PROVIDERS: PCP Student in an Organized Health Care Education/Training Program; Visit Provider Physician Assistant | DX: M25.512 Pain in left shoulder (principal); M75.82 Other shoulder lesions, left shoulder | CPT/HCPCS: 20610; 99212; J1010 ==

== ENCOUNTER 2024-08-18 08:37 | Outpatient (REF) | payer OTHER, SELFPAY ==
[2024-08-18 14:35] LABS: Alanine Aminotransferase 28 U/L (0-40); Albumin Level 4.5 g/dL (3.5-5.0); Alkaline Phosphatase 69 U/L (39-117); Anion Gap 12 (12-20); Aspartate Amino Transferase 36 U/L (5-37); Bilirubin Direct 0.2 mg/dL (0.0-0.5); Bilirubin Total 0.4 mg/dL (0.0-1.0); Blood Urea Nitrogen 20 mg/dL (9-16); Calcium 9.6 mg/dL (8.4-10.2); Carbon Dioxide 24 mmol/L (22-29); Chloride 103 mmol/L (96-108); Cholesterol 181 mg/dL (<200); Estimated Glomerular Filt Rate > 60; Glucose Random 77 mg/dL (60-115); HDL Cholesterol 48 mg/dL (>40); LDL Cholesterol Calculated 105 mg/dL (<100); Potassium 4.1 mmol/L (3.3-5.1); Sodium 135 mmol/L (135-145); Total Protein 7.1 g/dL (6.5-8.0); Triglycerides 141 mg/dL (<150)
== END 2024-08-18 08:38 | disposition home or self-care (01) ==
LOC: HO.CHCLDS 08:37
PROVIDERS: Visit Provider Student in an Organized Health Care Education/Training Program
DX: I10 Essential (primary) hypertension (principal)
CPT/HCPCS: 36415; 80048; 80061; 80076

== ENCOUNTER → 2024-08-28 08:58 | Outpatient (REF) | payer OTHER, SELFPAY ==
--- NOTE | 2024-08-28 09:02 | CA_ITS ---
Transthoracic Echocardiogram Patient (Last, First, Middle): Noe Amaya N Gender: Male Date of : 1955 Age: 69 Procedure Date: 08/28/2024 Procedure Type: Transthoracic Echocardiogram Location: OP Height: 175.26 cm Weight: 76.2 kg BSA: 1.92 m2 Heart Rate: bpm BP: 116 / 60 mmHg Tailor'S Aide: KIT Referring MD: Jody Landa [employer] TEACHEROleg Symptoms: I42.9 - Cardiomyopathy, unspecified Study Quality: Adequate ECG Rhythm: Sinus Conclusions: - The left ventricular systolic function is mildly decreased. The visually estimated ejection fraction is between 45-50%. - No obvious valvular pathology seen on this study. Findings Left Ventricle Normal left ventricular cavity size. There is normal left ventricular wall thickness. The left ventricular systolic function is mildly decreased. The visually estimated ejection fraction is between 45-50%. There is mild global hypokinesis. Diastolic function is normal for age. Right Ventricle Normal right ventricular cavity size and systolic function. Atria Both atria are normal in size. Aortic Valve There is a normal trileaflet aortic valve. There is no aortic valve stenosis. There is no aortic valve regurgitation. Mitral Valve The mitral valve appears normal. There is no mitral valve regurgitation. There is no mitral valve stenosis. Pulmonic Valve The pulmonic valve is likely normal. Tricuspid Valve Normal tricuspid valve structure. There is trace tricuspid valve regurgitation. There is no evidence of pulmonary hypertension. Great Vessels The asc aorta is normal in size. Venous The inferior vena cava is normal in size and collapses less than 50% with inspiration. Pericardium/Pleural There is no evidence of pericardial effusion. Prior Study Comparison Changes noted compared to prior study dated: 07/13/2023. Recommendations, Care & Conclusions No obvious valvular pathology seen on this study. Measurements 2D Linear Measurements IVSd: 1.38 0.6-0.9/0.6-1.0 cm LVIDd: 4.56 3.9-5.3/4.2-5.9 cm LVIDd Index: 2.38 2.4-3.2/2.2-3.1 cm/m2 LVIDs: 3.65 2.0-3.6 cm LVPWd: 1.33 0.7-1.1 cm Ao Root: 3.70 2.1-3.5 cm LA Diam: 3.70 2.7-3.8/3.0-4.0 cm LAIDs Index: 1.93 1.5-2.3 cm/m2 LV Mass: 301.00 67-162/88-224 g LV Mass Index: 156.77 43-95/49-115 g/m2 LVOT Diam: 2.10 3.0+(-)1.3 cm 2D Systolic Function EF 4C: 42.10 >55% EF 2C: 45.00 >55% EF BiP: 42.90 >55% Mitral Valve MV Pk E: 0.54 MV PK A: 0.70 MV Decel Time: 223.00 E/A: 0.80 E'Lateral: 9.57 E'Medial: 6.09 E/E' Med: 8.90 E/E' Lat: 5.60 PHT: 65.00 MVA PHT: 3.38 Decel [place]: 2.41 Aortic Valve AoV Pk Torin: 1.10 AoV Mn Torin: 0.71 AoV VTI: 0.24 AoV Pk Grad: 5.00 Aov Mn Grad: 2.00 NITISH Cont.VTI: 2.53 LVOT LVOT Pk Torin: 0.75 LVOT Mn Torin: 0.41 LVOT VTI: 0.18 LVOT Pk Grad: 2.00 LVOT Mn Grad: 1.00 LVOT Diam: 2.10 LVOT Area: 3.46 Diastolic Function MV Pk E: 0.54 MV Pk A: 0.70 E/A: 0.80 E'Medial: 6.09 E/E' Med: 8.90 E' Laterial: 9.57 E/E' Lat: 5.60 Right Ventricle TAPSE (mm): 24.00 TVS' Torin: 11.00 Tricuspid Valve TR Pk Torin: 1.91 TR Pk Grad: 15.00 RA Press: 3.00 RVSP: 18.00 Great Vessels Aorta Ao Root-2D: 3.70 2.0-3.7 cm Ao Asc: 3.30 2.1-3.4 cm Pulmonary Valve PV Pk Torin: 1.07 Peak PV Grad: 5.00 Updated in Other Vendor System with Status of Final Meliton Moreno MD electronically signed on 08/28/2024 12:42:38 PM with status of Final
== END ==
LOC: HO.CARD 08:58
PROVIDERS: PCP Student in an Organized Health Care Education/Training Program; Visit Provider Nurse Practitioner Family
DX: I42.9 Cardiomyopathy, unspecified (principal)
CPT/HCPCS: 93306

== ENCOUNTER → 2024-08-28 09:02 | Outpatient (BNV) | payer OTHER, SELFPAY | PROVIDERS: PCP Student in an Organized Health Care Education/Training Program; Visit Provider Internal Medicine | DX: I42.8 Other cardiomyopathies (principal) | CPT/HCPCS: 93306 ==

== ENCOUNTER 2024-09-12 10:25 | Outpatient (REF) | payer OTHER, SELFPAY ==
--- NOTE | ~2024-09-12 | XR_ITS ---
EXAMINATION: XR CHEST CLINICAL INFORMATION: 1 week h/o productive cough COMPARISON: 12/20/2019 TECHNIQUE: 2 views of the chest were obtained. FINDINGS: There is no gross pneumothorax. Lung volumes are low. Heart size within normal limits. No significant pleural effusion. No new focal consolidation. Multilevel degenerative changes in thoracic spine. XR/XR chest 2V IMPRESSION: No new focal consolidation. This study was presented today to September 12, 2024 for interpretation. Stat results provided at this time as requested by referring provider. Electronically signed by: Kendy Gómez MD 09/12/2024 12:22 PM PER
== END 2024-09-12 10:26 | disposition home or self-care (01) ==
LOC: HO.HHCX 10:25
PROVIDERS: Visit Provider Emergency Medicine
DX: R68.89 Other general symptoms and signs (principal)
CPT/HCPCS: 71046

== ENCOUNTER 2024-10-12 08:23 | Outpatient (REF) | payer OTHER, SELFPAY ==
--- NOTE | ~2024-10-12 | US_ITS ---
CLINICAL HISTORY: I73.9 - Peripheral vascular disease, unspecified Arterial duplex ultrasound bilateral lower extremity with ABIs Comparison: None Findings: There is bilateral lower extremity triphasic and biphasic waveforms within the common femoral, profunda femoral, superficial femoral and popliteal arteries. There is biphasic waveform within the proximal mid posterior tibial arteries with reversal of vascular flow within the distal posterior tibial arteries. The velocity measurements were mildly elevated within the proximal right superficial femoral artery 164 centimeters/second. The velocity measurements were also mildly elevated left proximal profunda femoral artery. The velocity measurements or mildly elevated within the left popliteal artery 151 centimeters/second. No evidence for vascular occlusion. The FLORES on the right is 0.93 on the left 1.05. IMPRESSION: No evidence for vascular occlusion Reversal of flow within the distal bilateral posterior tibial arteries suspicious for more distal smaller vessel significant stenoses Triphasic and biphasic waveforms of the more proximal arteries as above without visualized significant stenoses Mild elevated velocity measurements proximal right superficial femoral artery and left popliteal artery Normal left FLORES, borderline right FLORES of 0.93, indicating possible mild right lower extremity stenoses This document has been electronically signed by: Jose Luis Abad MD on 10/13/2024 07:51:38
== END 2024-10-12 08:24 | disposition home or self-care (01) ==
LOC: HO.US 08:23
PROVIDERS: PCP Student in an Organized Health Care Education/Training Program; Visit Provider Surgery Vascular Surgery
DX: I73.9 Peripheral vascular disease, unspecified (principal)
CPT/HCPCS: 93922; 93925

== ENCOUNTER → 2024-10-12 08:25 | Outpatient (BNV) | payer OTHER, SELFPAY | PROVIDERS: PCP Student in an Organized Health Care Education/Training Program; Visit Provider Radiology Diagnostic Radiology | DX: I73.9 Peripheral vascular disease, unspecified (principal) | CPT/HCPCS: 93925 ==

== ENCOUNTER → 2024-10-31 09:12 | Outpatient (BNVA) | payer OTHER, SELFPAY | PROVIDERS: PCP Student in an Organized Health Care Education/Training Program; Visit Provider Surgery Vascular Surgery | DX: I73.9 Peripheral vascular disease, unspecified (principal) | CPT/HCPCS: 99212 ==

== ENCOUNTER 2024-12-08 09:27 | Outpatient (AMB) | payer OTHER, SELFPAY ==
--- NOTE | 2024-12-08 07:47 | MHC.OFFVIS ---
Intake Visit Reasons: Smoker Allergies No Known Allergies Allergy (Verified 10/31/24 09:20) HPI HPI Smoker: Details: Initial visit for this 69yo smoker with a 25+PYH. Patient started smoking at age 17 for 52 years at 1/2ppd. . Denies marijuana use. Denies second hand smoke exposure. Denies exposure to chemicals or substances like asbestos. . Denies known family history of lung cancer. Denies personal history of cancers. Denies chest CT in last year. . Denies recent travel outside the [place]. Denies recent respiratory illness or recent hospitalization for respiratory issues. Reports history testing positive for COVID. Admits receiving COVID Vaccine. . Denies fever, chills, new/worsening cough, hemoptysis, hoarseness or dysphagia. Denies significant chest pain, significant dyspnea or unintentional weight loss. Patient Lung Cancer Screening Questionnaire reviewed with patient by provider. . Shared Decision Making Completed. Patient meets criteria. Discussed in detail with patient, the risk vs benefit of LDCT screening. Patient consents to proceed with scan. Discussed smoking cessation. [facility] Medical History (Updated 12/08/24 @ 09:42 by Betsy Uribe PA-C) Tubular adenoma of colon PAD (peripheral artery disease) Elevated PSA BPH (benign prostatic hyperplasia) Nicotine dependence, cigarettes, uncomplicated COVID-19 Anxiety HTN (hypertension) Surgical History History of atherectomy History of colonoscopy S/P cardiac cath S/P angiogram of extremity Family History Father Hx of colon cancer, stage IV Hx of diabetes insipidus Mother Family history of high blood pressure Social History (Updated 12/08/24 @ 09:43 by Betsy Uribe PA-C) Household Members: None Are you a primary medical care evaluation specialist to a significant other at home: No Do you presently have visiting nurse or other home services: No Alcohol intake: current Alcohol intake frequency: holidays/special occasions only Patient Tobacco Use Status: Current everyday Tobacco user Tobacco use type: Cigarette Cigarette Packs Per Day: 0.5 Cigarettes Per Day: 10 Years Smoked: (onset 17yo, 1/2ppd x 52yrs 25+PYH) Second Hand Smoke Exposure: No Current occupational status: unemployed Current occupation: left handed Assessment & Plan Assessment & Plan (1) Nicotine dependence, cigarettes, uncomplicated: Comment: (onset 17yo, 1/2ppd x 52yrs 25+PYH) Code(s): F17.210 - Nicotine dependence, cigarettes, uncomplicated Category: Medical Plan: - SDM visit completed today in office. - Patient meets criteria for LDCT for lung cancer screening purposes and is asymptomatic. - Smoking cessation counseling offered. Patients can always call [phone]. - Will arrange for a LDCT scan of the chest for screening purposes at [facility]. - Risks, benefits, and alternatives were discussed in detail and the patient agrees to proceed. - Risks discussed include but are not limited to: radiation exposure, anxiety during testing and while awaiting results, false negatives, false positives and possibility of additional intervention such as further imaging or surgical procedures for benign disease. - Benefits are obviously detection of lung cancer at an early stage which can lead to improved outcomes. - Discussed the importance of screening program compliance with adherence to yearly LDCT scan as scheduled - or sooner interval scans for personalized screening regimen. - Discussed follow up plan. Our office will send a letter discussing results and if needed set up phone call and office visit based on CT findings. - Patient educated on results categorization and the management decisions for suspicious findings potentially found on the screening LDCT scan. Any patient with a Lung RADS score of 3 or 4 will be reviewed by a multidisciplinary team at [facility] to form a plan of action in regards to scan findings. - If further work up is warranted for a suspicious lung finding this will be followed by the Lung Cancer Screening program in conjunction with the Thoracic Surgery Department at [facility]. - A copy of the office note and LDCT will be sent to the patient's PCP - as well as documentation on any associated further plans of care. - Incidental findings on LDCT are the PCP's responsibility. These findings are indicated with an S finding on the LDCT Assessment. A note discussing the findings will be sent to the PCP who is then responsible for further management. - All questions answered.? Coding Level of Care Code Lung Cancer Screening G0296 Diagnoses Nicotine dependence, cigarettes, uncomplicated F17.210
--- OUTSIDE RECORDS SUMMARY | 2024-12-08 10:20 | XMS_ITS | Encounter Summary ---
Author Organization [employer] Address [address] [facility] [address] [place] [address] Care Team Providers Care Swatch Clerk Name Role Phone Mima Rock MD Primary Care Provider [phone] Reason for Visit * Reason Onset Date Comments Nurse Triage 05/12/2023 Encounter Details Date Type Department Care Team (Late st Contact Info) Description 05/12/2023 Telephone [facility] [address] [place], [place] [id number] Mima Rock MD [address] [place] [address] Nurse Triage Social History Tobacco Use Types Packs/Day Years Used Date Smoking Tobacco: Every Day Cigarettes Passive Smoke Exposure: Never Alcohol Use Standard Drinks/Week Comments Yes 2 (1 standard drink = 0.6 oz pur e alcohol) Depression Answer Date Recorded Patient Health Questionnaire-2 Score 4 11/27/2022 Sex and Gender Information Value Date Recorded Sex Assigned at Male 07/27/2022 10:37 AM EDT Legal Sex Male 10:37 AM EDT Gender Identity Male 07/27/2022 10:37 AM EDT Sexual Orientation Straight 07/27/2022 10 :37 AM EDT documented as of this encounter Miscellaneous Notes * Telephone Encounter - Shaista Omer RN - 05/12/2023 3:05 PM EDT Triage call Pt reports for 3 days experiencing chills/sweats, tactile fever, fatigue, tickle in throat but, denies sore throat. Pt denies difficult breathing , but has occasional cough, headache, nasal congestion. Pt has not done home Covid test. Pt is drinking adequate liquids at 6 glasses /day. Pt requests apt tomorrow declines offer for [facility] today. Pt is advised to come to [facility] tomorrow morning opens 830am-400pm. Pt agrees with this plan. Advised to keep drinking 6- 8 glasses of liquid per day . Advised to take tylenol or ibuprofen for headache, fever. Protocol Used: Weakness (Generalized) and Fatigue (Adult) Protocol-Based Disposition: See in Office or Video Visit Today Video visit not offered Positive Triage Questions: * Moderate weakness (i.e., interferes with work, school, normal activities) and persists > 3 days * Patient wants to be seen * All higher-acuity triage questions were negative Care Advice Discussed: * Fever Medicines * Reasons To Call Back - Unable to stand or walk - Passes out - Breathing difficulty occurs - You become worse * Telephone Encounter - Lenora Gautam - 05/12/2023 2:39 PM EDT Symptoms: Weakness, Lethargic (Tired), Fever, Chills x 3 days Outcome: Schedule a same-day appointment or talk to a nurse or provider today Reason: Caller denied all higher acuity questions The caller accepted this outcome documented in this encounter Plan of Treatment Upcoming Encounters Date Type Department Care Team (Late st Contact Info) Description 03/20/2025 9:00 AM EDT Office Visit [facility] ADULT D[facility] [address] [place] [address] Polo Ford documented as of this encounter Visit Diagnoses Not on filedocumented in this encounter Care Teams Swatch Clerk Relationship Specialty Start Date End Date Mima Rock MD [address] [place] [id number] PCP - General Family Medicine 08/02/20 documented as of this encounter
--- OUTSIDE RECORDS SUMMARY | 2024-12-08 10:20 | XMS_ITS | Encounter Summary ---
Author Organization [employer] Address [address] [facility] [address] [place] [address] Care Team Providers Care Curtain Feller Blindstitch Name Role Phone Mima Rock MD Primary Care Provider [phone] Reason for Visit * Reason Comments Med Refill Encounter Details Date Type Department Care Team (Late Contact Info) Description 2023 Refill [facility] MED & PEDS [address] [place] [address] Mima Rock MD [address] [place] [address] Social History Tobacco Use Types Packs/Day Years [...] AM EDT documented as of this encounter Plan of Treatment Upcoming Encounters Date Type Department Care Team (Late st Contact Info) Description 03/20/2025 9:00 AM EDT Office Visit [facility] ADULT D[facility] [address] [place] [address] Polo Ford documented as of this encounter Visit Diagnoses Not on filedocumented in this encounter Care Teams Curtain Feller Blindstitch Relationship Specialty Start Date End [place] [address] PCP - General Family Medicine 08/02/20 documented as of this encounter
--- OUTSIDE RECORDS SUMMARY | 2024-12-08 10:21 | XMS_ITS | Encounter Summary ---
Author Organization [employer] Address [address] [facility] [address] [place] [address] Care Team Providers Care Risk Control Analyst Name Role Phone Mima Rock MD Primary Care Provider [phone] Reason for Visit * Reason Comments Med Refill Encounter Details Date Type Department Care Team (Late Contact Info) Description 03/24/2023 Refill [facility] MED [facility] PEDS [address] [place] [address] Mima Rock MD [address] [place] [address] Chronic fatigue Social History Tobacco Use Types Packs/Day Years [...] Orientation Straight 07/27/2022 10 :37 AM EDT COVID-19 Exposure Response Date Recorded In the last 10 days, have yo u been in contact with someone who was confirmed or suspected to have Coronavirus/COVID-19? No / Unsure 03/24/2023 10:12 AM EDT documented as of this encounter Plan of Treatment Upcoming Encounters Date Type Department Care Team ([facility] Contact Info) Description 03/20/2025 9:00 AM EDT Office Visit [facility] ADULT DENTAL [address] [place] [address] Polo Ford documented as of this encounter Visit Diagnoses Diagnosis Chronic fatigue Other malaise and fatigue documented in this encounter Care Teams Risk Control Analyst Relationship Specialty Start Date End Date Mima Rock MD [address] [place] [id number] PCP - General Family Medicine 08/02/20 documented as of this encounter
--- OUTSIDE RECORDS SUMMARY | 2024-12-08 10:21 | XMS_ITS | Encounter Summary ---
Author Organization [employer] Address [address] [facility] [address] [place] [address] Care Team Providers Care Forepart Laster Name Role Phone Mima Rock MD Primary Care Provider [phone] Reason for Visit * Reason Comments Med Refill Encounter Details Date Type Department Care Team ([facility] st Contact Info) Description 11/02/2023 Refill [facility]EDS [address] [place] [address] Ellie Ford MD [address] [place] [address] [employer] Social History Tobacco Use Types Packs/Day Years Used Date Smoking Tobacco: Every Day Cigarettes Passive Smoke Exposure: Never Alcohol Use Standard Drinks/Week Comments Yes 2 (1 standard drink = 0.6 oz pur e alcohol) Housing Stability Answer Date Recorded What is your housing situation today? I have housing today, but I am worried about losing housing in the future 07/12/[address] you li ve. Do you have problems with any of the following? None of the above 07/12/2023 Food Insecurity Answer Date Recorded Within the past 12 months, y ou worried that your food would run out before you got money to buy more: Sometimes True 2022 Within the past 12 months,th e food you bought just didn't last and you didn't have enough money to get more: Sometimes True 07/12/2023 Transportation Answer Date Recorded In the past 12 months, has l ack of transportation kept you from medical appts, meetings, work or from getting things needed for daily living? No 07/12/2023 Utilities Answer Date Recorded In the past 12 months, has t he electric, gas, oil or water company threatened to shut off services in your home? No 07/12/2023 Depression Answer Date Recorded Patient Health Questionnaire-2 [...] Description 03/20/2025 9:00 AM EDT Office Visit [facility] ADULT DENTAL [address] [place] [address] Polo Ford documented as of this encounter Visit Diagnoses Diagnosis [employer] Other specified erythematous condition documented in this encounter Care Teams Forepart Laster Relationship Specialty Start Date End Date Mima Rock MD [address] [place] [id number] PCP - General Family Medicine 08/02/20 documented as of this encounter
--- OUTSIDE RECORDS SUMMARY | 2024-12-08 10:21 | XMS_ITS | Clinical Summary ---
Author Organization [employer] Address [address] [facility] [address] [place] [address] Care Team Providers Care Logistics Tech Name Role Phone Mima Rock MD Primary Care Provider [phone] Allergies No known active allergies Medications nicotine (Nicoderm, Step 2) 14 MG/24HR patch apply 1 patch by transdermal route every day and wear for 16-24 hours. 1 Active nicotine (Nicoderm, Step 3) 7 MG/24HR patch apply 1 patch by transdermal route every day and wear for 16-24 hours. 1 Active nicotine polacrilex (Commit) 4 MG lozenge take 1 lozenge by oral route every 1-2 hours dissolved slowly in the mouth for 6 weeks, then 1 lozenge every 2-4 hours for 3 weeks, then 1 lozenge every 4-8 hours for 2 weeks. 1 Active acetaminophen (Tylenol 8 Hour) 650 MG ER tabletIndication s:Left shoulder pain, unspecified chronicity Take 1 tablet (650 mg) by mouth every 8 (eight) hours if needed for mild pain. 30 tablet 4 Active calcipotriene (Dovonex) 0.005 % cream Apply topically every 12 (twelve) hours. 60 g 4 Active cholecalciferol (D3-1000) 25 MCG (1000 UT) tabletIndication s:Chronic fatigue TAKE 1 TABLET (25 MCG) BY MOUTH IN THE MORNING 90 tablet 1 4 Active atorvastatin (Lipitor) 40 MG tablet Take 1 tablet (40 mg) by mouth in the morning. 30 tablet 11 4 Active metoprolol succinate XL (Toprol-XL) 25 MG 24 hr tablet 4 Active ezetimibe (Zetia) 10 MG tablet Take 10 mg by mouth in the morning. 3 Active cloNIDine (Catapres) 0.1 MG tabletIndication s:Primary hypertension TAKE 1 TABLET (0.1 MG) BY MOUTH IN THE MORNING. 90 tablet 2 4 Active hydrOXYzine HCl (Atarax) 25 MG tablet TAKE 1 TABLET BY MOUTH TWICE A DAY 180 tablet 1 4 Active tacrolimus (Protopic) 0.1 % ointmentIndicati ons:Intertrigo APPLY TO AFFECTED AREA EVERY 12 HOURS (BULK) 30 g 9 4 Active lidocaine (Lidoderm) 5 % patchIndications :Acute back pain with sciatica, right Apply 1 patch topically Once per day. Remove & discard patch within 12 hours or as directed by MD. 30 patch 1 4 Active amLODIPine (Norvasc) 5 MG tabletIndication s:Hypertension, unspecified type TAKE ONE TABLET BY MOUTH ONCE DAILY IN THE MORNING ^1R1 90 tablet 2 4 Active OLANZapine (ZyPREXA) 10 MG tablet TAKE ONE TABLET BY MOUTH EVERY MORNING ^1R1 30 tablet 4 Active docusate sodium (Colace) 100 MG capsuleIndicatio ns:Constipation, unspecified constipation type TAKE ONE CAPSULE BY MOUTH EVERY 12 HOURS ^1R1,1R4 60 capsule 4 Active meclizine (Antivert) 12.5 MG tabletIndication s:Dizziness TAKE ONE TABLET BY MOUTH EVERY 12 HOURS ^1R1,1R4 60 tablet 4 Active clopidogrel (Plavix) 75 MG tablet TAKE ONE TABLET BY MOUTH EVERY MORNING ^1R1 30 tablet 4 Active terazosin (Hytrin) 10 MG capsule TAKE ONE CAPSULE BY MOUTH AT BEDTIME ^1R4 30 capsule 4 Active melatonin 3 MG tablet TAKE ONE TABLET BY MOUTH AT BEDTIME ^1R4 30 tablet 4 Active hydroCHLOROthiaz jaylin (HYDRODiuril) 25 MG tabletIndication s:Primary hypertension TAKE ONE TABLET BY MOUTH EVERY MORNING ^1R1 30 tablet 4 Active lisinopril 40 MG tabletIndication s:Primary hypertension TAKE 1 TABLET BY MOUTH EVERY DAY 90 tablet 1 4 Active fluticasone (Flonase Allergy Relief) 50 MCG/ACT nasal spray Administer 1 spray into each nostril Once per day. Shake gently. Before first use, prime pump. After use, clean tip and replace cap. 16 g 1 4 09/12/20 25 Active Spacer/Aero-Hold ing Chambers (OptiChamber Abril) misc 1 each every 4 (four) hours if needed (asthma). 1 each 4 Active celecoxib (CeleBREX) 100 MG capsule TAKE 1 CAPSULE BY MOUTH TWICE A DAY 60 capsule 4 Active cyclobenzaprine (Flexeril) 10 MG tablet TAKE 1 TABLET BY MOUTH TWICE A DAY NEEDED FOR BACK PAIN 30 tablet 5 Active albuterol 108 (90 Base) MCG/ACT inhaler INHALE 2 PUFFS EVERY 4 (FOUR) HOURS IF NEEDED FOR WHEEZING OR SHORTNESS OF BREATH. 18 g 1 5 11/07/19 26 Active metroNIDAZOLE (Flagyl) 500 MG tablet TAKE 1 TABLET BY MOUTH MORNING OF BX 04/11/24 ALONG WITH CIPRO 4 Active finasteride (Proscar) 5 MG tablet Take 1 tablet by mouth Once per day. 4 Active Active Problems Problem Noted Date Diagnosed Date Elevated PSA 07/19/2024 Tobacco dependence 03/24/2023 PAD (peripheral artery disease) 03/24/2023 Hypertensive disorder 12/13/2020 Mood disorder 12/13/2020 Encounters Date Type Department Care Team Description 11/01/2024 8:30 AM EST Office Visit [facility] [address] [place] [address] Matri Kerns Dental caries (Primary Dx) 10/28/2024 Refill [facility] [address] [facility] [facility] [place] [address] Humberto Marie MD 10/12/2024 Orders Only [facility] External Provider, [facility] 10/06/2024 10:30 AM EST Office Visit [facility] [address] [place] [address] Marti Kerns 10/06/2024 Refill [facility] [address] [place] [address] Mima Rock MD 10/05/2024 Refill [facility] [address] [place] [phone] Ilene Goins MD 10/05/2024 Refill [facility] [address] [place] [address] Mima Rock MD 10/04/2024 Refill [facility] [address] [place] [phone] Humberto Marie MD 09/29/2024 9:00 AM EST Office Visit [facility] [address] [place] [address] Kerns Rameshcherie Ill-fitting dentures (Primary Dx) 09/18/2024 10:00 AM EST Office Visit [facility] [address] [place] [phone] Polo Ford Dental calculus (Primary Dx) 09/15/2024 Refill [facility] [address] [place] [phone] Mima Rock MD 09/14/2024 Telephone [facility] [address] [place] [phone] Polo Ford 09/12/2024 9:40 AM EST Office Visit [facility] [address] [place] [phone] Humberto Marie MD Influenza-like symptoms (Primary Dx); Tobacco dependence; Hypertension, unspecified type; Viral URI 09/09/2024 10:00 AM EST Office Visit [facility] [address] [place] [phone] Jordin Baird MD Viral URI with cough from Last 3 Months Immunizations Name Administration Dates Next Due Influenza High-dose Quadriva lent Preservative Free 09/29/2022,07/29/2022 Influenza Injectable Quadriv alant Preservative Free IIV4 MDCK 08/18/2021 Influenza injectable quadriv alent preservative free 09/22/2021,06/13/2020 Influenza, High Dose Seasona l, Preservative Free 05/26/2024 Moderna Covid-19 Vaccine 12+ 09/02/2021,01/18/20 21,12/20/2020 Pfizer Covid-19 Vaccine 12+ 07/29/2022 Pfizer Covid-19 Vaccine 12+ Bivalent 05/19/2023, 07/29/2022 Pfizer Covid-19 Vaccine 12+ tom-sucrose (Paz Cap) 01/06/2022 Pneumococcal Conjugate PCV 20 12/23/2023, 023 RSV-MAB, Unspecified 09/28/2024 Tdap 09/16/2023 Zoster, Recombinant 05/19/2024 Zoster, live 09/28/2024 Social History Tobacco Use Types Packs/Day Years Used Date Smoking Tobacco: Every Day Cigarettes Passive Smoke Exposure: Never Tobacco Cessation:Ready to Q uit: Not Asked; Counseling Given: Not Answered Alcohol Use Standard Drinks/Week Comments Yes 2 (1 standard drink = 0.6 oz pur e alcohol) Housing Stability Answer Date Recorded What is your housing situation today? I have oswaldoaristides sahu 07/12/[address] you li ve. Do you have problems with any of the following? None of the above 07/12/2024 Food Insecurity Answer Date Recorded Within the past 12 months, y ou worried that your food would run out before you got money to buy more: Never True 07/12/2024 Within the past 12 months,th e food you bought just didn't last and you didn't have enough money to get more: Never True Transportation Answer Date Recorded In the past 12 months, has l ack of transportation kept you from medical appts, meetings, work or from getting things needed for daily living? No 07/12/2024 Utilities Answer Date Recorded In the past 12 months, has t he electric, gas, oil or water company threatened to shut off services in your home? No 07/12/2024 Depression Answer Date Recorded Patient Health Questionnaire-2 Score 4 11/27/2022 Internet Access Answer Date Recorded Internet Access Q1 Yes 07/12/2024 Internet Access Q2 Not on file 07/12/2024 Sex and Gender Information Value Date Recorded Sex Assigned at Male 07/27/2022 10:37 AM EDT Legal Sex Male 10:37 AM EDT Gender Identity Male 07/27/2022 10:37 AM EDT Sexual Orientation Straight 07/27/2022 10 :37 AM EDT Last Filed Vital Signs Vital Sign Reading Time Taken Comments Blood Pressure 146/86 09/18/2024 9:46 AM EST Pulse 77 09/18/2024 9:46 AM EST Temperature 35.9 ??C (96.7 ??F) 09/12/2024 9:39 AM ES T Respiratory Rate 18 09/12/2024 9:39 AM EST Oxygen Saturation 97% 09/12/2024 9:39 AM EST Inhaled Oxygen Concentration - - Weight 80.9 kg (178 lb 6.4 oz) 09/12/2024 9:39 A M EST Height 167.6 cm (5' 6 ) 09/09/2024 9:57 AM EST Body Mass Index 28.79 09/09/2024 9:57 AM EST Plan of Treatment Upcoming Encounters Date Type Department Care Team (Late st Contact Info) Description 03/20/2025 9:00 AM EDT Office Visit [facility] [address] [place] [address] Polo Ford Health Maintenance Due Date Last Done Comments CT Colonography 1955 Colonoscopy 1955 Colorectal Cancer Screening 1955 FIT DNA/Cologuard 1955 FIT 1955 FOBT 1955 Sigmoidoscopy 1957 Alcohol/Substance Use Screening 1969 Hepatitis C Screening 1975 Depression Screening 11/28/2023 11/27/2022, 11/28/19 Zoster Vaccines (2 of 2) 11/23/2024 09/28/2024, 08/2 11/2023 Dental Oral Exam 03/20/2025 09/18/2024, , 09/14/2023 Dental Prophylaxis 03/20/2025 09/18/2024, 0 03/16/2024, 09/14/2023, Additional history exists SDOH Screening 07/12/2025 07/12/2024 Dental X-Ray: Bitewings 09/19/2025 09/18/2024, 09/14 Tobacco Screening 11/01/2025 11/01/2024 Dental X-Ray: Full Mouth 09/19/2027 09/18/2024 Lipid Panel 08/18/2029 08/18/2024, 08/28, 07/13/2023, Additional history exists RSV Patients and Patients Aged 60 years or older (1 - 1-dose 75+ series) 2032 DTaP/Tdap/Td Vaccines (2 - Td or Tdap) 09/16/2033 09/16/2023 Pneumococcal Vaccine: 50+ Years Completed 12/23/2023, 09/16/2023 COVID-19 Vaccine Completed 05/26/2024, , 07/14/2023, Additional history exists Influenza Vaccine Completed 05/26/2024, , 09/29/2022, Additional history exists RSV under 20 months Aged Out 09/28/2024 No longe r eligible based on patient's age to complete this topic HIB Vaccines Aged Out No longer eligi ble based on patient's age to complete this topic HPV Vaccines Aged Out No longer eligi ble based on patient's age to complete this topic Hepatitis A Vaccines Aged Out No long er eligible based on patient's age to complete this topic Hepatitis B Vaccines Aged Out No long er eligible based on patient's age to complete this topic IPV Vaccines Aged Out No longer eligi ble based on patient's age to complete this topic Meningococcal Vaccine Aged Out No shanda terence eligible based on patient's age to complete this topic Rotavirus Vaccines Aged Out No longer eligible based on patient's age to complete this topic Procedures Procedure Name Priority Date/Time Associated Diagnosis Comments CASE PRESENTATION, DETAILED AND EXTENSIVE TREATMENT PLANNING Routine 11/01/2024 8:30 AM EST 28 DO RESIN-BASED COMPOSITE - 2 SURF, POSTERIOR Routine 11/01/2024 8:30 AM EST VASC US LOWER EXTREMITY ARTERIAL DUPLEX BILATERAL WITH SAHARA Routine 10/13/2024 7:51 AM EST CASE PRESENTATION, DETAILED AND EXTENSIVE TREATMENT PLANNING Routine 10/06/2024 10:30 AM EST 14 DO RESIN-BASED COMPOSITE - 2 SURF, POSTERIOR Routine 10/06/2024 10:30 AM EST 12 DO RESIN-BASED COMPOSITE - 2 SURF, POSTERIOR Routine 10/06/2024 10:30 AM EST CASE PRESENTATION, DETAILED AND EXTENSIVE TREATMENT PLANNING Routine 09/29/2024 9:00 AM EST ADJUST PARTIAL DENTURE - MAXILLARY Routine 09/29/2024 9:00 AM EST COMPREHENSIVE PERIODONTAL EVALUATION - NEW OR ESTABLISHED PATIENT Routine 09/18/2024 10:00 AM EST PERIODIC ORAL EVALUATION - ESTABLISHED PATIENT Routine 09/18/2024 10:00 AM EST CASE PRESENTATION, DETAILED AND EXTENSIVE TREATMENT PLANNING Routine 09/18/2024 10:00 AM EST ORAL HYGIENE INSTRUCTIONS Routine 09/18/2024 10:00 AM EST INTRAORAL - COMPLETE SERIES OF RADIOGRAPHIC IMAGES Routine 09/18/2024 10:00 AM EST PROPHYLAXIS - ADULT Routine 09/18/2024 1 0:00 AM EST XR CHEST 2 VIEWS Routine 09/12/2024 10:2 5 AM EST Influenza-like symptoms POCT INFLUENZA B (ID NOW RAPID MOLECULAR) Routine 09/12/2024 9:54 AM EST Viral URI POCT INFLUENZA A (ID NOW RAPID MOLECULAR) Routine 09/12/2024 9:54 AM EST Viral URI POCT RAPID COVID ANTIGEN Routine 09/12/2024 9:54 AM EST Viral URI POCT INFLUENZA A Routine 09/09/2024 10:1 2 AM EST Viral URI with cough POCT INFLUENZA B Routine 09/09/2024 10:1 2 AM EST Viral URI with cough POCT RAPID COVID ANTIGEN Routine 09/09/2024 10:12 AM EST Viral URI with cough LIPID PANEL, STANDARD Routine 08/18/2024 8:38 AM EST Primary hypertension from Last 3 Months or Most Recently Relevant to Health Maintenance Results * VASC US Lower Extremity Arterial Duplex Bilateral With Sahara (10/13/2024 7:51 AM EST) 10/13/2024 7:51 AM EST Narrative [facility] - 10/13/2024 7:52 AM EST ? [facility] ?[address] ?[place] [address] ? Ultrasound Report ? Signed ? Patient: Jose Luis,Noe N ?MR#: [id number] ?? 164 ? : 1955 ?Acct:[id number] ? Age/Sex: 69 / M ?ADM Date: 10/12/24 ? Loc: HO.US ? Attending Dr: Joseph Mcclain MD ? Ordering Physician: Joseph Mcclain MD ?? Date of Service: 10/12/24 ?? Procedure(s): US arterial duplex BI w/ SAHARA ?? Accession Number(s): [id number] ? cc: Joseph Mcclain MD; Mima Rock MD ? CLINICAL HISTORY: I73.9 - Peripheral vascular disease, unspecified ? Arterial duplex ultrasound bilateral lower extremity with ABIs ? Comparison: None ? Findings: ?? There is bilateral lower extremity triphasic and biphasic waveforms within ?? the common femoral, profunda femoral, superficial femoral and popliteal ?? arteries. There is biphasic waveform within the proximal mid posterior ?? tibial arteries with reversal of vascular flow within the distal posterior ?? tibial arteries. ?? The velocity measurements were mildly elevated within the proximal right ?? superficial femoral artery 164 centimeters/second. The velocity ?? measurements were also mildly elevated left proximal profunda femoral ?? artery. The velocity measurements or mildly elevated within the left ?? popliteal artery 151 centimeters/second. No evidence for vascular ?? occlusion. ?? The SAHARA on the right is 0.93 on the left 1.05. ? IMPRESSION: ?? No evidence for vascular occlusion ?? Reversal of flow within the distal bilateral posterior tibial arteries ?? suspicious for more distal smaller vessel significant stenoses ?? Triphasic and biphasic waveforms of the more proximal arteries as above ?? without visualized significant stenoses ?? Mild elevated velocity measurements proximal right superficial femoral ?? artery and left popliteal artery ?? Normal left SAHARA, borderline right SAHARA of 0.93, indicating possible mild ?? right lower extremity stenoses ? This document has been electronically signed by: Jose Luis Abad MD on ?? 10/13/2024 07:51:38 ? Dictated By: ?Jose Luis Abad MD ? Signed By: ?<Electronically signed by Jose Luis Abad MD in OV> ? 10/13/24 0752 ? DD/ 0751 ? TD/TT: 10/13/24 0751 ? Swimming Pool Cleaner: ? Procedure Note Donotuseinterpreter, Image - 10/13/[address] [address] Ultrasound Report Signed Patient: Noe Amaya NMR#: [id number] 164 : 7Acct:[id number] Age/Sex: 69 / MADM Date: 10/12/24 Loc: HO.US Attending Dr: Joseph Mcclain MD Ordering Physician: Joseph Mcclain MD Date of Service: 10/12/24 Procedure(s): US arterial duplex BI w/ SAHARA Accession Number(s): [id number] cc: Joseph Mcclain MD; Mima Rock MD CLINICAL HISTORY: I73.9 - Peripheral vascular disease, unspecified Arterial duplex ultrasound bilateral lower extremity with ABIs Comparison: None Findings: There is bilateral lower extremity triphasic and biphasic waveforms within the common femoral, profunda femoral, superficial femoral and popliteal arteries. There is biphasic waveform within the proximal mid posterior tibial arteries with reversal of vascular flow within the distal posterior tibial arteries. The velocity measurements were mildly elevated within the proximal right superficial femoral artery 164 centimeters/second. The velocity measurements were also mildly elevated left proximal profunda femoral artery. The velocity measurements or mildly elevated within the left popliteal artery 151 centimeters/second. No evidence for vascular occlusion. The SAHARA on the right is 0.93 on the left 1.05. IMPRESSION: No evidence for vascular occlusion Reversal of flow within the distal bilateral posterior tibial arteries suspicious for more distal smaller vessel significant stenoses Triphasic and biphasic waveforms of the more proximal arteries as above without visualized significant stenoses Mild elevated velocity measurements proximal right superficial femoral artery and left popliteal artery Normal left SAHARA, borderline right SAHARA of 0.93, indicating possible mild right lower extremity stenoses This document has been electronically signed by: Jose Luis Abad MD on 10/13/2024 07:51:38 Dictated By: Jose Luis Abad MD Signed By: <Electronically signed by Jose Luis Abad MD in OV> 10/13/24 0752 DD/ 0 TD/TT: 10/13/24750 Swimming Pool Cleaner: us [facility] External Provider CV VASC ULAR PROCEDURES Edited Result - Final [facility] [address] [place] [address] * XR Chest 2 Views (09/12/2024 10:25 AM EST) Anatomical Region Laterality Modality Chest Radiographic Stacy ging 09/12/2024 10:2 5 AM EST Narrative 09/12/2024 12:25 PM EST ?[facility] ?[address] ?[place] [address] ?XRay Report ? Signed ? Patient: Noe Amaya ?MR#: [id number] ?? 164 ? : 1955 ?Acct:[id number] ? Age/Sex: 69 / M ?ADM Date: 09/12/24 ? Loc: HO.HHCX ? Attending Dr: Humberto Marie MD ? Ordering Physician: HUMBERTO MARIE MD ?? Date of Service: 09/12/24 ?? Procedure(s): XR chest 2V ?? Accession Number(s): [id number] ? cc: HUMBERTO MARIE MD ? EXAMINATION: ?? XR CHEST ? CLINICAL INFORMATION: ?? 1 week h/o productive cough ? COMPARISON: ?? 12/20/2019 ? TECHNIQUE: ?? 2 views of the chest were obtained. ? FINDINGS: ?? There is no gross pneumothorax. Lung volumes are low. ? Heart size within normal limits. ? No significant pleural effusion. ? No new focal consolidation. ? Multilevel degenerative changes in thoracic spine. ? XR/XR chest 2V ?? IMPRESSION: ?? No new focal consolidation. ? This study was presented today to September 12, 2024 for interpretation. ?? Stat results provided at this time as requested by referring provider. ? Electronically signed by: ??Kendy Gómez MD ??09/12/2024 12:22 PM EST ?? RP ? Dictated By: ?Kendy Gómez MD ? Signed By: ?<Electronically signed by Kendy Gómez MD in OV> ? 09/12/24 1222 ? DD/ 1025 ? TD/TT: 09/12/24 1050 ? Swimming Pool Cleaner: ? Procedure Note Donotuseinterpreter, Image - 09/12/2024 [facility] [address] [place] [address] XRay Report Signed Patient: Noe Amaya NMR#: [id number] 164 : 7Acct:[id number] Age/Sex: 69 / MADM Date: 09/12/24 [facility]: Humberto Marie MD Ordering Physician: HUMBERTO MARIE MD Date of Service: 09/12/24 Procedure(s): XR chest 2V Accession Number(s): [id number] cc: HUMBERTO MARIE MD EXAMINATION: XR CHEST CLINICAL INFORMATION: 1 week h/o productive cough COMPARISON: 12/20/2019 TECHNIQUE: 2 views of the chest were obtained. FINDINGS: There is no gross pneumothorax. Lung volumes are low. Heart size within normal limits. No significant pleural effusion. No new focal consolidation. Multilevel degenerative changes in thoracic spine. XR/XR chest 2V IMPRESSION: No new focal consolidation. This study was presented today to September 12, 2024 for interpretation. Stat results provided at this time as requested by referring provider. Electronically signed by: Kendy Gómez MD 09/12/2024 12:22 PM EST Dictated By: Kendy Gómez MD Signed By: <Electronically signed by Kendy Gómez MD in OV> 09/12/24 1222 DD/ 1025 TD/TT: 09/12/24 1050 Swimming Pool Cleaner: Humberto Marie MD IMG XR PROCEDURES Final Result * Influenza B (ID NOW Rapid Molecular) (09/12/2024 9:54 AM EST) Influenza B Negative Negative, Indeterminate [facility] Swab 09/12/2024 9:54 AM EST Humberto Marie MD POINT OF CARE TEST ENTER/EDIT OR DERABLES Final Result [facility] [address] [place] [address] [phone] * Influenza A (ID NOW Rapid Molecular) (09/12/2024 9:54 AM EST) Pathologist [facility] Influenza A Negative Negative, Indeterminate [facility] Swab 09/12/2024 9:54 AM EST Humberto Marie MD POINT OF CARE TEST ENTER/EDIT OR DERABLES Final Result [facility] [address] [place] [phone] * POCT Rapid COVID Ag (09/12/2024 9:54 AM EST) Only the most recent of2 resultswithin the time period is included. [facility] Rapid COVID Ag Negative [facility] Swab 09/12/2024 9:54 AM EST Humberto Marie MD POINT OF CARE TEST ENTER/EDIT OR DERABLES Final Result Performing Organization Address City/[facility]/ZIP Co de Phone Number [facility] [address] [place] [phone] * POCT Influenza B manually resulted (09/09/2024 10:12 AM EST) [facility] Rapid Influenza B Ag Negative Negative, Indeterminate QC Media Lot # [id number] Lot# Expiration Date Swab 09/09/2024 10:1 2 AM EST us Jordin Baird MD POINT OF CARE TEST ENTER/EDIT OR DERABLES Final Result * POCT Influenza A manually resulted (09/09/2024 10:12 AM EST) [facility] Rapid Influenza A Ag Negative Negative, Indeterminate QC Media Lot # [id number] Lot# Expiration Date Swab Nasopharyngeal structure / Unknown 09/09/2024 10:12 AM EST us Jordin Baird MD POINT OF CARE TEST ENTER/EDIT OR DERABLES Final Result * (ABNORMAL) Lipid Panel, Standard (08/18/2024 8:38 AM EST) Triglycerides 141 <150 mg/dL [facility] Comment:Desirable Triglyceri de: less than 150 mg/dLBorderline High Triglyceride 150-199 mg/dLHigh Triglyceride: 200-499 mg/dLVery High Triglyceride: greater than or equal to 5OO mg/dL Cholesterol 181 <200 mg/dL [facility] Comment:Desirable Cholestero l: less than 200 mg/dLBorderline High Cholesterol: 200-239 mg/dLHigh Cholesterol: greater than 239 mg/dL LDL Cholesterol Calculated 105(H) <100 mg/dL [facility] Comment:Desirable LDL: less than 100 mg/dLNear Optimal/Above Optimal LDL: 110- 129 mg/dLBorderline High LDL: 130-159 mg/dLHigh LDL: 160-189 mg/dLVery High LDL: greater than or equal to 190 mg/dL HDL Cholesterol 48 >40 mg/dL [facility] Comment:Desirable HDL: great er than 40 mg/dL Note: This HDL assay may give artificially low results in patients with liver disease. Blood Venous blood specimen / Unknown 08/18/2024 8:38 AM EST 08/18/2024 2:10 PM EST us Mima Rock MD LAB BLOOD ORDERABLES Final Resul t [facility] [address] [place] [address] [phone] from Last 3 Months or Most Recently Relevant to Health Maintenance Insurance - [employer] * Guarantor: Noe Amaya Account Type Relation to Patient Date of Phone Billing Address Dental Self 1955 [address] [facility] [address] [place] [address] D[facility]AL [facility] Care Teams Logistics Tech Relationship Specialty Start Date End Date Mima Rock MD [address] [place] [phone] PCP - General Family Medicine 08/02/20
--- OUTSIDE RECORDS SUMMARY | 2024-12-08 10:21 | XMS_ITS | Encounter Summary ---
Author Organization [employer] Address 75 [facility] 7t [place] [address] Care Team Providers Care Discharge Coordinator Name Role Phone Mima Rock MD Primary Care Provider [phone] Reason for Visit * Reason Onset Date Comments Medication Question 10/01/2023 Encounter Details Date Type Department Care Team ([facility] st Contact Info) Description 10/01/2023 Telephone C [facility] [address] [place], [place] [phone] Mima Rock MD 505 [place] [address] Medication Question Social History Tobacco Use Types Packs/Day Years [...] encounter Miscellaneous Notes * Telephone Encounter - Carlos Manuelmateusz Latham - 10/01/2023 10:52 AM EST Tc from [facility] Calle requesting medication for pt. Metoprolol 25 mg, Atorvastatin, and Penicillin0.4 mg. Script Girl unable to confirm Penicillin if any questions please contact pharmacy at [phone]. documented in this encounter Plan of Treatment Upcoming Encounters Date Type Department Care Team (Late st Contact Info) Description 03/20/2025 9:00 AM EDT Office Visit [facility] ADULT DENTAL [address] [place] [address] Polo Ford documented as of this encounter Visit Diagnoses Not on filedocumented in this encounter Care Teams Discharge Coordinator Relationship Specialty Start Date End Date Mima Rock MD [address] [place] [address] PCP - General Family Medicine 08/02/20 documented as of this encounter
--- OUTSIDE RECORDS SUMMARY | 2024-12-08 10:21 | XMS_ITS | Encounter Summary ---
Author Organization [employer] Address 75 [facility] 7t [place] [address] Care Team Providers Care Teacher'S Assistant Name Role Phone Mima Rock MD Primary Care Provider [phone] Encounter Details Date Type Department Care Team (Latest Contact Info) Description 05/18/2022 Abstract [facility] CONVERSIONS Dental, Provider, DDS Social History Tobacco Use Types Packs/Day Years Used Date Smoking Tobacco: Never Assessed Sex and Gender Information Value Date Recorded Sex Assigned at Male 07/27/2022 10:37 AM EDT Legal Sex Male 10:37 AM EDT Gender Identity Male 07/27/2022 10:37 AM EDT Sexual Orientation Straight 07/27/2022 10 :37 AM EDT documented as of this encounter Plan of Treatment Upcoming Encounters Date Type Department Care Team (Late st Contact Info) Description 03/20/2025 9:00 AM EDT Office Visit [facility] ADULT DENTAL [address] [place] [address] Polo Ford documented as of this encounter Visit Diagnoses Not on filedocumented in this encounter Care Teams Teacher'S Assistant Relationship Specialty Start Date End Date Mima Rock MD [address] [place] [address] PCP - General Family Medicine 08/02/20 documented as of this encounter
--- OUTSIDE RECORDS SUMMARY | 2024-12-08 10:21 | XMS_ITS | Encounter Summary ---
Author Organization [employer] Address 75 [facility] 7t [place] [address] Care Team Providers Care Spanish Tutor Name Role Phone Mima Rock MD Primary Care Provider [phone] Encounter Details Date Type Department Care Team (Late st Contact Info) Description 08/30/2022 Orders Only [facility] MEDICINE [address] [place], [place] [phone] Norma Nevarez MD [address] [place] [phone] Peripheral artery disease (CMS/HCC) (Primary Dx) Social History Tobacco Use Types Packs/Day Years [...] Description 03/20/2025 9:00 AM EDT Office Visit [facility] ADULT DENTAL [address] [place] [address] Polo Ford documented as of this encounter Visit Diagnoses Diagnosis Peripheral artery disease (CMS/HCC)- Primary documented in this encounter Care Teams Spanish Tutor Relationship Specialty Start Date End Date Mima Rock MD [address] [place] [address] [id number] PCP - General Family Medicine 08/02/20 documented as of this encounter
--- OUTSIDE RECORDS SUMMARY | 2024-12-08 10:21 | XMS_ITS | Encounter Summary ---
Author Organization [employer] Address 75 [facility] 7t [place] [address] Care Team Providers Care Manager Of Broadcast Content Name Role Phone Mima Rock MD Primary Care Provider [phone] Reason for Visit * Reason Onset Date Comments Appointment Request 09/01/2023 Encounter Details Date Type Department Care Team ([facility] st Contact Info) Description 09/01/2023 Telephone [facility] CH[facility] MED & PEDS 505 [place] [address] Mima Rock MD 505 [place] [address] Appointment Request Social History Tobacco Use Types Packs/Day Years [...] encounter Miscellaneous Notes * Telephone Encounter - Aleyda Gino - 09/01/2023 10:56 AM EST Tc from pt requesting an appointment with derm due to outbreak in groin area. Please contact pt at [phone] documented in this encounter Plan of Treatment Upcoming Encounters Date Type Department Care Team (Late st Contact Info) Description 03/20/2025 9:00 AM EDT Office Visit [facility] ADULT D[facility] [address] [place] [address] Polo Ford documented as of this encounter Visit Diagnoses Not on filedocumented in this encounter Care Teams Manager Of Broadcast Content Relationship Specialty Start Date End Date Mima Rock MD [address] [place] [address] PCP - General Family Medicine 08/02/20 documented as of this encounter
--- OUTSIDE RECORDS SUMMARY | 2024-12-08 10:21 | XMS_ITS | Encounter Summary ---
Author Organization [employer] Address [address] [facility] 7t [place] [address] Care Team Providers Care Floor Care Technician Name Role Phone Mima Rock MD Primary Care Provider [phone] Reason for Visit * Reason Onset Date Comments Medication Question 01/28/2023 Encounter Details Date Type Department Care Team ([facility] st Contact Info) Description 01/28/2023 Telephone C [facility] [address] [place], [place] [phone] Mima Rock MD 505 [place] [address] Medication Question Social History Tobacco Use Types [...] suspected to have Coronavirus/COVID-19? No / Unsure 01/18/2023 9:44 AM EDT documented as of this encounter Miscellaneous Notes * Telephone Encounter - Danette Crump - 01/28/2023 1:48 PM EDT Tc from pt requesting for medication tacrolimus (Protopic) 0.1 % ointment to be resent to a different pharmacy [id number] [place] - [address] [facility] documented in this encounter Plan of Treatment Upcoming Encounters Date Type Department Care Team (Late st Contact Info) Description 03/20/2025 9:00 AM EDT Office Visit [facility] ADULT DENTAL [address] [place] [address] Polo Ford documented as of this encounter Visit Diagnoses Diagnosis Intertrigo Other specified erythematous condition documented in this encounter Care Teams Floor Care Technician Relationship Specialty Start Date End Date Mima Rock MD [address] [place] [address] PCP - General Family Medicine 08/02/20 documented as of this encounter
--- OUTSIDE RECORDS SUMMARY | 2024-12-08 10:21 | XMS_ITS | Encounter Summary ---
Author Organization [employer] Address 75 [facility] 7t [place] [address] Care Team Providers Care Corsage Maker Name Role Phone Mima Rock MD Primary Care Provider [phone] Reason for Visit * Reason Comments Med Refill Encounter Details Date Type Department Care Team ([facility] st Contact Info) Description 10/05/2024 Refill [facility] MED & PEDS [address] [place], [place] [phone] Mima Rock MD 505 [place] [address] Social History Tobacco Use Types Packs/Day Years Used Date Smoking Tobacco: Every Day Cigarettes Passive Smoke Exposure: Never Alcohol Use Standard Drinks/Week Comments Yes 2 (1 standard drink = 0.6 oz pur e alcohol) Housing Stability Answer Date Recorded What is your housing situation today? I have oswaldo sahu 07/12/[address] you [...] t he electric, gas, oil or water [employer] threatened to shut off services in your [...] Description 03/20/2025 9:00 AM EDT Office Visit [facility] ADULT DENTAL [address] [place] [address] Polo Ford documented as of this encounter Visit Diagnoses Not on filedocumented in this encounter Care Teams Corsage Maker Relationship Specialty Start Date End Date Mima Rock MD [address] [place] [address] PCP - General Family Medicine 08/02/20 documented as of this encounter
--- OUTSIDE RECORDS SUMMARY | 2024-12-08 10:21 | XMS_ITS | Encounter Summary ---
Author Organization [employer] Address [address] [facility] [address] 7t [place] [address] Care Team Providers Care Banking Representative Name Role Phone Mima Rock MD Primary Care Provider [phone] Reason for Visit * Reason Comments Med Refill Encounter Details Date Type Department Care Team ([facility] st Contact Info) Description 10/05/2024 Refill [facility] [address] [place] [address] Ilene Goins MD [address] [place], [place] [phone] Social History Tobacco Use Types Packs/Day Years [...] the past 12 months, has t he [employer], [employer], oil or water company threatened to shut [...] Description 03/20/2025 9:00 AM EDT Office Visit [facility] ADULT DENTAL [address] [place] [address] Polo Ford documented as of this encounter Visit Diagnoses Not on filedocumented in this encounter Care Teams Banking Representative Relationship Specialty Start Date End Date Mima Rock MD [address] [place] [address] PCP - General Family Medicine 08/02/20 documented as of this encounter
--- OUTSIDE RECORDS SUMMARY | 2024-12-08 10:21 | XMS_ITS | Encounter Summary ---
Author Organization [employer] Address 75 [facility] 7t [place] [address] Care Team Providers Care Trouble Shooting Mechanic Name Role Phone Mima Rock MD Primary Care Provider [phone] Reason for Visit * Reason Comments Med Refill Encounter Details Date Type Department Care Team ([facility] st Contact Info) Description 11/22/2023 Refill [facility] CHC MED & PEDS 505 [place] [address] Ellie Ford MD 505 [place] [address] Intertrigo Social History Tobacco Use Types Packs/Day [...] Description 03/20/2025 9:00 AM EDT Office Visit [facility] ADULT DENTAL [address] [place] [address] Polo Ford documented as of this encounter Visit Diagnoses Diagnosis Intertrigo Other specified erythematous condition documented in this encounter Care Teams Trouble Shooting Mechanic Relationship Specialty Start Date End Date Mima Rock MD [address] [place] [address] PCP - General Family Medicine 08/02/20 documented as of this encounter
--- OUTSIDE RECORDS SUMMARY | 2024-12-08 10:21 | XMS_ITS | Encounter Summary ---
Author Organization [employer] Address 75 [facility] 7t [place] [address] Care Team Providers Care Employment Services Director Name Role Phone Mima Rock MD Primary Care Provider [phone] Encounter Details Date Type Department Care Team (Late st Contact Info) Description 08/31/2022 Orders Only [facility] MEDICINE 230 [place] [address] Mima Rock MD 505 [place] [address] Claudication of both lower extremities (CMS/HCC) (Primary Dx) Social History Tobacco Use [...] Description 03/20/2025 9:00 AM EDT Office Visit [facility] CHC ADULT DENTAL [address] [place] [address] Polo Ford documented as of this encounter Visit Diagnoses Diagnosis Claudication of both lower extremities (CMS/HCC)- Primary documented in this encounter Care Teams Employment Services Director Relationship Specialty Start Date End Date Mima Rock MD [address] [place] [address] PCP - General Family Medicine 08/02/20 documented as of this encounter
--- OUTSIDE RECORDS SUMMARY | 2024-12-08 10:21 | XMS_ITS | Encounter Summary ---
Author Organization [employer] Address 75 [facility] 7t [place] [address] Care Team Providers Care Helmet Coverer Name Role Phone Mima Rock MD Primary Care Provider [phone] Reason for Visit * Reason Onset Date Comments Medication Question 10/01/2023 Encounter Details Date Type Department Care Team ([facility] st Contact Info) Description 10/01/2023 Telephone C [facility] [address] [place], [place] [phone] Mima Rock MD 505 [place] [address] Medication Question Social History Tobacco Use Types [...] encounter Miscellaneous Notes * Telephone Encounter - Radha Castañeda RN - 10/05/2023 10:06 AM EST Noted. * Telephone Encounter - Mima Rock MD - 10/05/2023 9:54 AM EST Called and left a message to call me back to my direct number * Telephone Encounter - Arely Kimball - 10/04/2023 2:56 PM EST TC from Mitzi with [facility] requesting a call back in regards message from 10/01 11:39. To contact Mitzi at [phone] Rock * Telephone Encounter - Radha Castañeda RN - 10/04/2023 11:27 AM EST Placed call to pt and did med rec over the phone, pt confirmed he is taking ASA 81mg daily, hydroxyzine he takes once daily, pt states is not on Simvastatin and is on Atorvastatin 40mg, and Plavix and on the terazosin for his BPH. Please advise if you would like atorvastatin queued and if pt can still take ASA being on Plavix. * Telephone Encounter - Mima Rock MD - 10/04/2023 9:54 AM EST Pt needs a nurse visit to clarify all meds * Telephone Encounter - Radha Castañeda RN - 10/01/2023 2:55 PM EST Please review message below and advise, ASA 81mg was sent with one dose, hydroxizine- if pt should be taking it BID as prior rx was for once a day, is pt now on simvastatin or stay on atorvastatin, should pt be on hytrin?, and they are requesting refill on Metoprolol?, and to be aware of interaction between ASA and plavix. Please advise on these questions pharmacy has and if you would like me to queue any corrected meds? * Telephone Encounter - Luan Weston - 10/01/2023 11:29 AM EST Tc from [employer] requesting a call in regards to some questions for some medications that need Clarification aspirin 81 MG EC tablet Wants to verify Quantity if it is correct? hydrOXYzine HCl (Atarax) 25 MG tablet Wants to verify the times being taken due to old med list stating medication must administered oncea day. 3. simvastatin (Zocor) 5 MG tablet wants to verify if their was a switch in medications due to patient taking Atorvastin before. 4. terazosin (Hytrin) 10 MG capsule pt is on Another medication that is not on med list just want Clarify. 5. aspirin 81 MG EC tablet and clopidogrel (Plavix) 75 MG tablet just wants to Clarify if pt shouldbe on both medications due to the medications doing the same thing. Please contact [phone] documented in this encounter Plan of Treatment Upcoming Encounters Date Type Department Care Team (Late st Contact Info) Description 03/20/2025 9:00 AM EDT Office Visit [facility] ADULT D[facility] [address] [place] [address] Polo Ford documented as of this encounter Visit Diagnoses Not on filedocumented in this encounter Care Teams Helmet Coverer Relationship Specialty Start Date End Date Mima Rock MD [address] [place] [address] PCP - General Family Medicine 08/02/20 documented as of this encounter
--- OUTSIDE RECORDS SUMMARY | 2024-12-08 10:21 | XMS_ITS | Encounter Summary ---
Author Organization [employer] Address 75 [facility] 7t [place] [address] Care Team Providers Care Wire Mesh Gate Assembler Name Role Phone Mima Rock MD Primary Care Provider Reason for Visit * Reason Comments Med Change Request Encounter Details Date Type Department Care Team ([facility] st Contact Info) Description 10/04/2024 Refill [facility] [address] [place], [place] [phone] Humberto Mooney MD [address] [place], [place] [phone] Social History Tobacco Use Types Packs/Day Years [...] Description 03/20/2025 9:00 AM EDT Office Visit [facility] CHC ADULT DENTAL [address] [place] [address] Polo Ford documented as of this encounter Visit Diagnoses Not on filedocumented in this encounter Care Teams Wire Mesh Gate Assembler Relationship Specialty Start Date End Date Mima Rock MD [address] [place] [address] PCP - General Family Medicine 08/02/20 documented as of this encounter
== END 2024-12-08 10:43 | disposition home or self-care (01) ==
LOC: HO.HPS 09:28
PROVIDERS: PCP Student in an Organized Health Care Education/Training Program; Visit Provider Physician Assistant Medical
DX: F17.210 Nicotine dependence, cigarettes, uncomplicated (principal)
CPT/HCPCS: G0296

== ENCOUNTER 2024-12-08 09:44 | Outpatient (REF) | payer OTHER, SELFPAY ==
--- NOTE | ~2024-12-08 | CT_ITS ---
EXAMINATION: CT LUNG SCREENING HISTORY: Smoking history TECHNIQUE: Low dose axial images were obtained from the sternal notch to upper abdomen without IV contrast per standard departmental protocol. Sagittal and coronal reformatted images were also obtained and reviewed. One or more of the following techniques was used for dose reduction: Automated exposure control, adjustment of the mA and/or kV according to patient size, use of iterative reconstruction technique. DLP: 52 mGy-cm COMPARISON: Correlation is made with PA and lateral views of the chest dated 09/12/2024. FINDINGS: Lung nodules: There is a 5 mm nodule in the medial right upper lobe (series 4, image 37). There is a 2 mm nodule in the superior segment of the right lower lobe (series 4, image 61). A 4 mm linear nodule is seen in the right middle lobe (series 4, image 93). There is a 2 mm nodule in the left upper lobe (series 4, image 72). There is a punctate nodule at the left lung base (series 4, image 108). Emphysema: none Coronary Calcification: moderate Aortic Arch Calcification: severe Potentially Significant Incidentals : none Additional Chest Findings: There is no pleural or pericardial effusion. No mediastinal or axillary lymphadenopathy is identified. Visualized upper abdomen: The visualized portions of the liver, spleen, and adrenals have an unremarkable unenhanced appearance. CT/CT lung screening IMPRESSION: No suspicious pulmonary nodules are identified. Severe coronary arterial calcification. LUNG-RADS ASSESSMENT: Lung-RADS 2: Benign MANAGEMENT: Continue annual screening with LDCT in 12 months Category S: N/A Electronically signed by: Jose Luis Cat MD 12/08/2024 10:59 AM EDT
--- OUTSIDE RECORDS SUMMARY | 2024-12-08 10:44 | XMS_ITS | Encounter Summary ---
Author Organization [facility] [employer] Address [address] [facility] 7t [place] [address] Care Team Providers Care Head Buyer Tobacco Name Role Phone Mima Rock MD Primary Care Provider [phone] Reason for Visit * Reason Comments Med Refill Encounter Details Date Type Department Care Team ([facility] st Contact Info) Description 11/02/2023 Refill [facility] MED & PEDS [address] [place] [address] Ellie Ford MD 505 [place] [address] Intertrigo Social History Tobacco Use Types Packs/Day [...] Description 03/20/2025 9:00 AM EDT Office Visit [facility] ADULT DENTAL [address] [place] [address] Polo Ford documented as of this encounter Visit Diagnoses Diagnosis Intertrigo Other specified erythematous condition documented in this encounter Care Teams Head Buyer Tobacco Relationship Specialty Start Date End Date Mima Rock MD [address] [place] [address] PCP - General Family Medicine 08/02/20 documented as of this encounter
--- OUTSIDE RECORDS SUMMARY | 2024-12-08 10:44 | XMS_ITS | Clinical Summary ---
Author Organization [employer] Address 75 [facility] 7t [place] [address] Care Team Providers Care Master Esthetician Name Role Phone Mima Rock MD Primary Care Provider [phone] Allergies No known active allergies Medications nicotine [...] Description 11/01/2024 8:30 AM EST Office Visit [facility] [address] [place] [address] Marti Kerns Dental caries (Primary Dx) 10/28/2024 Refill [facility] [address] [facility] [place] [address] Humberto Marie MD 10/12/2024 Orders Only [facility] External Provider, [facility] 10/06/2024 10:30 AM EST Office Visit [facility] [address] [place] [address] Marti Kerns 10/06/2024 Refill [facility] [address] [place] [address] Mima Rock MD 10/05/2024 Refill [facility] [address] [place] [address] Ilene Goins MD 10/05/2024 Refill [facility] [address] [place] [address] Mima Rock MD 10/04/2024 Refill [facility] [address] [place] [address] Humberto Marie MD 09/29/2024 9:00 AM EST Office Visit [facility] [address] [place] [address] Kerns Rameshcherie Ill-fitting dentures (Primary Dx) 09/18/2024 10:00 AM EST Office Visit [facility] [address] [place] [address] Polo Ford Dental calculus (Primary Dx) 09/15/2024 Refill [facility] [address] [place] [address] Mima Rock MD 09/14/2024 Telephone [facility] [address] [place] [address] Polo Ford 09/12/2024 9:40 AM EST Office Visit [facility] [address] [place] [address] Humberto Marie MD Influenza-like symptoms (Primary Dx); Tobacco dependence; Hypertension, unspecified type; Viral URI 09/09/2024 10:00 AM EST Office Visit [facility] [address] [place] [address] Jordin Baird MD Viral URI with cough [...] Description 03/20/2025 9:00 AM EDT Office Visit [facility] [address] [place] [address] Polo Ford Health Maintenance Due Date Last [...] AM EST) 10/13/2024 7:51 AM EST Narrative [facility] IMAGING - 10/13/2024 7:52 AM EST ? [facility] ?[address] ?[place] [address] ? Ultrasound Report ? Signed ? Patient: Jose Luis,Noe N ?MR#: [id number] ?? 164 ? : 1955 ?Acct:[id number] ? Age/Sex: 69 / M ?ADM Date: 10/12/24 ? Loc: HO.US ? Attending Dr: Joseph Mcclain MD ? Ordering Physician: Joseph Mcclain MD ?? Date of Service: 10/12/24 ?? Procedure(s): US arterial duplex BI w/ SAHARA ?? Accession Number(s): [id number] ? cc: Joseph Mcclain MD; Mima Rock [...] DD/ 0751 ? TD/TT: 10/13/24 0751 ? Novelty Dipper: ? Procedure Note Donotuseinterpreter, Image - 10/13/[address] [address] Ultrasound Report Signed Patient: Noe Amaya NMR#: [id number] 164 : 7Acct:[id number] Age/Sex: 69 / MADM Date: 10/12/24 Loc: HO.US Attending Dr: Joseph Mcclain MD Ordering Physician: Joseph Mcclain MD Date of Service: 10/12/24 Procedure(s): US arterial duplex BI w/ SAHARA Accession Number(s): [id number] cc: Joseph Mcclain MD; Mima Rock MD [...] OV> 10/13/24 0752 DD/ 0 TD/TT: 10/13/24750 Novelty Dipper: us [facility] External Provider CV VASC ULAR PROCEDURES Edited Result - Final [facility] IMAGING [address] [place] [address] * XR Chest 2 Views (09/12/2024 10:25 AM EST) Anatomical Region Laterality Modality Chest Radiographic Stacy ging 09/12/2024 10:2 5 AM EST Narrative 09/12/2024 12:25 PM EST ?[facility] ?[address] ?[place] [address] ?XRay Report ? Signed ? Patient: Noe Amaya ?MR#: [id number] ?? 164 ? : 1955 ?Acct:[id number] ? Age/Sex: 69 / M ?ADM Date: 09/12/24 ? Loc: HO.HHCX ? Attending Dr: Humberto Marie MD ? Ordering Physician: HUMBERTO MARIE MD ?? Date of Service: 09/12/24 ?? Procedure(s): XR chest 2V ?? Accession Number(s): [id number] ? cc: HUMBERTO MARIE MD ? EXAMINATION: [...] DD/ 1025 ? TD/TT: 09/12/24 1050 ? Novelty Dipper: ? Procedure Note Donotuseinterpreter, Image - 09/12/2024 [facility] [address] [place] [address] XRay Report Signed Patient: Noe Amaya NMR#: [id number] 164 : 7Acct:[id number] Age/Sex: 69 / MADM Date: 09/12/24 [facility]: Humberto Marie MD Ordering Physician: HUMBERTO MARIE MD Date of Service: 09/12/24 Procedure(s): XR chest 2V Accession Number(s): [id number] cc: HUMBERTO MARIE MD EXAMINATION: XR CHEST [...] 09/12/24 1222 DD/ 1025 TD/TT: 09/12/24 1050 Novelty Dipper: Humberto Marie MD IMG XR PROCEDURES Final Result * Influenza B (ID NOW Rapid Molecular) (09/12/2024 9:54 AM EST) Influenza B Negative Negative, Indeterminate [facility] Swab 09/12/2024 9:54 AM EST Humberto Marie MD POINT OF CARE TEST ENTER/EDIT OR DERABLES Final Result [facility] [address] [place] [address] [phone] * Influenza A (ID NOW Rapid Molecular) (09/12/2024 9:54 AM EST) Pathologist [facility] Influenza A Negative Negative, Indeterminate [facility] Swab 09/12/2024 9:54 AM EST Humberto Marie MD POINT OF CARE TEST ENTER/EDIT OR DERABLES Final Result [facility] [address] [place] [phone] * POCT Rapid COVID Ag (09/12/2024 9:54 AM EST) Only the most recent of2 resultswithin the time period is included. [facility] Rapid COVID Ag Negative [facility] Swab 09/12/2024 9:54 AM EST Humberto Marie MD POINT OF CARE TEST ENTER/EDIT OR DERABLES Final Result Performing Organization Address City/[facility]/ZIP Co de Phone Number [facility] [address] [place] [phone] * POCT Influenza B manually resulted (09/09/2024 10:12 AM EST) [facility] Rapid Influenza B Ag Negative Negative, Indeterminate QC Media Lot # [id number] Lot# Expiration Date Swab 09/09/2024 10:1 2 AM EST us Jordin Baird MD POINT OF CARE TEST ENTER/EDIT OR DERABLES Final Result * POCT Influenza A manually resulted (09/09/2024 10:12 AM EST) [facility] Rapid Influenza A Ag Negative Negative, Indeterminate QC Media Lot # [id number] Lot# Expiration Date Swab Nasopharyngeal structure / Unknown 09/09/2024 10:12 AM EST us Jordin Baird MD POINT OF CARE TEST ENTER/EDIT OR DERABLES Final Result * (ABNORMAL) Lipid Panel, Standard (08/18/2024 8:38 AM EST) Triglycerides 141 <150 mg/dL [facility] Comment:Desirable Triglyceri de: less than 150 mg/dLBorderline High Triglyceride 150-199 mg/dLHigh Triglyceride: 200-499 mg/dLVery High Triglyceride: greater than or equal to 5OO mg/dL Cholesterol 181 <200 mg/dL [facility] Comment:Desirable Cholestero l: less than 200 mg/dLBorderline High Cholesterol: 200-239 mg/dLHigh Cholesterol: greater than 239 mg/dL LDL Cholesterol Calculated 105(H) <100 mg/dL [facility] Comment:Desirable LDL: less than 100 mg/dLNear Optimal/Above Optimal LDL: 110- 129 mg/dLBorderline High LDL: 130-159 mg/dLHigh LDL: 160-189 mg/dLVery High LDL: greater than or equal to 190 mg/dL HDL Cholesterol 48 >40 mg/dL [facility] Comment:Desirable HDL: great er than 40 mg/dL Note: This HDL assay may give artificially low results in patients with liver disease. Blood Venous blood specimen / Unknown 08/18/2024 8:38 AM EST 08/18/2024 2:10 PM EST us Mima Rock MD LAB BLOOD ORDERABLES Final Resul t [facility] [address] [place] [address] [phone] from Last 3 Months or Most Recently Relevant to Health Maintenance Insurance - FLO * Guarantor: Noe Amaya Account Type Relation to Patient Date of Phone Billing Address Dental Self 1955 [address] [facility] [address] [place] [address] DENTAL [facility] Care Teams Master Esthetician Relationship Specialty Start Date End Date Mima Rock MD [address] [place] [address] PCP - General Family Medicine 08/02/20
--- OUTSIDE RECORDS SUMMARY | 2024-12-08 10:44 | XMS_ITS | Encounter Summary ---
Author Organization [employer] Address 75 [facility] 7t [place] [address] Care Team Providers Care Medical Genetics Director Name Role Phone Mima Rock MD Primary Care Provider [phone] Reason for Visit * Reason Onset Date Comments Medication Question 01/28/2023 Encounter Details Date Type Department Care Team ([facility] st Contact Info) Description 01/28/2023 Telephone C [facility] 505 [place], [place] [phone] Mima Rock MD 505 [place] [address] Medication Question Social History Tobacco Use Types [...] #1230 - [place] - [address] [facility] documented in this encounter Plan of Treatment Upcoming Encounters Date Type Department Care Team (Late st Contact Info) Description 03/20/2025 9:00 AM EDT Office Visit [facility] [address] [place] [address] Polo Ford documented as of this encounter Visit Diagnoses Diagnosis Intertrigo Other specified erythematous condition documented in this encounter Care Teams Medical Genetics Director Relationship Specialty Start Date End Date Mima Rock MD [address] [place] [address] PCP - General Family Medicine 08/02/20 documented as of this encounter
--- OUTSIDE RECORDS SUMMARY | 2024-12-08 10:44 | XMS_ITS | Encounter Summary ---
Author Organization [employer] Address 75 [facility] 7t [place] [address] Care Team Providers Care Building Construction Estimator Name Role Phone Mima Rock MD Primary Care Provider [phone] Reason for Visit * Reason Onset Date Comments Nurse Triage 05/12/2023 Encounter Details Date Type Department Care Team (Late st Contact Info) Description 05/12/2023 Telephone [facility] [address] [place], [place] [phone] Mima Rock MD 505 [place] [address] Nurse Triage Social History Tobacco Use Types [...] Pt requests apt tomorrow declines offer for [facility] today. Pt is advised to come to [facility] tomorrow morning opens 830am-400pm. Pt agrees with [...] Description 03/20/2025 9:00 AM EDT Office Visit [facility] [address] [place] [address] Polo Ford documented as of this encounter Visit Diagnoses Not on filedocumented in this encounter Care Teams Building Construction Estimator Relationship Specialty Start Date End Date Mima Rock MD [address] [place] [address] PCP - General Family Medicine 08/02/20 documented as of this encounter
--- OUTSIDE RECORDS SUMMARY | 2024-12-08 10:44 | XMS_ITS | Encounter Summary ---
Author Organization [employer] Address 75 [facility] 7t [place] [address] Care Team Providers Care Car Distributor Name Role Phone Mima Rock MD Primary Care Provider [phone] Reason for Visit * Reason Onset Date Comments Medication Question 10/01/2023 Encounter Details Date Type Department Care Team ([facility] st Contact Info) Description 10/01/2023 Telephone C [facility] 505 [place], [place] [phone] Mima Rock MD 505 [place] [address] Medication Question Social History Tobacco Use Types [...] Metoprolol 25 mg, Atorvastatin, and Penicillin0.4 mg. [place] unable to confirm Penicillin if any questions please contact pharmacy at [phone]. documented in this encounter Plan of Treatment Upcoming Encounters Date Type Department Care Team (Late st Contact Info) Description 03/20/2025 9:00 AM EDT Office Visit [facility]ULT [facility] [address] [place] [address] Polo Ford documented as of this encounter Visit Diagnoses Not on filedocumented in this encounter Care Teams Car Distributor Relationship Specialty Start Date End Date Mima Rock MD [address] [place] [address] PCP - General Family Medicine 08/02/20 documented as of this encounter
--- OUTSIDE RECORDS SUMMARY | 2024-12-08 10:44 | XMS_ITS | Encounter Summary ---
Author Organization [employer] Address 75 [facility] 7t [place] [address] Care Team Providers Care Recycling Coordinator Name Role Phone Mima Rock MD Primary Care Provider [phone] Reason for Visit * Reason Onset Date Comments Medication Question 10/01/2023 Encounter Details Date Type Department Care Team ([facility] st Contact Info) Description 10/01/2023 Telephone C [facility] 505 [place], [place] [phone] Mima Rock MD 505 [place] [address] Medication Question Social History Tobacco Use Types [...] from 10/01 11:39. To contact Mitzi at [phone] Rock * Telephone Encounter - [...] - 10/01/2023 11:29 AM EST Tc from [employer] requesting a call in regards to some [...] medications doing the same thing. Please contact [phone] documented in this encounter Plan of Treatment Upcoming Encounters Date Type Department Care Team (Late st Contact Info) Description 03/20/2025 9:00 AM EDT Office Visit [facility] [address] [place] [address] Polo Ford documented as of this encounter Visit Diagnoses Not on filedocumented in this encounter Care Teams Recycling Coordinator Relationship Specialty Start Date End Date Mima Rock MD [address] [place] [address] PCP - General Family Medicine 08/02/20 documented as of this encounter
--- OUTSIDE RECORDS SUMMARY | 2024-12-08 10:44 | XMS_ITS | Encounter Summary ---
Author Organization [employer] Address 75 [facility] 7t [place] [address] Care Team Providers Care Diesel Truck Mechanic Name Role Phone Mima Rock MD Primary Care Provider [phone] Reason for Visit * Reason Comments Med Refill Encounter Details Date Type Department Care Team ([facility] st Contact Info) Description 11/22/2023 Refill [facility] [address] [place] [address] Ellie Ford MD 505 [place] [address] Intertrigo Social History Tobacco Use Types Packs/Day [...] AM EDT Office Visit [facility] [address] [place] [address] Polo Ford documented as of this encounter Visit Diagnoses Diagnosis Intertrigo Other specified erythematous condition documented in this encounter Care Teams Diesel Truck Mechanic Relationship Specialty Start Date End Date Mima Rock MD [address] [place] [address] PCP - General Family Medicine 08/02/20 documented as of this encounter
--- OUTSIDE RECORDS SUMMARY | 2024-12-08 10:44 | XMS_ITS | Encounter Summary ---
Author Organization [employer] Address 75 [facility] 7t [place] [address] Care Team Providers Care Cooking Chef Name Role Phone Mima Rock MD Primary Care Provider [phone] Reason for Visit * Reason Onset Date Comments Appointment Request 09/01/2023 Encounter Details Date Type Department Care Team ([facility] st Contact Info) Description 09/01/2023 Telephone [facility] 505 [place] [address] Mima Rock MD 505 [place] [address] Appointment Request Social History Tobacco Use Types [...] encounter Miscellaneous Notes * Telephone Encounter - Laeyda Gino - 09/01/2023 10:56 AM EST Tc from pt requesting an appointment with derm due to outbreak in groin area. Please contact pt at [phone] documented in this encounter Plan of Treatment Upcoming Encounters Date Type Department Care Team (Late st Contact Info) Description 03/20/2025 9:00 AM EDT Office Visit [facility] [address] [place] [address] Polo Ford documented as of this encounter Visit Diagnoses Not on filedocumented in this encounter Care Teams Cooking Chef Relationship Specialty Start Date End Date Mima Rock MD [address] [place] [address] PCP - General Family Medicine 08/02/20 documented as of this encounter
--- OUTSIDE RECORDS SUMMARY | 2024-12-08 10:44 | XMS_ITS | Encounter Summary ---
Author Organization [employer] Address 75 [facility] 7t [place] [address] Care Team Providers Care Pe Electrical Engineer Name Role Phone Mima Rock MD Primary Care Provider [phone] Reason for Visit * Reason Comments Med Refill Encounter Details Date Type Department Care Team (Late Contact Info) Description 2023 Refill [facility] MED & PEDS [address] [place] [address] Mima Rock MD 505 [place] [address] Social History Tobacco Use Types Packs/Day Years [...] Description 03/20/2025 9:00 AM EDT Office Visit [facility] ADULT DENTAL [address] [place] [address] Polo Ford documented as of this encounter Visit Diagnoses Not on filedocumented in this encounter Care Teams Pe Electrical Engineer Relationship Specialty Start Date End Date [place] [address] PCP - General Family Medicine 08/02/20 documented as of this encounter
--- OUTSIDE RECORDS SUMMARY | 2024-12-08 10:44 | XMS_ITS | Encounter Summary ---
Author Organization [employer] Address [address] [facility] [address] 7t [place] [address] Care Team Providers Care Computer Support Analyst Name Role Phone Mima Rock MD Primary Care Provider [phone] Reason for Visit * Reason Comments Med Refill Encounter Details Date Type Department Care Team ([facility] st Contact Info) Description 10/05/2024 Refill [facility] 230 [place] [address] Ilene Goins MD [address] [place], [place] [phone] Social History Tobacco Use Types Packs/Day Years [...] the past 12 months, has t he [employer], oil or water company threatened to shut [...] 9:00 AM EDT Office Visit [facility] ADULT DENT[facility] [address] [place] [address] Polo Ford documented as of this encounter Visit Diagnoses Not on filedocumented in this encounter Care Teams Computer Support Analyst Relationship Specialty Start Date End Date Mima Rock MD [address] [place] [address] PCP - General Family Medicine 08/02/20 documented as of this encounter
--- OUTSIDE RECORDS SUMMARY | 2024-12-08 10:44 | XMS_ITS | Encounter Summary ---
Author Organization [employer] Address 75 [facility] 7t [place] [address] Care Team Providers Care Blood Bank Attendant Name Role Phone Mima Rock MD Primary Care Provider [phone] Reason for Visit * Reason Comments Med Refill Encounter Details Date Type Department Care Team (Late Contact Info) Description 03/24/2023 Refill [facility] MED [facility] PED[facility] [address] [place] [address] Mima Rock MD 505 [place] [address] Chronic fatigue Social History Tobacco Use Types [...] Upcoming Encounters Date Type Department Care Team ([facility] Contact Info) Description 03/20/2025 9:00 AM EDT Office Visit [facility] ADULT DENTAL [address] [place] [address] Polo Ford documented as of this encounter Visit Diagnoses Diagnosis Chronic fatigue Other malaise and fatigue documented in this encounter Care Teams Blood Bank Attendant Relationship Specialty Start Date End Date Mima Rock MD [address] [place] [address] PCP - General Family Medicine 08/02/20 documented as of this encounter
--- OUTSIDE RECORDS SUMMARY | 2024-12-08 10:45 | XMS_ITS | Encounter Summary ---
Author Organization [employer] Address 75 [facility] 7t [place] [address] Care Team Providers Care Youth Worker Name Role Phone Mima Rock MD Primary Care Provider [phone] Reason for Visit * Reason Comments Med Change Request Encounter Details Date Type Department Care Team ([facility] st Contact Info) Description 10/04/2024 Refill [facility] 230 [place], [place] [phone] Humberto Mooney MD 230 [place], [place] [phone] Social History Tobacco Use Types Packs/Day Years [...] Description 03/20/2025 9:00 AM EDT Office Visit [facility] [address] [place] [address] Polo Ford documented as of this encounter Visit Diagnoses Not on filedocumented in this encounter Care Teams Youth Worker Relationship Specialty Start Date End Date Mima Rock MD [address] [place] [address] PCP - General Family Medicine 08/02/20 documented as of this encounter
--- OUTSIDE RECORDS SUMMARY | 2024-12-08 10:45 | XMS_ITS | Encounter Summary ---
Author Organization [employer] Address 75 [facility] 7t [place] [address] Care Team Providers Care Real Estate Attorney Name Role Phone Mima Rock MD Primary Care Provider [phone] Encounter Details Date Type Department Care Team (Latest Contact Info) Description 05/18/2022 Abstract [facility] CON[facility] Dental, Provider, DDS Social History [...] 9:00 AM EDT Office Visit [facility] ADULT D[facility] [address] [place] [address] Polo Ford documented as of this encounter Visit Diagnoses Not on filedocumented in this encounter Care Teams Real Estate Attorney Relationship Specialty Start Date End Date Mima Rock MD [address] [place] [address] PCP - General Family Medicine 08/02/20 documented as of this encounter
--- OUTSIDE RECORDS SUMMARY | 2024-12-08 10:45 | XMS_ITS | Encounter Summary ---
Author Organization [employer] Address 75 [facility] 7t [place] [address] Care Team Providers Care Museum Specialist Name Role Phone Mima Rock MD Primary Care Provider [phone] Reason for Visit * Reason Comments Med Refill Encounter Details Date Type Department Care Team ([facility] st Contact Info) Description 10/05/2024 Refill [facility] MED & PEDS 505 [place], [place] [phone] Mima Rock MD 505 [place] [address] Social History Tobacco Use Types Packs/Day Years [...] t he electric, gas, oil or water [employer] threatened to shut off services in your [...] Description 03/20/2025 9:00 AM EDT Office Visit [facility] ADULT DENTAL [address] [place] [address] Polo Ford documented as of this encounter Visit Diagnoses Not on filedocumented in this encounter Care Teams Museum Specialist Relationship Specialty Start Date End Date Mima Rock MD [address] [place] [address] PCP - General Family Medicine 08/02/20 documented as of this encounter
--- OUTSIDE RECORDS SUMMARY | 2024-12-08 10:45 | XMS_ITS | Encounter Summary ---
Author Organization [employer] Address 75 [facility] 7t [place] [address] Care Team Providers Care Electrolytic De Scaler Name Role Phone Mima Rock MD Primary Care Provider [phone] Encounter Details Date Type Department Care Team (Late st Contact Info) Description 08/30/2022 Orders Only [facility] MEDICINE [address] [place], [place] [phone] Norma Nevarez MD [address] [place] [address] Peripheral artery disease (CMS/HCC) (Primary Dx) Social [...] Description 03/20/2025 9:00 AM EDT Office Visit [facility] ADULT DENTAL [address] [place] [address] Polo Ford documented as of this encounter Visit Diagnoses Diagnosis Peripheral artery disease (CMS/HCC)- Primary documented in this encounter Care Teams Electrolytic De Scaler Relationship Specialty Start Date End Date Mima Rock MD [address] [place] [phone] PCP - General Family Medicine 08/02/20 documented as of this encounter
--- OUTSIDE RECORDS SUMMARY | 2024-12-08 10:45 | XMS_ITS | Encounter Summary ---
Author Organization [employer] Address [address] [facility] 7t [place] [address] Care Team Providers Care Senior Structural Engineer Name Role Phone Mima Rock MD Primary Care Provider [phone] Encounter Details Date Type Department Care Team (Late st Contact Info) Description 08/31/2022 Orders Only [facility] [address] [place] [address] Mima Rock MD [address] [place] [address] Claudication of both lower extremities (CMS/HCC) (Primary [...] Description 03/20/2025 9:00 AM EDT Office Visit [facility] ADULT [facility] [address] [place] [address] Polo Ford documented as of this encounter Visit Diagnoses Diagnosis Claudication of both lower extremities (CMS/HCC)- Primary documented in this encounter Care Teams Senior Structural Engineer Relationship Specialty Start Date End Date Mima Rock MD [address] [place] [address] PCP - General Family Medicine 08/02/20 documented as of this encounter
== END 2024-12-08 09:45 | disposition home or self-care (01) ==
LOC: HO.CT 09:44
PROVIDERS: PCP Student in an Organized Health Care Education/Training Program; Visit Provider Physician Assistant Medical
DX: Z12.2 Encounter for screening for malignant neoplasm of respiratory organs (principal); F17.210 Nicotine dependence, cigarettes, uncomplicated
CPT/HCPCS: 71271; G0296

== ENCOUNTER → 2024-12-08 09:45 | Outpatient (BNV) | payer OTHER, SELFPAY | PROVIDERS: PCP Student in an Organized Health Care Education/Training Program; Visit Provider Radiology Diagnostic Radiology | DX: F17.210 Nicotine dependence, cigarettes, uncomplicated (principal) | CPT/HCPCS: 71271 ==

== ENCOUNTER 2024-12-21 08:59 | Outpatient (AMB) | payer OTHER, SELFPAY ==
--- NOTE | 2024-12-21 09:00 | MHC.OFFWIV ---
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 Patient Tobacco Use Status: Current everyday Tobacco user Allergies No Known Allergies Allergy (Verified 12/21/24 09:02) HPI HPI Comments History of Present Illness Details History of Present Illness The patient is a 69-year-old male presenting with pain in the left knee. The discomfort began 6 days ago and is described as severe, particularly when walking, while there is no recall of a specific injury leading to this onset. Despite taking ibuprofen, relief was only temporary. Pain is localized over the side of the kneecap and is exacerbated by pressure application and moving side to side. The patient has experienced arthritic symptoms previously and received cortisone injections in the shoulder from past work activities. Elevating the leg provides some relief. Patient does take Plavix. Physical Exam General: Cooperative, healthy appearing, comfortable, no acute distress and well developed Orientation: Patient oriented x3 Limitations: Pain in the left knee, Head: Normal to inspection Ears: Hearing grossly normal bilaterally Nose: Normal External nose present Face and sinus: Normal facial exam Eyes: Appearance normal, both eyes and all related structures Neck: Normal visual inspection and Yes full ROM Respiratory: Normal respiratory effort and able to speak in complete sentences. Skin: No rashes or lesions noted Neuro: Patient oriented x3 Extremities: as below [facility] Medical History (Updated 12/21/24 @ 09:20 by Vi Valdez PA-C) Tubular adenoma of colon PAD (peripheral artery disease) Elevated PSA BPH (benign prostatic hyperplasia) Nicotine dependence, cigarettes, uncomplicated COVID-19 Anxiety HTN (hypertension) Surgical History History of atherectomy History of colonoscopy S/P cardiac cath S/P angiogram of extremity Family History Father Hx of colon cancer, stage IV Hx of diabetes insipidus Mother Family history of high blood pressure Social History (Updated 12/08/24 @ 09:43 by Betsy Uribe PA-C) Household Members: None Are you a primary daycare assistant to a significant other at home: No Do you presently have visiting nurse or other home services: No Alcohol intake: current Alcohol intake frequency: holidays/special occasions only Patient Tobacco Use Status: Current everyday Tobacco user Tobacco use type: Cigarette Cigarette Packs Per Day: 0.5 Cigarettes Per Day: 10 Years Smoked: (onset 17yo, 1/2ppd x 52yrs 25+PYH) Second Hand Smoke Exposure: No Current occupational status: unemployed Current occupation: left handed Review of Systems Const All systems reviewed & are unremarkable except as noted in HPI and below Physical Exam Vital Signs: Last Vital Signs Pulse 87 12/21/24 09:01 BP 140/90 H 12/21/24 09:01 Pulse Ox 98 12/21/24 09:01 Oxygen Delivery Method Room Air 12/21/24 09:01 Extrem Left lower extremity: knee Details: normal to inspection, tenderness (medial lower than joint line), normal ROM and knee ligament exam normal; no swelling, no abrasions, no lacerations, no ecchymosis, no deformity and no unusual warmth Assessment & Plan Assessment & Plan (1) Bursitis: Code(s): M71.9 - Bursopathy, unspecified Qualifiers: Bursitis location: knee Knee bursitis location: pes anserinus bursitis Laterality: left Qualified Code(s): M70.52 - Other bursitis of knee, left knee Plan: The diagnosis is consistent with left knee bursitis, and treatment has been initiated with compression support using an Tani wrap and topical voltaren gel, dosed every 12 hours for three days. Ice application is also recommended as part of the management plan. Proper instructions for the application of the compression wrap were provided. Should symptoms persist or worsen, further evaluation will be necessary. As patient does take Plavix, his educated that he should not be taking NSAIDs as well. Patient was informed and verbally consented to the use of an ambient scribe for clinic note documentation during this visit. Coding Level of Care Code New Pt Level 3 (64990) Diagnoses Pes anserinus bursitis of left knee M70.52 Bursitis location: knee Knee bursitis location: pes anserinus bursitis Laterality: left
[2024-12-21 09:01] VITALS: BP 140/90; PULSE 87; O2SAT 98
--- OUTSIDE RECORDS SUMMARY | 2024-12-21 09:59 | XMS_ITS | Encounter Summary ---
Author Organization [employer] Address [address] [facility] 7t [place] [address] Care Team Providers Care Java Web Developer Name Role Phone Mima Rock MD Primary Care Provider [phone] Reason for Visit * Reason Comments Med Refill Encounter Details Date Type Department Care Team ([facility] st Contact Info) Description 11/02/2023 Refill [facility] & [facility]EDS [address] [place] [address] Ellie Ford MD [address] [place] [address] [employer] Social History Tobacco Use Types Packs/Day [...] Description 03/20/2025 9:00 AM EDT Office Visit [facility] ADULT DENTAL [address] [place] [address] Polo Ford documented as of this encounter Visit Diagnoses Diagnosis Intertrigo Other specified erythematous condition documented in this encounter Care Teams Java Web Developer Relationship Specialty Start Date End Date Mima Rock MD [address] [place] [id number] PCP - General Family Medicine 08/02/20 documented as of this encounter
--- OUTSIDE RECORDS SUMMARY | 2024-12-21 09:59 | XMS_ITS | Encounter Summary ---
Author Organization [employer] Address [address] [facility] 7t [place] [address] Care Team Providers Care Assembler Deck And Hull Name Role Phone Mima Rock MD Primary Care Provider [phone] Reason for Visit * Reason Comments Med Refill Encounter Details Date Type Department Care Team (Late Contact Info) Description 2023 Refill [facility] [address] [place] [address] Mima Rock MD [address] [place] [address] Social History Tobacco Use Types Packs/Day Years [...] Description 03/20/2025 9:00 AM EDT Office Visit [facility] ADULT DENTAL [address] [place] [address] Polo Ford documented as of this encounter Visit Diagnoses Not on filedocumented in this encounter Care Teams Assembler Deck And Hull Relationship Specialty Start Date End [place] [address] PCP - General Family Medicine 08/02/20 documented as of this encounter
--- OUTSIDE RECORDS SUMMARY | 2024-12-21 09:59 | XMS_ITS | Encounter Summary ---
Author Organization [employer] Address [address] [facility] 7t [place] [address] Care Team Providers Care Clinical Advisor Name Role Phone Mima Rock MD Primary Care Provider [phone] Reason for Visit * Reason Onset Date Comments Medication Question 10/01/2023 Encounter Details Date Type Department Care Team ([facility] st Contact Info) Description 10/01/2023 Telephone C [facility] MED [facility] PEDS [address] [place], [place] [phone] Mima Rock MD [address] [place] [address] Medication Question Social History Tobacco Use Types [...] from 10/01 11:39. To contact Mitzi at [phone] Rock * Telephone Encounter - [...] - 10/01/2023 11:29 AM EST Tc from [employer] requesting a call in regards to some [...] medications doing the same thing. Please contact [phone] documented in this encounter Plan of Treatment Upcoming Encounters Date Type Department Care Team (Late st Contact Info) Description 03/20/2025 9:00 AM EDT Office Visit [facility] ADULT DENTAL [address] [place] [address] Polo Ford documented as of this encounter Visit Diagnoses Not on filedocumented in this encounter Care Teams Clinical Advisor Relationship Specialty Start Date End Date Mima Rock MD [address] [place] [phone] PCP - General Family Medicine 08/02/20 documented as of this encounter
--- OUTSIDE RECORDS SUMMARY | 2024-12-21 09:59 | XMS_ITS | Encounter Summary ---
Author Organization [employer] Address [address] [facility] 7t [place] [address] Care Team Providers Care Breaker Tender Name Role Phone Mima Rock MD Primary Care Provider [phone] Reason for Visit * Reason Comments Med Refill Encounter Details Date Type Department Care Team ([facility] st Contact Info) Description 11/22/2023 Refill [facility] MED & PEDS [address] [place] [address] Ellie Ford MD [address] [place] [address] [employer] Social History Tobacco Use Types Packs/Day [...] [facility] ADULT DENTAL [address] [place] [address] Polo Ford documented as of this encounter Visit Diagnoses Diagnosis Intertrigo Other specified erythematous condition documented in this encounter Care Teams Breaker Tender Relationship Specialty Start Date End Date Mima Rock MD [address] [place] [phone] PCP - General Family Medicine 08/02/20 documented as of this encounter
--- OUTSIDE RECORDS SUMMARY | 2024-12-21 09:59 | XMS_ITS | Encounter Summary ---
Author Organization [employer] Address [address] [facility] 7t [place] [address] Care Team Providers Care Planning Management It Specialist Name Role Phone Mima Rock MD Primary Care Provider [phone] Reason for Visit * Reason Comments Med Change Request Encounter Details Date Type Department Care Team ([facility] st Contact Info) Description 10/04/2024 Refill [facility] [address] [place], [place] [phone] Humberto Mooney MD [address] [place], [place] [phone] Social History Tobacco Use Types Packs/Day Years Used Date Smoking Tobacco: Every Day Cigarettes Passive Smoke Exposure: Never Alcohol Use Standard Drinks/Week Comments Yes 2 (1 standard drink = 0.6 oz pur e alcohol) Housing Stability Answer Date Recorded What is your housing situation today? I have oswadlo sahu 07/12/[address] you [...] Description 03/20/2025 9:00 AM EDT Office Visit [facility] ADULT DENTAL [address] [place] [address] Polo Ford documented as of this encounter Visit Diagnoses Not on filedocumented in this encounter Care Teams Planning Management It Specialist Relationship Specialty Start Date End Date Mima Rock MD [address] [place] [address] PCP - General Family Medicine 08/02/20 documented as of this encounter
--- OUTSIDE RECORDS SUMMARY | 2024-12-21 09:59 | XMS_ITS | Clinical Summary ---
Author Organization [employer] Address [address] [facility] 7t [place] [address] Care Team Providers Care Terminal Gauger Supervisor Name Role Phone Mima Rock MD Primary Care Provider [phone] Allergies No known active allergies Medications nicotine [...] Encounters Date Type Department Care Team Description 12/08/2024 Orders Only [facility] External Provider, [facility] 11/01/2024 8:30 AM EST Office Visit [facility] ADULT DENT[facility] [address] [place] [address] Marti Kerns Dental caries (Primary Dx) 10/28/2024 Refill [facility] [address] [place] [address] Humberto Mooney MD 10/12/2024 Orders Only [facility] External Provider, [facility] 10/06/2024 10:30 AM EST Office Visit [facility] ADULT D[facility] [address] [place] [address] Marti Kerns 10/06/2024 Refill [facility] P[facility] [address] [place] [address] Mima Rock MD 10/05/2024 Refill [facility] [address] [place] [address] Ilene Goins MD 10/05/2024 Refill [facility] [address] [place] [address] Mima Rock MD 10/04/2024 Refill [facility] [address] [place] [address] Humberto Mooney MD 09/29/2024 9:00 AM EST Office Visit [facility] ADULT D[facility] [address] [place] [address] Marti Kerns Ill-fitting dentures (Primary Dx) from Last 3 Months Immunizations Name Administration [...] Description 03/20/2025 9:00 AM EDT Office Visit [facility] ADULT DENTAL [address] [place] [address] Polo Ford Health Maintenance Due Date Last Done Comments CT Colonography 1955 Colonoscopy 1957 Colorectal Cancer Screening 1955 FIT DNA/Cologuard 1957 FIT 1957 FOBT 1957 Sigmoidoscopy 1957 Alcohol/Substance Use Screening 1969 Hepatitis C Screening 1975 Depression Screening 11/28/2023 11/27/2022, 11/28/19 Zoster Vaccines (2 of 2) 11/23/2024 09/28/2024, 04/28 Dental Oral Exam 03/20/2025 09/18/2024, , 09/14/2023 [...] Procedure Name Priority Date/Time Associated Diagnosis Comments LDCT LUNG SCREENING Routine 12/08/2024 9 :46 AM EDT CASE PRESENTATION, DETAILED AND EXTENSIVE TREATMENT PLANNING [...] - MAXILLARY Routine 09/29/2024 9:00 AM EST PROPHYLAXIS - ADULT Routine 09/18/2024 1 0:00 AM EST INTRAORAL - COMPLETE SERIES OF RADIOGRAPHIC IMAGES Routine 09/18/2024 10:00 AM EST PERIODIC ORAL EVALUATION - ESTABLISHED PATIENT Routine 09/18/2024 10:00 AM EST LIPID PANEL, STANDARD Routine 08/18/2024 8:38 AM EST Primary hypertension from Last 3 Months or Most Recently Relevant to Health Maintenance Results * CT Lung Screening Low dose (12/08/2024 9:46 AM EDT) Anatomical Region Laterality Modality Lung Computed Tomogra phy 12/08/2024 9:46 AM EDT Narrative 12/08/2024 11:02 AM EDT ? [facility] ?[address] ?[place] [address] ? CT Scan Report ? Signed ? Patient: Jose Luis,Noe N ?MR#: [id number] ?? 164 ? : 1955 ?Acct:[id number] ? Age/Sex: 69 / M ?ADM Date: 12/08/24 ? Loc: HO.CT ? Attending Dr: Betsy Uribe PA-C ? Ordering Physician: Betsy Uribe PA-C ?? Date of Service: 12/08/24 ?? Procedure(s): CT lung screening ?? Accession Number(s): [id number] ? cc: Betsy Uribe PA-C; Mima Rock MD ? Report Number: ?? [id number]: Total DLP = ?? 52.00 mGy-cm ?? EXAMINATION: ??CT LUNG SCREENING ? HISTORY: Smoking history ? TECHNIQUE: Low dose axial images were obtained from the sternal notch ?? to upper abdomen without IV contrast per standard departmental ?? protocol. ??Sagittal and coronal reformatted images were also obtained ?? and reviewed. ??One or more of the following techniques was used for ?? dose reduction: Automated exposure control, adjustment of the mA and/or ?? kV according to patient size, use of iterative reconstruction technique. ? DLP: 52 mGy-cm ? COMPARISON: ??Correlation is made with PA and lateral views of the chest ?? dated 09/12/2024. ? FINDINGS: ? Lung nodules: There is a 5 mm nodule in the medial right upper lobe ?? (series 4, image 37). There is a 2 mm nodule in the superior segment of ?? the right lower lobe (series 4, image 61). A 4 mm linear nodule is seen ?? in the right middle lobe (series 4, image 93). There is a 2 mm nodule ?? in the left upper lobe (series 4, image 72). There is a punctate nodule ?? at the left lung base (series 4, image 108). ? Emphysema: none ? Coronary Calcification: ??moderate ? Aortic Arch Calcification: ??severe ? Potentially Significant Incidentals : none ? Additional Chest Findings: There is no pleural or pericardial effusion. ?? No mediastinal or axillary lymphadenopathy is identified. ? Visualized upper abdomen: The visualized portions of the liver, spleen, ?? and adrenals have an unremarkable unenhanced appearance. ? CT/CT lung screening ?? IMPRESSION: ?? No suspicious pulmonary nodules are identified. ? Severe coronary arterial calcification. ? LUNG-RADS ASSESSMENT: ?? Lung-RADS 2: Benign ? MANAGEMENT: ?? Continue annual screening with LDCT in 12 months ? Category S: N/A ? Electronically signed by: ??Jose Luis Cat MD ??12/08/2024 10:59 AM EDT ? Dictated By: ?Jose Luis Cat MD ? Signed By: ?<Electronically signed by Jose Luis Cat MD in OV> ?12/08/24 1059 ? DD/ 0946 ? TD/TT: 12/08/24 1013 ? Inspector And Tester: ? Procedure Note Daniel Brock - 12/08/[address] [place] [address] [address] Scan Report Signed Patient: Noe Amaya [facility]#: [id number] 164 : 1955cct:[id number] Age/Sex: 69 / MADM Date: 12/08/24 Loc: HO.CT Attending Dr: Betsy Uribe PA-C Ordering Physician: Betsy Uribe PA-C Date of Service: 12/08/24 Procedure(s): CT lung screening Accession Number(s): [id number] cc: Betsy Uribe PA-C; Mima Rock MD Report Number: [id number]: Total DLP = 52.00 mGy-cm EXAMINATION: CT LUNG SCREENING HISTORY: Smoking history TECHNIQUE: Low dose axial images were obtained from the sternal notch to upper abdomen without IV contrast per standard departmental protocol. Sagittal and coronal reformatted images were also obtained and reviewed. One or more of the following techniques was used for dose reduction: Automated exposure control, adjustment of the mA and/or kV according to patient size, use of iterative reconstruction technique. DLP: 52 mGy-cm COMPARISON: Correlation is made with PA and lateral views of the chest dated 09/12/2024. FINDINGS: Lung nodules: There is a 5 mm nodule in the medial right upper lobe (series 4, image 37). There is a 2 mm nodule in the superior segment of the right lower lobe (series 4, image 61). A 4 mm linear nodule is seen in the right middle lobe (series 4, image 93). There is a 2 mm nodule in the left upper lobe (series 4, image 72). There is a punctate nodule at the left lung base (series 4, image 108). Emphysema: none Coronary Calcification: moderate Aortic Arch Calcification: severe Potentially Significant Incidentals : none Additional Chest Findings: There is no pleural or pericardial effusion. No mediastinal or axillary lymphadenopathy is identified. Visualized upper abdomen: The visualized portions of the liver, spleen, and adrenals have an unremarkable unenhanced appearance. CT/CT lung screening IMPRESSION: No suspicious pulmonary nodules are identified. Severe coronary arterial calcification. LUNG-RADS ASSESSMENT: Lung-RADS 2: Benign MANAGEMENT: Continue annual screening with LDCT in 12 months Category S: N/A Electronically signed by: Jose Luis Cat MD 12/08/2024 10:59 AM EDT Dictated By: Jose Luis Cat MD Signed By: <Electronically signed by Jose Luis Cat MD in OV> 12/08/24 1059 DD/ 0946 TD/TT: 12/08/24 1013 Inspector And Tester: [facility] External Provider IMG CT PROCEDURES Final Result * [facility] US Lower Extremity Arterial Duplex Bilateral With Sahara (10/13/2024 7:51 AM EST) 10/13/2024 7:51 AM EST Narrative [facility] - 10/13/2024 7:52 AM EST ? [facility] ?[address] ?[place] [address] ? Ultrasound Report ? Signed ? Patient: Jose Luis,Noe N ?MR#: [id number] ?? 164 ? : 1955 ?Acct:[id number] ? Age/Sex: 69 / M ?ADM Date: 10/12/24 ? Loc: HO.US ? Attending Dr: Joseph Mcclain MD ? Ordering Physician: Joseph Mcclain MD ?? Date of Service: 10/12/24 ?? Procedure(s): US arterial duplex BI w/ SAHARA ?? Accession Number(s): [id number] ? cc: Joseph Mcclain MD; Mima Rock [...] DD/ 0751 ? TD/TT: 10/13/24 0751 ? Inspector And Tester: ? Procedure Note Donotuseinterpreter, Image - 10/13/[address] [address] Ultrasound Report Signed Patient: Noe Amaya [facility]#: [id number] 164 : 7Acct:[id number] Age/Sex: 69 / MADM Date: 10/12/24 Loc: HO.US Attending Dr: Joseph Mcclain MD Ordering Physician: Joseph Mcclain MD Date of Service: 10/12/24 Procedure(s): US arterial duplex BI w/ SAHARA Accession Number(s): [id number] cc: Joseph Mcclain MD; Mima Rock MD [...] OV> 10/13/24 0752 DD/ 0 TD/TT: 10/13/24750 Inspector And Tester: [facility] External Provider CV VASC ULAR PROCEDURES Edited Result - Final Performing Organization Address City/[facility]/ZIP Co de Phone Number [facility] [address] [place] [address] * (ABNORMAL) Lipid Panel, Standard (08/18/2024 8:38 AM EST) Triglycerides 141 <150 mg/dL [facility] Comment:Desirable Triglyceri de: less than 150 mg/dLBorderline High Triglyceride 150-199 mg/dLHigh Triglyceride: 200-499 mg/dLVery High Triglyceride: greater than or equal to 5OO mg/dL Cholesterol 181 <200 mg/dL [facility] Comment:Desirable Cholestero l: less than 200 mg/dLBorderline High Cholesterol: 200-239 mg/dLHigh Cholesterol: greater than 239 mg/dL LDL Cholesterol Calculated 105(H) <100 mg/dL [facility] Comment:Desirable LDL: less than 100 mg/dLNear Optimal/Above Optimal LDL: 110- 129 mg/dLBorderline High LDL: 130-159 mg/dLHigh LDL: 160-189 mg/dLVery High LDL: greater than or equal to 190 mg/dL HDL Cholesterol 48 >40 mg/dL [facility] Comment:Desirable HDL: great er than 40 mg/dL Note: This HDL assay may give artificially low results in patients with liver disease. Blood Venous blood specimen / Unknown 08/18/2024 8:38 AM EST 08/18/2024 2:10 PM EST Mima Rock MD LAB BLOOD ORDERABLES Final Resul t [facility] [address] [place] [address] [phone] from Last 3 Months or Most Recently Relevant to Health Maintenance [place] [address] [place] [address] - [facility] Care Teams Terminal Gauger Supervisor Relationship Specialty Start Date End Date Mima Rock MD [address] [place] [phone] PCP - General Family Medicine 08/02/20
--- OUTSIDE RECORDS SUMMARY | 2024-12-21 09:59 | XMS_ITS | Encounter Summary ---
Author Organization [employer] Address 75 [facility] 7t [place] [address] Care Team Providers Care Shank Archer Name Role Phone Mima Rock MD Primary Care Provider [phone] Reason for Visit * Reason Onset Date Comments Appointment Request 09/01/2023 Encounter Details Date Type Department Care Team ([facility] st Contact Info) Description 09/01/2023 Telephone [facility] CHC MED & PEDS [address] [place] [address] Mima Rock MD [address] [place] [address] Appointment Request Social History Tobacco Use Types [...] in groin area. Please contact pt at [phone] documented in this encounter Plan of Treatment Upcoming Encounters Date Type Department Care Team (Late st Contact Info) Description 03/20/2025 9:00 AM EDT Office Visit [facility] ADULT DENTAL [address] [place] [address] Polo Frod documented as of this encounter Visit Diagnoses Not on filedocumented in this encounter Care Teams Shank Archer Relationship Specialty Start Date End Date Mima Rock MD [address] [place] [address] PCP - General Family Medicine 08/02/20 documented as of this encounter
--- OUTSIDE RECORDS SUMMARY | 2024-12-21 09:59 | XMS_ITS | Encounter Summary ---
Author Organization [employer] Address 75 [facility] [address] 7t [place] [address] Care Team Providers Care Spice Miller Name Role Phone Mima Rock MD Primary Care Provider [phone] Reason for Visit * Reason Comments Med Refill Encounter Details Date Type Department Care Team ([facility] st Contact Info) Description 10/05/2024 Refill [facility] WALK-IN CENTER [address] [place] [address] Ilene Goins MD [address] [place], [place] [phone] Social History Tobacco Use Types Packs/Day Years [...] the past 12 months, has t he [employer], oil or water company threatened to shut [...] 9:00 AM EDT Office Visit [facility] ADULT DENTAL [address] [place] [address] Polo Ford documented as of this encounter Visit Diagnoses Not on filedocumented in this encounter Care Teams Spice Miller Relationship Specialty Start Date End Date Mima Rock MD [address] [place] [address] PCP - General Family Medicine 08/02/20 documented as of this encounter
--- OUTSIDE RECORDS SUMMARY | 2024-12-21 09:59 | XMS_ITS | Encounter Summary ---
Author Organization [employer] Address 75 [facility] 7t [place] [address] Care Team Providers Care Dowel Sticker Operator Name Role Phone Mima Rock MD Primary Care Provider [phone] Reason for Visit * Reason Comments Med Refill Encounter Details Date Type Department Care Team ([facility] st Contact Info) Description 10/05/2024 Refill [facility] CHC MED & PEDS [address] [place], [place] [phone] Mima Rock MD 505 [place] [address] Social History Tobacco Use Types Packs/Day Years [...] t he electric, gas, oil or water [employer] threatened to shut off services in your [...] Description 03/20/2025 9:00 AM EDT Office Visit [facility] CHC ADULT DENTAL [address] [place] [address] Polo Ford documented as of this encounter Visit Diagnoses Not on filedocumented in this encounter Care Teams Dowel Sticker Operator Relationship Specialty Start Date End Date Mima Rock MD [address] [place] [address] PCP - General Family Medicine 08/02/20 documented as of this encounter
--- OUTSIDE RECORDS SUMMARY | 2024-12-21 09:59 | XMS_ITS | Encounter Summary ---
Author Organization [employer] Address 75 [facility] 7t [place] [address] Care Team Providers Care Gliding Pilot Instructor Name Role Phone Mima Rock MD Primary Care Provider [phone] Reason for Visit * Reason Comments Med Refill Encounter Details Date Type Department Care Team (Late Contact Info) Description 03/24/2023 Refill [facility] MED & PEDS [address] [place] [address] Mima Rock MD 505 [place] [address] Chronic fatigue Social History Tobacco Use Types [...] Upcoming Encounters Date Type Department Care Team ([facility] Contact Info) Description 03/20/2025 9:00 AM EDT Office Visit [facility] ADULT DENTAL [address] [place] [address] Polo Ford documented as of this encounter Visit Diagnoses Diagnosis Chronic fatigue Other malaise and fatigue documented in this encounter Care Teams Gliding Pilot Instructor Relationship Specialty Start Date End Date Mima Rock MD [address] [place] [address] PCP - General Family Medicine 08/02/20 documented as of this encounter
--- OUTSIDE RECORDS SUMMARY | 2024-12-21 09:59 | XMS_ITS | Encounter Summary ---
Author Organization [employer] Address 75 [facility] 7t [place] [address] Care Team Providers Care Taping Machine Operator Name Role Phone Mima Rock MD Primary Care Provider [phone] Reason for Visit * Reason Onset Date Comments Medication Question 10/01/2023 Encounter Details Date Type Department Care Team ([facility] st Contact Info) Description 10/01/2023 Telephone C CHC MED & PEDS [address] [place], [place] [phone] Mima Rock MD 505 [place] [address] Medication Question Social History Tobacco Use Types [...] Metoprolol 25 mg, Atorvastatin, and Penicillin0.4 mg. Candle Wicker unable to confirm Penicillin if any questions please contact pharmacy at [phone]. documented in this encounter Plan of Treatment Upcoming Encounters Date Type Department Care Team (Late st Contact Info) Description 03/20/2025 9:00 AM EDT Office Visit [facility] ADULT DENTAL [address] [place] [address] Polo Ford documented as of this encounter Visit Diagnoses Not on filedocumented in this encounter Care Teams Taping Machine Operator Relationship Specialty Start Date End Date Mima Rock MD [address] [place] [address] PCP - General Family Medicine 08/02/20 documented as of this encounter
--- OUTSIDE RECORDS SUMMARY | 2024-12-21 09:59 | XMS_ITS | Encounter Summary ---
Author Organization [employer] Address 75 [facility] 7t [place] [address] Care Team Providers Care Fondant Puff Maker Name Role Phone Mima Rock MD Primary Care Provider [phone] Reason for Visit * Reason Onset Date Comments Medication Question 01/28/2023 Encounter Details Date Type Department Care Team ([facility] st Contact Info) Description 01/28/2023 Telephone C CHC MED & PEDS [address] [place], [place] [phone] Mima Rock MD 505 [place] [address] Medication Question Social History Tobacco Use Types [...] #1230 - [place] - [address] [facility] documented in this encounter Plan of Treatment Upcoming Encounters Date Type Department Care Team (Late st Contact Info) Description 03/20/2025 9:00 AM EDT Office Visit [facility] ADULT DENTAL [address] [place] [address] Polo Ford documented as of this encounter Visit Diagnoses Diagnosis Intertrigo Other specified erythematous condition documented in this encounter Care Teams Fondant Puff Maker Relationship Specialty Start Date End Date Mima Rock MD [address] [place] [address] PCP - General Family Medicine 08/02/20 documented as of this encounter
--- OUTSIDE RECORDS SUMMARY | 2024-12-21 09:59 | XMS_ITS | Encounter Summary ---
Author Organization [employer] Address 75 [facility] 7t [place] [address] Care Team Providers Care Continuous Drier Operator Name Role Phone Mima Rock MD Primary Care Provider [phone] Reason for Visit * Reason Onset Date Comments Nurse Triage 05/12/2023 Encounter Details Date Type Department Care Team (Late st Contact Info) Description 05/12/2023 Telephone [facility] CHC MED & PEDS [address] [place], [place] [phone] Mima Rock MD 505 [place] [address] Nurse Triage Social History Tobacco Use Types [...] Pt requests apt tomorrow declines offer for [facility] today. Pt is advised to come to [facility] tomorrow morning opens 830am-400pm. Pt agrees with [...] Description 03/20/2025 9:00 AM EDT Office Visit [facility] ADULT DENTAL [address] [place] [address] Polo Ford documented as of this encounter Visit Diagnoses Not on filedocumented in this encounter Care Teams Continuous Drier Operator Relationship Specialty Start Date End Date Mima Rock MD [address] [place] [address] PCP - General Family Medicine 08/02/20 documented as of this encounter
--- OUTSIDE RECORDS SUMMARY | 2024-12-21 10:00 | XMS_ITS | Encounter Summary ---
Author Organization [employer] Address 75 [facility] 7t [place] [address] Care Team Providers Care Clerk Entry Level Name Role Phone Mima Rock MD Primary Care Provider Encounter Details Date Type Department Care Team (Late st Contact Info) Description 08/30/2022 Orders Only [facility] MEDICINE [address] [place], [place] [phone] Norma Nevarez MD [address] [place] [address] Peripheral artery disease (CMS/HCC) (Primary Dx) Social [...] [facility] [address] [place] [address] Polo Ford documented as of this encounter Visit Diagnoses Diagnosis Peripheral artery disease (CMS/HCC)- Primary documented in this encounter Care Teams Clerk Entry Level Relationship Specialty Start Date End Date Mima Rock MD [address] [place] [phone] PCP - General Family Medicine 08/02/20 documented as of this encounter
--- OUTSIDE RECORDS SUMMARY | 2024-12-21 10:00 | XMS_ITS | Encounter Summary ---
Author Organization [employer] Address 75 [facility] 7t [place] [address] Care Team Providers Care Aircraft Instrument Repairer Name Role Phone Mima Rock MD Primary Care Provider [phone] Encounter Details Date Type Department Care Team (Late st Contact Info) Description 08/31/2022 Orders Only [facility] MEDICINE [address] [place] [address] Mima Rock MD 505 [place] [address] Claudication of both lower extremities (CMS/HCC) (Primary [...] [facility] [address] [place] [address] Polo Ford documented as of this encounter Visit Diagnoses Diagnosis Claudication of both lower extremities (CMS/HCC)- Primary documented in this encounter Care Teams Aircraft Instrument Repairer Relationship Specialty Start Date End Date Mima Rock MD [address] [place] [address] PCP - General Family Medicine 08/02/20 documented as of this encounter
--- OUTSIDE RECORDS SUMMARY | 2024-12-21 10:00 | XMS_ITS | Encounter Summary ---
Author Organization [employer] Address 75 [facility] 7t [place] [address] Care Team Providers Care Saw Cleaner Name Role Phone Mima Rock MD Primary Care Provider [phone] Encounter Details Date Type Department Care Team (Late st Contact Info) Description 12/08/2024 Orders Only [facility] External Provider, [facility] Social History Tobacco Use Types Packs/Day Years [...] Description 03/20/2025 9:00 AM EDT Office Visit [facility] ADULT DENTAL [address] [place] [address] Polo Ford documented as of this encounter Procedures Procedure Name Priority Date/Time Associated Diagnosis Comments LDCT LUNG SCREENING Routine 12/08/2024 9 :46 AM EDT documented in this encounter Results * CT Lung Screening Low dose (12/08/2024 9:46 AM EDT) Anatomical Region Laterality Modality Lung Computed Tomogra phy 12/08/2024 9:46 AM EDT Narrative 12/08/2024 11:02 AM EDT ? [facility] ?[address] ?[place] [address] ? CT Scan Report ? Signed ? Patient: Noe Amaya ?MR#: [id number] ?? [id number] ? : 1955 ?Acct:[id number] ? Age/Sex: 69 / M ?ADM Date: 12/08/24 ? Loc: HO.CT ? Attending Dr: Betsy Uribe PA-C ? Ordering Physician: Betsy Uribe PA-C ?? Date of Service: 12/08/24 ?? Procedure(s): CT lung screening ?? Accession Number(s): [id number] ? cc: Betsy Uribe PA-C; Mima Rock MD ? Report Number: ?? [id number]: Total DLP = ?? 52.00 mGy-cm ?? [...] Luis Cat MD ??12/08/2024 10:59 AM EDT ?? RP ? Dictated By: ?Jose Luis Cat MD ? Signed By: ?<Electronically signed by Jose Luis Cat MD in OV> ?03/14/25 1059 ? DD/ 0946 ? TD/TT: 03/14/25 1013 ? Licensed Social Worker: ? Procedure Note Donotuseinterpreter, Image - 12/08/[address] [address] [address] Scan Report Signed Patient: Noe Amaya [facility]#: [id number] : 1955cct:[id number] Age/Sex: 69 / MADM Date: 12/08/24 Loc: HO.CT Attending Dr: Betsy Uribe PA-C Ordering Physician: Betsy Uribe PA-C Date of Service: 12/08/24 Procedure(s): CT lung screening Accession Number(s): [id number] cc: Betsy Uribe PA-C; Mima Rock MD Report Number: [id number]: Total DLP = 52.00 mGy-cm EXAMINATION: CT [...] Luis Cat MD 12/08/2024 10:59 AM EDT RP Dictated By: Jose Luis Cat MD Signed By: <Electronically signed by Jose Luis Cat MD in OV> 12/08/24 1059 DD/ 0946 TD/TT: 12/08/24 1013 Licensed Social Worker: [facility] External Provider IMG CT PROCEDURES Final Result documented in this encounter Visit Diagnoses Not on filedocumented in this encounter Care Teams Saw Cleaner Relationship Specialty Start Date End Date Mima Rock MD [address] [place] [address] PCP - General Family Medicine 08/02/20 documented as of this encounter
--- OUTSIDE RECORDS SUMMARY | 2024-12-21 10:00 | XMS_ITS | Encounter Summary ---
Author Organization [employer] Address 75 [facility] 7t [place] [address] Care Team Providers Care Disk Sander Name Role Phone Mima Rock MD Primary Care Provider [phone] Encounter Details Date Type Department Care Team (Latest Contact Info) Description 05/18/2022 Abstract [facility] CONVERSION[facility] Dental, Provider, DDS Social History [...] [facility] [address] [place] [address] Polo Ford documented as of this encounter Visit Diagnoses Not on filedocumented in this encounter Care Teams Disk Sander Relationship Specialty Start Date End Date Mima Rock MD [address] [place] [address] PCP - General Family Medicine 08/02/20 documented as of this encounter
== END 2024-12-21 10:15 | disposition home or self-care (01) ==
PROVIDERS: PCP Student in an Organized Health Care Education/Training Program; Visit Provider Physician Assistant
DX: M70.52 Other bursitis of knee, left knee (principal)

== ENCOUNTER → 2024-12-21 08:59 | Outpatient (BNVA) | payer OTHER, SELFPAY | PROVIDERS: PCP Student in an Organized Health Care Education/Training Program; Visit Provider Physician Assistant | DX: M70.52 Other bursitis of knee, left knee (principal) | CPT/HCPCS: 99202 ==

== ENCOUNTER 2025-01-11 08:36 | Outpatient (REF) | payer OTHER, SELFPAY ==
--- OUTSIDE RECORDS SUMMARY | 2025-01-11 11:01 | XMS_ITS | Encounter Summary ---
Author Organization [employer] Address [address] [facility] [address] 7t [place] [address] Care Team Providers Care Cna Hospice Name Role Phone Mima Rock MD Primary Care Provider [phone] Reason for Visit * Reason Comments Med Refill Encounter Details Date Type Department Care Team ([facility] st Contact Info) Description 10/05/2024 Refill [facility] [address] [place] [address] Ilene Goins MD [address] [place], [place] [phone] Social History Tobacco Use Types Packs/Day Years [...] the past 12 months, has t he [employer] oil or water company threatened to shut [...] [facility] AD[facility] [address] [place] [address] Polo Ford documented as of this encounter Visit Diagnoses Not on filedocumented in this encounter Care Teams Cna Hospice Relationship Specialty Start Date End Date Mima Rock MD [address] [place] [address] PCP - General Family Medicine 08/02/20 documented as of this encounter
--- OUTSIDE RECORDS SUMMARY | 2025-01-11 11:01 | XMS_ITS | Encounter Summary ---
Author Organization [employer] Address [address] [facility] 7t [place] [address] Care Team Providers Care Surgical Supply Assistant Name Role Phone Mima Rock MD Primary Care Provider [phone] Reason for Visit * Reason Comments Med Refill Encounter Details Date Type Department Care Team (Late Contact Info) Description 03/24/2023 Refill [facility] MED & PEDS 505 [place] [address] Mima Rock MD 505 [place] [address] Chronic fatigue Social History Tobacco Use Types [...] Upcoming Encounters Date Type Department Care Team ([facility] Contact Info) Description 03/20/2025 9:00 AM EDT Office Visit [facility] ADULT [facility] 505 [place] [address] Polo Ford documented as of this encounter Visit Diagnoses Diagnosis Chronic fatigue Other malaise and fatigue documented in this encounter Care Teams Surgical Supply Assistant Relationship Specialty Start Date End Date Mima Rock MD [address] [place] [address] PCP - General Family Medicine 08/02/20 documented as of this encounter
--- OUTSIDE RECORDS SUMMARY | 2025-01-11 11:01 | XMS_ITS | Encounter Summary ---
Author Organization [employer] Address [address] [facility] 7t [place] [address] Care Team Providers Care Masonry Contractor Name Role Phone Mima Rock MD Primary Care Provider [phone] Reason for Visit * Reason Comments Med Refill Encounter Details Date Type Department Care Team ([facility] st Contact Info) Description 11/22/2023 Refill [facility] MED & PEDS 505 [place] [address] Ellie Ford MD 505 [place] [address] [employer] Social History Tobacco Use Types Packs/Day [...] [facility] [address] [place] [address] Polo Ford documented as of this encounter Visit Diagnoses Diagnosis Intertrigo Other specified erythematous condition documented in this encounter Care Teams Masonry Contractor Relationship Specialty Start Date End Date Mima Rock MD [address] [place] [address] PCP - General Family Medicine 08/02/20 documented as of this encounter
--- OUTSIDE RECORDS SUMMARY | 2025-01-11 11:01 | XMS_ITS | Encounter Summary ---
Author Organization [employer] Address [address] [facility] 7t [place] [address] Care Team Providers Care Hospice Bereavement Coordinator Name Role Phone Mima Rock MD Primary Care Provider [phone] Reason for Visit * Reason Onset Date Comments Appointment Request 09/01/2023 Encounter Details Date Type Department Care Team ([facility] st Contact Info) Description 09/01/2023 Telephone [facility] CH[facility] MED & PEDS 505 [place] [address] Mima Rock MD 505 [place] [address] Appointment Request Social History Tobacco Use Types [...] in groin area. Please contact pt at [phone] documented in this encounter Plan of Treatment Upcoming Encounters Date Type Department Care Team (Late st Contact Info) Description 03/20/2025 9:00 AM EDT Office Visit [facility] [address] [place] [address] Polo Ford documented as of this encounter Visit Diagnoses Not on filedocumented in this encounter Care Teams Hospice Bereavement Coordinator Relationship Specialty Start Date End Date Mima Rock MD [address] [place] [address] PCP - General Family Medicine 08/02/20 documented as of this encounter
--- OUTSIDE RECORDS SUMMARY | 2025-01-11 11:01 | XMS_ITS | Encounter Summary ---
Author Organization [employer] Address 75 [facility] 7t [place] [address] Care Team Providers Care Coal Bagger Name Role Phone Mima Rock MD Primary Care Provider [phone] Reason for Visit * Reason Comments Med Refill Encounter Details Date Type Department Care Team (Late Contact Info) Description 2023 Refill [facility] MED & PEDS 505 [place] [address] Mima Rock MD 505 [place] [address] Social History Tobacco Use Types Packs/Day Years [...] Description 03/20/2025 9:00 AM EDT Office Visit [facility] ADULT DENTAL 505 [place] [address] Polo Ford documented as of this encounter Visit Diagnoses Not on filedocumented in this encounter Care Teams Coal Bagger Relationship Specialty Start Date End [place] [address] PCP - General Family Medicine 08/02/20 documented as of this encounter
--- OUTSIDE RECORDS SUMMARY | 2025-01-11 11:01 | XMS_ITS | Encounter Summary ---
Author Organization [employer] Address 75 [facility] 7t [place] [address] Care Team Providers Care Gasket Former Name Role Phone Mima Rock MD Primary Care Provider [phone] Encounter Details Date Type Department Care Team (Latest Contact Info) Description 05/18/2022 Abstract [facility] CONVERSIONS Dental, Provider, DDS Social History [...] [facility] ADULT DENTAL [address] [place] [address] Polo Ford documented as of this encounter Visit Diagnoses Not on filedocumented in this encounter Care Teams Gasket Former Relationship Specialty Start Date End Date Mima Rock MD [address] [place] [address] PCP - General Family Medicine 08/02/20 documented as of this encounter
--- OUTSIDE RECORDS SUMMARY | 2025-01-11 11:01 | XMS_ITS | Encounter Summary ---
Author Organization [employer] Address 75 [facility] 7t [place] [address] Care Team Providers Care Health Administration Teacher Name Role Phone Mima Rock MD Primary Care Provider [phone] Reason for Visit * Reason Onset Date Comments Nurse Triage 05/12/2023 Encounter Details Date Type Department Care Team (Late st Contact Info) Description 05/12/2023 Telephone [facility] 505 [place], [place] [phone] Mima Rock MD 505 [place] [address] Nurse Triage Social History Tobacco Use Types [...] Pt requests apt tomorrow declines offer for [facility] today. Pt is advised to come to [facility] tomorrow morning opens 830am-400pm. Pt agrees with [...] become worse * Telephone Encounter - Lenora Guatam - 05/12/2023 2:39 PM EDT Symptoms: Weakness, [...] Office Visit [facility] ADULT [facility] [address] [place] [address] Polo Ford documented as of this encounter Visit Diagnoses Not on filedocumented in this encounter Care Teams Health Administration Teacher Relationship Specialty Start Date End Date Mima Rock MD [address] [place] [address] PCP - General Family Medicine 08/02/20 documented as of this encounter
--- OUTSIDE RECORDS SUMMARY | 2025-01-11 11:01 | XMS_ITS | Encounter Summary ---
Author Organization [employer] Address 75 [facility] 7t [place] [address] Care Team Providers Care Dental Lab Technician Name Role Phone Mima Rock MD Primary Care Provider Encounter Details Date Type Department Care Team (Late st Contact Info) Description 08/30/2022 Orders Only [facility] MEDICINE [address] [place], [place] [phone] Norma Nevarez MD [address] [place] [address] Peripheral artery disease (CMS/HCC) (Primary Dx) Social [...] Description 03/20/2025 9:00 AM EDT Office Visit [facility]C ADULT DENTAL [address] [place] [address] Polo Ford documented as of this encounter Visit Diagnoses Diagnosis Peripheral artery disease (CMS/HCC)- Primary documented in this encounter Care Teams Dental Lab Technician Relationship Specialty Start Date End Date Mima Rock MD [address] [place] [phone] PCP - General Family Medicine 08/02/20 documented as of this encounter
--- OUTSIDE RECORDS SUMMARY | 2025-01-11 11:01 | XMS_ITS | Encounter Summary ---
Author Organization [employer] Address [address] [facility] 7t [place] [address] Care Team Providers Care Life Manager Name Role Phone Mima Rock MD Primary Care Provider [phone] Encounter Details Date Type Department Care Team (Late st Contact Info) Description 08/31/2022 Orders Only [facility] MEDICINE 230 [place] [address] Mima Rock MD 505 [place] [address] Claudication of both lower extremities (CMS/HCC) (Primary [...] Description 03/20/2025 9:00 AM EDT Office Visit [facility] ADULT DENTAL 505 [place] [address] Polo Ford documented as of this encounter Visit Diagnoses Diagnosis Claudication of both lower extremities (CMS/HCC)- Primary documented in this encounter Care Teams Life Manager Relationship Specialty Start Date End Date Mima Rock MD 230 [place] [address] PCP - General Family Medicine 08/02/20 documented as of this encounter
--- OUTSIDE RECORDS SUMMARY | 2025-01-11 11:01 | XMS_ITS | Encounter Summary ---
Author Organization [employer] Address 75 [facility] 7t [place] [address] Care Team Providers Care Instrumentation Technologist Name Role Phone Mima Rock MD Primary Care Provider [phone] Reason for Visit * Reason Comments Med Refill Encounter Details Date Type Department Care Team ([facility] st Contact Info) Description 11/02/2023 Refill [facility] MED & PEDS 505 [place] [address] Ellie Ford MD 505 [place] [address] [employer] Social History Tobacco Use Types Packs/Day [...] [facility] [address] [place] [address] Polo Ford documented as of this encounter Visit Diagnoses Diagnosis Intertrigo Other specified erythematous condition documented in this encounter Care Teams Instrumentation Technologist Relationship Specialty Start Date End Date Mima Rock MD [address] [place] [address] PCP - General Family Medicine 08/02/20 documented as of this encounter
--- OUTSIDE RECORDS SUMMARY | 2025-01-11 11:01 | XMS_ITS | Encounter Summary ---
Author Organization [employer] Address 75 [facility] 7t [place] [address] Care Team Providers Care Dry Transfer Worker Name Role Phone Mima Rock MD Primary Care Provider [phone] Reason for Visit * Reason Comments Med Change Request Encounter Details Date Type Department Care Team ([facility] st Contact Info) Description 10/04/2024 Refill [facility] 230 [place], [place] [phone] Humberto Mooney MD [address] [place], [place] [phone] Social History Tobacco Use Types Packs/Day Years [...] Description 03/20/2025 9:00 AM EDT Office Visit [facility] ADULT DENTAL [address] [place] [address] Polo Ford documented as of this encounter Visit Diagnoses Not on filedocumented in this encounter Care Teams Dry Transfer Worker Relationship Specialty Start Date End Date Mima Rock MD [address] [place] [address] PCP - General Family Medicine 08/02/20 documented as of this encounter
--- OUTSIDE RECORDS SUMMARY | 2025-01-11 11:01 | XMS_ITS | Encounter Summary ---
Author Organization [employer] Address 75 [facility] 7t [place] [address] Care Team Providers Care Egg Processing Supervisor Name Role Phone Mima Rock MD Primary Care Provider [phone] Reason for Visit * Reason Onset Date Comments Medication Question 10/01/2023 Encounter Details Date Type Department Care Team ([facility] st Contact Info) Description 10/01/2023 Telephone C [facility] 505 [place], [place] [phone] Mima Rock MD 505 [place] [address] Medication Question Social History Tobacco Use Types [...] from 10/01 11:39. To contact Mitzi at [phone] Rock * Telephone Encounter - [...] all meds * Telephone Encounter - Radha Castñaeda RN - 10/01/2023 2:55 PM EST Please [...] - 10/01/2023 11:29 AM EST Tc from [facility] requesting a call in regards to some [...] medications doing the same thing. Please contact [phone] documented in this encounter Plan of Treatment Upcoming Encounters Date Type Department Care Team (Late st Contact Info) Description 03/20/2025 9:00 AM EDT Office Visit [facility] ADULT DENTAL [address] [place] [address] Polo Ford documented as of this encounter Visit Diagnoses Not on filedocumented in this encounter Care Teams Egg Processing Supervisor Relationship Specialty Start Date End Date Mima Rock MD [address] [place] [address] PCP - General Family Medicine 08/02/20 documented as of this encounter
--- OUTSIDE RECORDS SUMMARY | 2025-01-11 11:01 | XMS_ITS | Clinical Summary ---
Author Organization [employer] Address 75 [facility] 7t [place] [address] Care Team Providers Care Bus Van Driver Name Role Phone Mima Rock MD Primary Care Provider [phone] Allergies No known active allergies Medications nicotine [...] Type Department Care Team Description 12/27/2024 Refill [facility] [address] [place] [address] Humberto Mooney MD 12/24/2024 Refill [facility] MED & PEDS 505 [place] [address] Mima Rock MD Primary hypertension 12/23/2024 Refill [facility] [address] [place] [address] Humberto Mooney MD 12/08/2024 Orders Only [facility] External Provider, [facility] 11/01/2024 8:30 AM EST Office Visit [facility] ADULT DENTAL 505 [place] [address] Marti Kerns Dental caries (Primary Dx) 10/28/2024 Refill [facility] [address] [place] [address] Humberto Mooney MD from Last 3 Months [...] AM EDT Office Visit [facility] ADULT DENTAL [address] [place] [address] Polo Ford Health Maintenance Due Date Last [...] EDT Narrative 12/08/2024 11:02 AM EDT ? [facility] ?[address] ?[place] [address] ? CT Scan Report ? Signed ? Patient: Jose Luis,One N ?MR#: [id number] ?? 164 ? : 1955 ?Acct:[id number] ? Age/Sex: 69 / M ?ADM Date: 12/08/24 ? Loc: HO.CT ? Attending Dr: Betsy Uribe PA-C ? Ordering Physician: Betsy Uribe PA-C ?? Date of Service: 12/08/24 ?? Procedure(s): CT lung screening ?? Accession Number(s): [id number] ? cc: Betsy Uribe PA-C; Mima Rock MD ? Report Number: ?? [id number]: Total DLP = ?? 52.00 mGy-cm ?? [...] DD/ 0946 ? TD/TT: 12/08/24 1013 ? Drag Car Racer: ? Procedure Note Daniel Brock - 12/08/[address] [place] [address] [address] Scan Report Signed Patient: Noe Amaya NMR#: [id number] 164 : 1955cct:[id number] Age/Sex: 69 / MADM Date: 12/08/24 Loc: .CT Attending Dr: Betsy Uribe PA-C Ordering Physician: Betsy Uribe PA-C Date of Service: 12/08/24 Procedure(s): CT lung screening Accession Number(s): [id number] cc: Betsy Uribe PA-C; Mima Rock MD Report Number: [id number]: Total DLP = 52.00 mGy-cm EXAMINATION: CT [...] 12/08/24 1059 DD/ 0946 TD/TT: 12/08/24 1013 Drag Car Racer: [facility] External Provider IMG CT PROCEDURES Final Result * [facility] Lower Extremity Arterial Duplex Bilateral With Sahara (10/13/2024 7:51 AM EST) 10/13/2024 7:51 AM EST Narrative [facility] - 10/13/2024 7:52 AM EST ? [facility] ?[address] ?[place] [address] ? Ultrasound Report ? Signed ? Patient: Jose Luis,Noe N ?MR#: [id number] ?? 164 ? : 1955 ?Acct:[id number] ? Age/Sex: 69 / M ?ADM Date: 01/16/25 ? Loc: HO.US ? Attending Dr: Joseph Mcclain MD ? Ordering Physician: Joseph Mcclain MD ?? Date of Service: 10/12/24 ?? Procedure(s): US arterial duplex BI w/ SAHARA ?? Accession Number(s): [id number] ? cc: Joseph Mcclain MD; Mima Rock [...] DD/ 0751 ? TD/TT: 10/13/24 0751 ? Drag Car Racer: ? Procedure Note Daniel Brock - 10/13/[address] [address] Ultrasound Report Signed Patient: Noe Amaya NMR#: [id number] 164 : 1955cct:[id number] Age/Sex: 69 / MADM Date: 10/12/24 Loc: HO.US Attending Dr: Joseph Mcclain MD Ordering Physician: Joseph Mcclain MD Date of Service: 10/12/24 Procedure(s): US arterial duplex BI w/ SAHARA Accession Number(s): [id number] cc: Joseph Mcclain MD; Mima Rock MD [...] OV> 10/13/24 0752 DD/ 0 TD/TT: 10/13/24750 Drag Car Racer: [facility] External Provider CV VASC ULAR PROCEDURES Edited Result - Final [facility] [address] [place] [phone] * (ABNORMAL) Lipid Panel, Standard (08/18/2024 8:38 AM EST) Triglycerides 141 <150 mg/dL [facility] Comment:Desirable Triglyceri de: less than 150 mg/dLBorderline High Triglyceride 150-199 mg/dLHigh Triglyceride: 200-499 mg/dLVery High Triglyceride: greater than or equal to 5OO mg/dL Cholesterol 181 <200 mg/dL [facility] Comment:Desirable Cholestero l: less than 200 mg/dLBorderline High Cholesterol: 200-239 mg/dLHigh Cholesterol: greater than 239 mg/dL LDL Cholesterol Calculated 105(H) <100 mg/dL [facility] Comment:Desirable LDL: less than 100 mg/dLNear Optimal/Above Optimal LDL: 110- 129 mg/dLBorderline High LDL: 130-159 mg/dLHigh LDL: 160-189 mg/dLVery High LDL: greater than or equal to 190 mg/dL HDL Cholesterol 48 >40 mg/dL [facility] Comment:Desirable HDL: great er than 40 mg/dL Note: This HDL assay may give artificially low results in patients with liver disease. Blood Venous blood specimen / Unknown 08/18/2024 8:38 AM EST 08/18/2024 2:10 PM EST us Mima Rock MD LAB BLOOD ORDERABLES Final Resul t [facility] [address] [place] [address] [phone] from Last 3 Months or Most Recently Relevant to Health Maintenance [place] [address] [place] [address] - MTO * Guarantor: Noe Amaya Account Type Relation to Patient Date of Phone Billing Address Dental Self 1955 [address] [facility] [address] [place] [address] [facility] Care Teams Bus Van Driver Relationship Specialty Start Date End Date Mima Rock MD [address] [place] [address] PCP - General Family Medicine 08/02/20
--- OUTSIDE RECORDS SUMMARY | 2025-01-11 11:01 | XMS_ITS | Encounter Summary ---
Author Organization [employer] Address 75 [facility] 7t [place] [address] Care Team Providers Care Congregational Care Pastor Name Role Phone Mima Rock MD Primary Care Provider [phone] Reason for Visit * Reason Onset Date Comments Medication Question 01/28/2023 Encounter Details Date Type Department Care Team ([facility] st Contact Info) Description 01/28/2023 Telephone C [facility] 505 [place], [place] [phone] Mima Rock MD 505 [place] [address] Medication Question Social History Tobacco Use Types [...] - [place] LONG - [address] [facility] documented in this encounter Plan of Treatment Upcoming Encounters Date Type Department Care Team (Late st Contact Info) Description 03/20/2025 9:00 AM EDT Office Visit [facility] ADULT DENTAL [address] [place] [address] Polo Ford documented as of this encounter Visit Diagnoses Diagnosis Intertrigo Other specified erythematous condition documented in this encounter Care Teams Congregational Care Pastor Relationship Specialty Start Date End Date Mima Rock MD [address] [place] [address] PCP - General Family Medicine 08/02/20 documented as of this encounter
--- OUTSIDE RECORDS SUMMARY | 2025-01-11 11:01 | XMS_ITS | Encounter Summary ---
Author Organization [employer] Address [address] [facility] 7t [place] [address] Care Team Providers Care Surgeon Partner Name Role Phone Mima Rock MD Primary Care Provider [phone] Reason for Visit * Reason Onset Date Comments Medication Question 10/01/2023 Encounter Details Date Type Department Care Team ([facility] st Contact Info) Description 10/01/2023 Telephone C [facility] [address] [place], [place] [phone] Mima Rock MD [address] [place] [address] Medication Question Social History Tobacco Use Types [...] Metoprolol 25 mg, Atorvastatin, and Penicillin0.4 mg. High Lift Driver unable to confirm Penicillin if any questions please contact pharmacy at [phone]. documented in this encounter Plan of Treatment Upcoming Encounters Date Type Department Care Team (Late st Contact Info) Description 03/20/2025 9:00 AM EDT Office Visit [facility] ADULT DENTAL [address] [place] [address] Polo Ford documented as of this encounter Visit Diagnoses Not on filedocumented in this encounter Care Teams Surgeon Partner Relationship Specialty Start Date End Date Mima Rock MD [address] [place] [phone] PCP - General Family Medicine 08/02/20 documented as of this encounter
--- OUTSIDE RECORDS SUMMARY | 2025-01-11 11:01 | XMS_ITS | Encounter Summary ---
Author Organization [employer] Address 75 [facility] 7t [place] [address] Care Team Providers Care Dance Artist Name Role Phone Mima Rock MD Primary Care Provider Reason for Visit * Reason Comments Med Refill Encounter Details Date Type Department Care Team ([facility] st Contact Info) Description 10/05/2024 Refill [facility] MED & PEDS [address] [place], [place] [phone] Mima Rock MD [address] [place] [address] Social History Tobacco Use Types Packs/Day Years [...] t he electric, gas, oil or water [employer] threatened to shut off services in your [...] Description 03/20/2025 9:00 AM EDT Office Visit [facility]C ADULT DENTAL [address] [place] [address] Polo Ford documented as of this encounter Visit Diagnoses Not on filedocumented in this encounter Care Teams Dance Artist Relationship Specialty Start Date End Date Mima Rock MD [address] [place] [id number] PCP - General Family Medicine 08/02/20 documented as of this encounter
[2025-01-11 14:54] LABS: Influenza A PCR NEGATIVE (Negative); Influenza B PCR NEGATIVE (Negative); Resp Syncy Virus RNA Qual PCR NEGATIVE (Negative); SARS COV2 PCR INHOUSE NEGATIVE (Negative)
[2025-01-12 06:23] LABS: Lyme Abs Screen <0.90 index
== END 2025-01-11 08:37 | disposition home or self-care (01) ==
LOC: HO.LAB 08:36
PROVIDERS: PCP Student in an Organized Health Care Education/Training Program; Visit Provider Physician Assistant
DX: R09.89 Other specified symptoms and signs involving the circulatory and respiratory systems (principal); R53.83 Other fatigue; M25.569 Pain in unspecified knee; R50.9 Fever, unspecified
CPT/HCPCS: 0241U; 36415; 86617; 86618; 99212

== ENCOUNTER 2025-01-11 08:36 | Outpatient (AMB) | payer OTHER, SELFPAY ==
--- NOTE | 2025-01-11 08:54 | AM.OFFWIN_ITS ---
Intake Vital Signs 01/11/25 08:56 Weight 176 lb BP 118/74 Blood Pressure Location Rt brachial Position Sitting Pulse 76 Pulse Source Pulse Oximeter Pulse Oximetry (%) 98 Oxygen Delivery Method Room Air Intake Visit Reasons: EP-fatigue, stress Intake Note: Patient here for fatigue, lack of energy and weakness in legs that started wednesday. Patient Tobacco Use Status: Current everyday Tobacco user Allergies No Known Allergies Allergy (Verified 01/11/25 08:56) Do you need a note to return to daycare/school/sports/work: No HPI HPI Comments History of Present Illness Details History - The patient is a 69-year-old male pres enting with fatigue and weakness in his legs for a few weeks. - Decreased energy levels are noted, wit h fatigue requiring afternoon naps, formerly experienced as lively and electric. - A previous history of pneumonia and CO VID-19, with symptoms similar to past infection. - Fatigue has affected his daily activit ies and has shown progression over time. - Sporadic fevers have occurred, mitigat ed by thermostat changes, and subsided recently. - Knee pain due to bursitis is managed w ith wraps and NSAIDs, showing some improvement over time. - Lacks respiratory symptoms such as cou gh or congestion; no headaches present. - No current/recent evidence of rashes, tick bites, does not spend a lot of time outdoors. - Received this year's flu vaccination. - Denied any personal or family history of blood clots or arrhythmias, is currently managed on Plavix. Physical Exam General: Cooperative, healthy appearing, comfortable and no acute distress Orientation/consciousness: Patient oriented x3 Limitations: No limitations Head: Normal to inspection Ears: Hearing grossly normal bilaterally, external ears normal and TM's normal bilaterally Nose: Normal external nose present, Normal nares present and No nasal discharge present Face and sinus: Normal facial exam and Yes sinuses nontender Mouth: Normal oral and palatal mucosa present and moist mucous membranes Throat: Yes tonsils normal, Yes uvula midline. Posterior oropharynx erythema with cobblestoning Eyes: Appearance normal, both eyes and all related structures Neck: Normal visual inspection Respiratory: Clear to auscultation bilaterally. Normal respiratory effort, able to speak in complete sentences, Actively coughing, no respiratory distress, not tachypneic, no tripod positioning and no use of accessory muscles Cardiovascular: Regular rate and rhythm. Normal S1 and S2 Skin: No rashes or lesions noted Neuro: Patient oriented x3 Extremities: Normal to inspection and Yes no clubbing, cyanosis or edema, 5/5 strength in lower extremities, sensation of lower extremities in tact PFSH Medical History (Updated 01/11/25 @ 09:48 by Vi Valdez PA-C) Tubular adenoma of colon PAD (peripheral artery disease) Elevated PSA BPH (benign prostatic hyperplasia) Nicotine dependence, cigarettes, uncomplicated COVID-19 Anxiety HTN (hypertension) Surgical History History of atherectomy History of colonoscopy S/P cardiac cath S/P angiogram of extremity Family History Father Hx of colon cancer, stage IV Hx of diabetes insipidus Mother Family history of high blood pressure Social History (Updated 12/08/24 @ 09:43 by Betsy Uribe PA-C) Household Members: None Are you a primary wound care physician to a significant other at home: No Do you presently have visiting nurse or other home services: No Alcohol intake: current Alcohol intake frequency: holidays/special occasions only Patient Tobacco Use Status: Current everyday Tobacco user Tobacco use type: Cigarette Cigarette Packs Per Day: 0.5 Cigarettes Per Day: 10 Years Smoked: (onset 17yo, 1/2ppd x 52yrs 25+PYH) Second Hand Smoke Exposure: No Current occupational status: unemployed Current occupation: left handed Review of Systems Const All systems reviewed & are unremarkable except as noted in HPI and below Physical Exam Vital Signs: Last Vital Signs Pulse 76 01/11/25 08:56 BP 118/74 01/11/25 08:56 Pulse Ox 98 01/11/25 08:56 Oxygen Delivery Method Room Air 01/11/25 08:56 Assessment & Plan Assessment & Plan (1) Fatigue: Code(s): R53.83 - Other fatigue Qualifiers: Fatigue type: unspecified Qualified Code(s): R53.83 - Other fatigue Plan: VSS, pt well appearing and PE unremarkable, strength and sensation intact in bl LE. I plan to assess the patient's ongoing fatigue with appropriate testing, including Lyme disease evaluation considering he has had knee pain that started around the same time. Covid, influenza and RSV testing will be conducted despite the minimal likelihood of positive results. Bursitis management involves michi nued NSAID use and lifestyle adjustments with rest and ice application to support symptom resolution. Consideration of orthopedic follow-up should improvements stagnate. Attention to cobblestoning in throat suggests potential seasonal allergies, which will be monitored, can add daily allergy pill. Follow- up with primary care for exhaustive evaluations of thyroid or obscure causes should symptoms endure. The approach to fatigue remains symptomatic management until a precise etiology is identified through thorough testing. Patient was informed and verbally consented to the use of an ambient scribe for clinic note documentation during this visit Orders: Orders Lyme IgG/IgM w/reflex to WB Today R53.83 - Other fatigue SARS-CoV2/FLU/RSV Today R09.89 - Other specified symptoms and signs involving the circulatory and respiratory systems Coding Level of Care Code New Pt Level 4 (26737) Diagnoses Fatigue, unspecified type R53.83 Fatigue type: unspecified
[2025-01-11 08:56] VITALS: BP 118/74; PULSE 76; O2SAT 98
--- OUTSIDE RECORDS SUMMARY | 2025-01-11 09:07 | XMS_ITS | Encounter Summary ---
Author Organization [employer] Address 75 [facility] 7t [place] [address] Care Team Providers Care Group President Name Role Phone Mima Rock MD Primary Care Provider [phone] Reason for Visit * Reason Comments Med Refill Encounter Details Date Type Department Care Team (Late Contact Info) Description 03/24/2023 Refill [facility] MED & PEDS [address] [place] [address] Mima Rock MD [address] [place] [address] Chronic fatigue Social History Tobacco Use Types [...] Upcoming Encounters Date Type Department Care Team ([facility] Contact Info) Description 03/20/2025 9:00 AM EDT Office Visit [facility] ADULT DENTAL [address] [place] [address] Polo Ford documented as of this encounter Visit Diagnoses Diagnosis Chronic fatigue Other malaise and fatigue documented in this encounter Care Teams Group President Relationship Specialty Start Date End Date Mima Rock MD [address] [place] [address] PCP - General Family Medicine 08/02/20 documented as of this encounter
--- OUTSIDE RECORDS SUMMARY | 2025-01-11 09:07 | XMS_ITS | Encounter Summary ---
Author Organization [employer] Address 75 [facility] 7t [place] [address] Care Team Providers Care Recycling Center Operator Name Role Phone Mima Rock MD Primary Care Provider [phone] Reason for Visit * Reason Comments Med Refill Encounter Details Date Type Department Care Team ([facility] st Contact Info) Description 11/22/2023 Refill [facility] CHC MED & PEDS [address] [place] [address] Ellie Ford MD [address] [place] [address] Intertrigo Social History Tobacco Use Types Packs/Day [...] 9:00 AM EDT Office Visit [facility] ADULT DENTAL [address] [place] [address] Polo Ford documented as of this encounter Visit Diagnoses Diagnosis Intertrigo Other specified erythematous condition documented in this encounter Care Teams Recycling Center Operator Relationship Specialty Start Date End Date Mima Rock MD [address] [place] [address] PCP - General Family Medicine 08/02/20 documented as of this encounter
--- OUTSIDE RECORDS SUMMARY | 2025-01-11 09:07 | XMS_ITS | Clinical Summary ---
Author Organization [employer] Address 75 [facility] 7t [place] [address] Care Team Providers Care Spinner Fixer Name Role Phone Mima Rock MD Primary Care Provider [phone] Allergies No known active allergies Medications nicotine (Nicoderm, Step 2) 14 MG/24HR patch apply 1 patch by transdermal route every day and wear for 16-24 hours. 04/30/20 21 Active nicotine (Nicoderm, Step 3) 7 MG/24HR patch apply 1 patch by transdermal route every day and wear for 16-24 hours. 04/30/20 21 Active nicotine polacrilex (Commit) 4 MG lozenge take 1 lozenge by oral route every 1-2 hours dissolved slowly in the mouth for 6 weeks, then 1 lozenge every 2-4 hours for 3 weeks, then 1 lozenge every 4-8 hours for 2 weeks. 04/30/20 21 Active acetaminophen (Tylenol 8 Hour) 650 MG ER tabletIndicatio ns:Left shoulder pain, unspecified chronicity Take 1 tablet (650 mg) by mouth every 8 (eight) hours if needed for mild pain. 30 tablet 10/01/19 24 Active calcipotriene (Dovonex) 0.005 % cream Apply topically every 12 (twelve) hours. 60 g 10/01/19 24 Active cholecalciferol (D3-1000) 25 MCG (1000 UT) tabletIndicatio ns:Chronic fatigue TAKE 1 TABLET (25 MCG) BY MOUTH IN THE MORNING 90 tablet 1 10/01/19 24 Active atorvastatin (Lipitor) 40 MG tablet Take 1 tablet (40 mg) by mouth in the morning. 30 tablet 11 10/05/19 24 Active metoprolol succinate XL (Toprol-XL) 25 MG 24 hr tablet 10/04/19 24 Active ezetimibe (Zetia) 10 MG tablet Take 10 mg by mouth in the morning. 07/14/20 23 Active hydrOXYzine HCl (Atarax) 25 MG tablet TAKE 1 TABLET BY MOUTH TWICE A DAY 180 tablet 1 11/26/19 24 Active tacrolimus (Protopic) 0.1 % ointmentIndicat ions:Intertrigo APPLY TO AFFECTED AREA EVERY 12 HOURS (BULK) 30 g 9 02/02/20 24 Active lidocaine (Lidoderm) 5 % patchIndication s:Acute back pain with sciatica, right Apply 1 patch topically Once per day. Remove & discard patch within 12 hours or as directed by MD. 30 patch 1 03/29/20 24 Active amLODIPine (Norvasc) 5 MG tabletIndicatio ns:Hypertension , unspecified type TAKE ONE TABLET BY MOUTH ONCE DAILY IN THE MORNING ^1R1 90 tablet 2 05/17/20 24 Active OLANZapine (ZyPREXA) 10 MG tablet TAKE ONE TABLET BY MOUTH EVERY MORNING ^1R1 30 tablet 06/07/20 24 Active docusate sodium (Colace) 100 MG capsuleIndicati ons:Constipatio n, unspecified constipation type TAKE ONE CAPSULE BY MOUTH EVERY 12 HOURS ^1R1,1R4 60 capsule 06/07/20 24 Active meclizine (Antivert) 12.5 MG tabletIndicatio ns:Dizziness TAKE ONE TABLET BY MOUTH EVERY 12 HOURS ^1R1,1R4 60 tablet 06/07/20 24 Active clopidogrel (Plavix) 75 MG tablet TAKE ONE TABLET BY MOUTH EVERY MORNING ^1R1 30 tablet 06/07/20 24 Active terazosin (Hytrin) 10 MG capsule TAKE ONE CAPSULE BY MOUTH AT BEDTIME ^1R4 30 capsule 06/07/20 24 Active melatonin 3 MG tablet TAKE ONE TABLET BY MOUTH AT BEDTIME ^1R4 30 tablet 06/07/20 24 Active hydroCHLOROthia zide (HYDRODiuril) 25 MG tabletIndicatio ns:Primary hypertension TAKE ONE TABLET BY MOUTH EVERY MORNING ^1R1 30 tablet 06/07/20 24 Active lisinopril 40 MG tabletIndicatio ns:Primary hypertension TAKE 1 TABLET BY MOUTH EVERY DAY 90 tablet 1 08/21/20 24 Active Spacer/Aero-Hol ding Chambers (OptiChamber Abril) misc 1 each every 4 (four) hours if needed (asthma). 1 each 09/12/20 Active celecoxib (CeleBREX) 100 MG capsule TAKE 1 CAPSULE BY MOUTH TWICE A DAY 60 capsule 09/15/20 Active cyclobenzaprine (Flexeril) 10 MG tablet TAKE 1 TABLET BY MOUTH TWICE A DAY NEEDED FOR BACK PAIN 30 tablet 10/06/19 Active metroNIDAZOLE (Flagyl) 500 MG tablet TAKE 1 TABLET BY MOUTH MORNING OF BX 04/11/24 ALONG WITH CIPRO 03/24/20 Active finasteride (Proscar) 5 MG tablet Take 1 tablet by mouth Once per day. 07/20/20 Active fluticasone (Flonase) 50 MCG/ACT nasal spray ADMINISTER 1 SPRAY INTO EACH NOSTRIL ONCE PER DAY. SHAKE GENTLY. BEFORE FIRST USE, PRIME PUMP. AFTER USE, CLEAN TIP AND REPLACE CAP. 16 mL 1 12/27/19 25 026 Active cloNIDine (Catapres) 0.1 MG tabletIndicatio ns:Primary hypertension TAKE 1 TABLET (0.1 MG) BY MOUTH IN THE MORNING. 90 tablet 2 12/27/19 25 026 Active albuterol 108 (90 Base) MCG/ACT inhaler INHALE 2 PUFFS EVERY 4 (FOUR) HOURS IF NEEDED FOR WHEEZING OR SHORTNESS OF BREATH. 18 g 1 12/29/19 25 026 Active cloNIDine (Catapres) 0.1 MG tabletIndicatio ns:Primary hypertension TAKE 1 TABLET (0.1 MG) BY MOUTH IN THE MORNING. 90 tablet 2 11/26/19 24 025 Discontinued fluticasone (Flonase Allergy Relief) 50 MCG/ACT nasal spray Administer 1 spray into each nostril Once per day. Shake gently. Before first use, prime pump. After use, clean tip and replace cap. 16 g 1 09/12/20 24 025 Discontinued albuterol 108 (90 Base) MCG/ACT inhaler INHALE 2 PUFFS EVERY 4 (FOUR) HOURS IF NEEDED FOR WHEEZING OR SHORTNESS OF BREATH. 18 g 1 11/07/19 25 025 Discontinued Active Problems Problem Noted Date Diagnosed Date Elevated PSA 07/19/2024 Tobacco dependence 03/24/2023 PAD (peripheral artery disease) 03/24/2023 Hypertensive disorder 12/13/2020 Mood disorder 12/13/2020 Encounters Date Type Department Care Team Description 12/27/2024 Refill [facility] [address] [place] [address] Humberto Mooney MD 12/24/2024 Refill [facility] PED[facility] [address] [place] [address] Mima Rock MD Primary hypertension 12/23/2024 Refill [facility] [address] [place] [address] Humberto Mooney MD 12/08/2024 Orders Only [facility] External Provider, [facility] 11/01/2024 8:30 AM EST Office Visit [facility] ADULT DENTAL [address] [place] [address] Marti Kerns Dental caries (Primary Dx) 10/28/2024 Refill [facility] [address] [place] [address] Humberto Mooney MD from Last 3 Months Immunizations Name Administration [...] 9:00 AM EDT Office Visit [facility] ADULT D[facility] [address] [place] [address] Polo Ford Health Maintenance Due Date Last [...] WITH SAHARA Routine 10/13/2024 7:51 AM EST PROPHYLAXIS - ADULT Routine 09/18/2024 [...] EDT Narrative 12/08/2024 11:02 AM EDT ? [facility] ?[address] ?[place] [address] ? CT Scan Report ? Signed ? Patient: Jose Luis,Noe N ?MR#: [id number] ?? 164 ? : 1955 ?Acct:[id number] ? Age/Sex: 69 / M ?ADM Date: 12/08/24 ? Loc: HO.CT ? Attending Dr: Betsy Uribe PA-C ? Ordering Physician: Betsy Uribe PA-C ?? Date of Service: 12/08/24 ?? Procedure(s): CT lung screening ?? Accession Number(s): [id number] ? cc: Betsy Uribe PA-C; Mima Rock MD ? Report Number: ?? [id number]: Total DLP = ?? 52.00 mGy-cm ?? [...] Category S: N/A ? Electronically signed by: ??Jsoe Luis Cat MD ??12/08/2024 10:59 AM EDT ?? RP ? Dictated By: ?Jose Luis Cat MD ? Signed By: ?<Electronically signed by Jose Luis Cat MD in OV> ?12/08/24 1059 ? DD/ 0946 ? TD/TT: 12/08/24 1013 ? Abe Teacher: ? Procedure Note Daniel Brock - 12/08/[address] [place] [address] [address] Scan Report Signed Patient: Noe Amaya NMR#: [id number] 164 : 1955cct:[id number] Age/Sex: 69 / MADM Date: 12/08/24 Loc: .CT Attending Dr: Betsy Uribe PA-C Ordering Physician: Betsy Uribe PA-C Date of Service: 12/08/24 Procedure(s): CT lung screening Accession Number(s): [id number] cc: Betsy Uribe PA-C; Mima Rock MD Report Number: [id number]: Total DLP = 52.00 mGy-cm EXAMINATION: CT [...] 12/08/24 1059 DD/ 0946 TD/TT: 12/08/24 1013 Abe Teacher: [facility] External Provider IMG CT PROCEDURES Final Result * [facility] Lower Extremity Arterial Duplex Bilateral With Sahara (10/13/2024 7:51 AM EST) 10/13/2024 7:51 AM EST Narrative [facility] - 10/13/2024 7:52 AM EST ? [facility] ?[address] ?[place] [address] ? Ultrasound Report ? Signed ? Patient: Jose Luis,Noe N ?MR#: [id number] ?? 164 ? : 1955 ?Acct:[id number] ? Age/Sex: 69 / M ?ADM Date: 01/16/25 ? Loc: HO.US ? Attending Dr: Joseph Mcclain MD ? Ordering Physician: Joseph Mcclain MD ?? Date of Service: 10/12/24 ?? Procedure(s): US arterial duplex BI w/ SAHARA ?? Accession Number(s): [id number] ? cc: Joseph Mcclain MD; Mima Rock [...] DD/ 0751 ? TD/TT: 10/13/24 0751 ? Abe Teacher: ? Procedure Note Daniel Brock - 10/13/[address] [address] Ultrasound Report Signed Patient: Noe Amaya NMR#: [id number] 164 : 1955cct:[id number] Age/Sex: 69 / MADM Date: 10/12/24 Loc: HO.US Attending Dr: Joseph Mcclain MD Ordering Physician: Joseph Mcclain MD Date of Service: 10/12/24 Procedure(s): US arterial duplex BI w/ SAHARA Accession Number(s): [id number] cc: Joseph Mcclain MD; Mima Rock MD [...] OV> 10/13/24 0752 DD/ 0 TD/TT: 10/13/24750 Abe Teacher: [facility] External Provider CV VASC ULAR PROCEDURES Edited Result - Final [facility] [address] [place] [address] * (ABNORMAL) Lipid Panel, Standard (08/18/2024 8:38 AM EST) Triglycerides 141 <150 mg/dL [facility] Comment:Desirable Triglyceri de: less than 150 mg/dLBorderline High Triglyceride 150-199 mg/dLHigh Triglyceride: 200-499 mg/dLVery High Triglyceride: greater than or equal to 5OO mg/dL Cholesterol 181 <200 mg/dL [facility] Comment:Desirable Cholestero l: less than 200 mg/dLBorderline High Cholesterol: 200-239 mg/dLHigh Cholesterol: greater than 239 mg/dL LDL Cholesterol Calculated 105(H) <100 mg/dL [facility] Comment:Desirable LDL: less than 100 mg/dLNear Optimal/Above Optimal LDL: 110- 129 mg/dLBorderline High LDL: 130-159 mg/dLHigh LDL: 160-189 mg/dLVery High LDL: greater than or equal to 190 mg/dL HDL Cholesterol 48 >40 mg/dL [facility] Comment:Desirable HDL: great er than 40 mg/dL Note: This HDL assay may give artificially low results in patients with liver disease. Blood Venous blood specimen / Unknown 08/18/2024 8:38 AM EST 08/18/2024 2:10 PM EST us Mima Rock MD LAB BLOOD ORDERABLES Final Resul t [facility] [address] [place] [address] [phone] from Last 3 Months or Most Recently Relevant to Health Maintenance [place] [address] [place] [address] - PRO * Guarantor: Noe Amaya Account Type Relation to Patient Date of Phone Billing Address Dental Self 1955 [address] [facility] [address] [place] [address] DENTAL [facility] Care Teams Spinner Fixer Relationship Specialty Start Date End Date Mima Rock MD [address] [place] [address] PCP - General Family Medicine 08/02/20
--- OUTSIDE RECORDS SUMMARY | 2025-01-11 09:07 | XMS_ITS | Encounter Summary ---
Author Organization [employer] Address 75 [facility] 7t [place] [address] Care Team Providers Care Facial Operator Name Role Phone Mima Rock MD Primary Care Provider Reason for Visit * Reason Onset Date Comments Medication Question 01/28/2023 Encounter Details Date Type Department Care Team ([facility] st Contact Info) Description 01/28/2023 Telephone C [facility] [address] [place], [place] [phone] Mima Rock MD [address] [place] [address] Medication Question Social History Tobacco Use Types [...] #1230 - [place] - [address] [facility] documented in this encounter Plan of Treatment Upcoming Encounters Date Type Department Care Team (Late st Contact Info) Description 03/20/2025 9:00 AM EDT Office Visit [facility] ADULT DENTAL [address] [place] [address] Polo Ford documented as of this encounter Visit Diagnoses Diagnosis Intertrigo Other specified erythematous condition documented in this encounter Care Teams Facial Operator Relationship Specialty Start Date End Date Mima Rock MD [address] [place] [address] PCP - General Family Medicine 08/02/20 documented as of this encounter
--- OUTSIDE RECORDS SUMMARY | 2025-01-11 09:07 | XMS_ITS | Encounter Summary ---
Author Organization [employer] Address 75 [facility] 7t [place] [address] Care Team Providers Care Adjunct Mathematics Instructor Name Role Phone Mima Rock MD Primary Care Provider [phone] Reason for Visit * Reason Comments Med Refill Encounter Details Date Type Department Care Team ([facility] st Contact Info) Description 10/05/2024 Refill [facility] MED & PEDS [address] [place], [place] [phone] Mima Rock MD [address] [place] [address] Social History Tobacco Use Types Packs/Day Years [...] t he electric, gas, oil or water [employer] threatened to shut off services in your [...] Description 03/20/2025 9:00 AM EDT Office Visit [facility] CHC ADULT DENTAL [address] [place] [address] Polo Ford documented as of this encounter Visit Diagnoses Not on filedocumented in this encounter Care Teams Adjunct Mathematics Instructor Relationship Specialty Start Date End Date Mima Rock MD [address] [place] [address] PCP - General Family Medicine 08/02/20 documented as of this encounter
--- OUTSIDE RECORDS SUMMARY | 2025-01-11 09:07 | XMS_ITS | Encounter Summary ---
Author Organization [employer] Address 75 [facility] 7t [place] [address] Care Team Providers Care Rework Machine Operator Name Role Phone Mima Rock MD Primary Care Provider [phone] Reason for Visit * Reason Onset Date Comments Nurse Triage 05/12/2023 Encounter Details Date Type Department Care Team (Late st Contact Info) Description 05/12/2023 Telephone [facility] [address] [place], [place] [phone] Mima Rock MD [address] [place] [address] Nurse Triage Social History Tobacco Use Types [...] Pt requests apt tomorrow declines offer for [facility] today. Pt is advised to come to [facility] tomorrow morning opens 830am-400pm. Pt [...] [facility] [address] [place] [address] Polo Ford documented as of this encounter Visit Diagnoses Not on filedocumented in this encounter Care Teams Rework Machine Operator Relationship Specialty Start Date End Date Mima Rock MD [address] [place] [address] PCP - General Family Medicine 08/02/20 documented as of this encounter
--- OUTSIDE RECORDS SUMMARY | 2025-01-11 09:07 | XMS_ITS | Encounter Summary ---
Author Organization [employer] Address 75 [facility] 7t [place] [address] Care Team Providers Care Glass Loading Equipment Tender Name Role Phone Mima Rock MD Primary Care Provider [phone] Reason for Visit * Reason Comments Med Refill Encounter Details Date Type Department Care Team ([facility] st Contact Info) Description 11/02/2023 Refill [facility] MED & PEDS [address] [place] [address] Ellie Ford MD [address] [place] [address] Intertrigo Social History Tobacco Use Types Packs/Day [...] 03/20/2025 9:00 AM EDT Office Visit [facility] ADULT D[facility] [address] [place] [address] Polo Ford documented as of this encounter Visit Diagnoses Diagnosis Intertrigo Other specified erythematous condition documented in this encounter Care Teams Glass Loading Equipment Tender Relationship Specialty Start Date End Date Mima Rock MD [address] [place] [address] PCP - General Family Medicine 08/02/20 documented as of this encounter
--- OUTSIDE RECORDS SUMMARY | 2025-01-11 09:07 | XMS_ITS | Encounter Summary ---
Author Organization [employer] Address 75 [facility] 7t [place] [address] Care Team Providers Care Petroleum Refining Equipment Operator Name Role Phone Mima Rock MD Primary Care Provider [phone] Reason for Visit * Reason Onset Date Comments Appointment Request 09/01/2023 Encounter Details Date Type Department Care Team ([facility] st Contact Info) Description 09/01/2023 Telephone [facility] CHC MED & PEDS [address] [place] [address] Mima Rock MD [address] [place] [address] Appointment Request Social History Tobacco Use Types [...] in groin area. Please contact pt at [phone] documented in this encounter Plan of Treatment Upcoming Encounters Date Type Department Care Team (Late st Contact Info) Description 03/20/2025 9:00 AM EDT Office Visit [facility] ADULT DENTAL [address] [place] [address] Polo Ford documented as of this encounter Visit Diagnoses Not on filedocumented in this encounter Care Teams Petroleum Refining Equipment Operator Relationship Specialty Start Date End Date Mima Rock MD [address] [place] [address] PCP - General Family Medicine 08/02/20 documented as of this encounter
--- OUTSIDE RECORDS SUMMARY | 2025-01-11 09:07 | XMS_ITS | Encounter Summary ---
Author Organization [employer] Address 75 [facility] 7t [place] [address] Care Team Providers Care Product Marketing Intern Name Role Phone Mima Rock MD Primary Care Provider [phone] Reason for Visit * Reason Comments Med Change Request Encounter Details Date Type Department Care Team ([facility] st Contact Info) Description 10/04/2024 Refill [facility] [address] [place], [place] [phone] Humberto Mooney MD [address] [place], [place] [phone] Social History Tobacco Use Types Packs/Day Years [...] Description 03/20/2025 9:00 AM EDT Office Visit [facility] CHC ADULT DENTAL [address] [place] [address] Polo Ford documented as of this encounter Visit Diagnoses Not on filedocumented in this encounter Care Teams Product Marketing Intern Relationship Specialty Start Date End Date Mima Rock MD [address] [place] [address] PCP - General Family Medicine 08/02/20 documented as of this encounter
--- OUTSIDE RECORDS SUMMARY | 2025-01-11 09:07 | XMS_ITS | Encounter Summary ---
Author Organization [employer] Address 75 [facility] 7t [place] [address] Care Team Providers Care Purifying Plant Operator Name Role Phone Mima Rock MD Primary Care Provider [phone] Encounter Details Date Type Department Care Team (Late st Contact Info) Description 08/30/2022 Orders Only [facility] MEDICINE [address] [place], [place] [phone] Norma Nevarez MD [address] [place] [address] Peripheral artery disease (CMS/HCC) (Primary Dx) Social [...] Description 03/20/2025 9:00 AM EDT Office Visit [facility] CHC ADULT DENTAL [address] [place] [address] Polo Ford documented as of this encounter Visit Diagnoses Diagnosis Peripheral artery disease (CMS/HCC)- Primary documented in this encounter Care Teams Purifying Plant Operator Relationship Specialty Start Date End Date Mima Rock MD [address] [place] [phone] PCP - General Family Medicine 08/02/20 documented as of this encounter
--- OUTSIDE RECORDS SUMMARY | 2025-01-11 09:07 | XMS_ITS | Encounter Summary ---
Author Organization [employer] Address 75 [facility] 7t [place] [address] Care Team Providers Care Deliverer Merchandise Name Role Phone Mima Rock MD Primary Care Provider [phone] Reason for Visit * Reason Comments Med Refill Encounter Details Date Type Department Care Team (Late Contact Info) Description 2023 Refill [facility] MED & PEDS [address] [place] [address] Mima Rock MD [address] [place] [address] Social History Tobacco Use Types Packs/Day Years [...] [facility] [address] [place] [address] Polo Ford documented as of this encounter Visit Diagnoses Not on filedocumented in this encounter Care Teams Deliverer Merchandise Relationship Specialty Start Date End Date [place] [address] PCP - General Family Medicine 08/02/20 documented as of this encounter
--- OUTSIDE RECORDS SUMMARY | 2025-01-11 09:07 | XMS_ITS | Encounter Summary ---
Author Organization [employer] Address 75 [facility] 7t [place] [address] Care Team Providers Care Rubber Curer Name Role Phone Mima Rock MD Primary Care Provider [phone] Reason for Visit * Reason Onset Date Comments Medication Question 10/01/2023 Encounter Details Date Type Department Care Team ([facility] st Contact Info) Description 10/01/2023 Telephone C [facility] [address] [place], [place] [phone] Mima Rock MD [address] [place] [address] Medication Question Social History Tobacco Use Types [...] Metoprolol 25 mg, Atorvastatin, and Penicillin0.4 mg. Manager Stone unable to confirm Penicillin if any questions please contact pharmacy at [phone]. documented in this encounter Plan of Treatment Upcoming Encounters Date Type Department Care Team (Late st Contact Info) Description 03/20/2025 9:00 AM EDT Office Visit [facility] AD[facility] D[facility] [address] [place] [address] Polo Ford documented as of this encounter Visit Diagnoses Not on filedocumented in this encounter Care Teams Rubber Curer Relationship Specialty Start Date End Date Mima Rock MD [address] [place] [address] PCP - General Family Medicine 08/02/20 documented as of this encounter
--- OUTSIDE RECORDS SUMMARY | 2025-01-11 09:07 | XMS_ITS | Encounter Summary ---
Author Organization [employer] Address 75 [facility] 7t [place] [address] Care Team Providers Care Carburizer Name Role Phone Mima Rock MD Primary Care Provider [phone] Encounter Details Date Type Department Care Team (Late st Contact Info) Description 08/31/2022 Orders Only [facility] MEDICINE [address] [place] [address] Mima Rock MD [address] [place] [address] Claudication of both lower extremities (CMS/HCC) (Primary [...] [facility] CH[facility] ADULT DENTAL [address] [place] [address] Polo Ford documented as of this encounter Visit Diagnoses Diagnosis Claudication of both lower extremities (CMS/HCC)- Primary documented in this encounter Care Teams Carburizer Relationship Specialty Start Date End Date Mima Rock MD [address] [place] [address] PCP - General Family Medicine 08/02/20 documented as of this encounter
--- OUTSIDE RECORDS SUMMARY | 2025-01-11 09:07 | XMS_ITS | Encounter Summary ---
Author Organization [employer] Address [address] [facility] [address] 7t [place] [address] Care Team Providers Care Railcar Foreman Name Role Phone Mima Rock MD Primary Care Provider Reason for Visit * Reason Comments Med Refill Encounter Details Date Type Department Care Team ([facility] st Contact Info) Description 10/05/2024 Refill [facility] [address] [place] [address] Ilene Goins MD [address] [place], [place] [phone] Social History Tobacco Use Types Packs/Day Years [...] the past 12 months, has t he [employer], oil or water company threatened to shut [...] [facility] AD[facility] [address] [place] [address] Polo Ford documented as of this encounter Visit Diagnoses Not on filedocumented in this encounter Care Teams Railcar Foreman Relationship Specialty Start Date End Date Mima Rock MD [address] [place] [address] PCP - General Family Medicine 08/02/20 documented as of this encounter
--- OUTSIDE RECORDS SUMMARY | 2025-01-11 09:07 | XMS_ITS | Encounter Summary ---
Author Organization [employer] Address [address] [facility] 7t [place] [address] Care Team Providers Care Profiling Machine Set Up Operator Tool Name Role Phone Mima Rock MD Primary Care Provider Reason for Visit * Reason Onset Date Comments Medication Question 10/01/2023 Encounter Details Date Type Department Care Team ([facility] st Contact Info) Description 10/01/2023 Telephone C [facility] 505 [place], [place] [phone] Mima Rock MD 505 [place] [address] Medication Question Social History Tobacco Use Types [...] from 10/01 11:39. To contact Mitzi at [phone] Rock * Telephone Encounter - [...] - 10/01/2023 11:29 AM EST Tc from [employer] requesting a call in regards to some [...] medications doing the same thing. Please contact [phone] documented in this encounter Plan of Treatment Upcoming Encounters Date Type Department Care Team (Late st Contact Info) Description 03/20/2025 9:00 AM EDT Office Visit [facility]ULT [facility] [address] [place] [address] Polo Ford documented as of this encounter Visit Diagnoses Not on filedocumented in this encounter Care Teams Profiling Machine Set Up Operator Tool Relationship Specialty Start Date End Date Mima Rock MD [address] [place] [address] PCP - General Family Medicine 08/02/20 documented as of this encounter
--- OUTSIDE RECORDS SUMMARY | 2025-01-11 09:07 | XMS_ITS | Encounter Summary ---
Author Organization [employer] Address [address] [facility] 7t [place] [address] Care Team Providers Care Medical Billing Associate Name Role Phone Mima Rock MD Primary Care Provider [phone] Encounter Details Date Type Department Care Team (Latest Contact Info) Description 05/18/2022 Abstract [facility] CONVERSIONS Dental, Provider, DDS Social History Tobacco [...] [facility] [address] [place] [address] Polo Ford documented as of this encounter Visit Diagnoses Not on filedocumented in this encounter Care Teams Medical Billing Associate Relationship Specialty Start Date End Date Mima Rock MD [address] [place] [address] PCP - General Family Medicine 08/02/20 documented as of this encounter
== END 2025-01-11 09:48 | disposition home or self-care (01) ==
PROVIDERS: PCP Student in an Organized Health Care Education/Training Program; Visit Provider Physician Assistant
DX: R53.83 Other fatigue (principal)

== ENCOUNTER 2025-02-22 09:02 | Outpatient (REF) | payer OTHER, SELFPAY ==
--- OUTSIDE RECORDS SUMMARY | 2025-02-22 09:24 | XMS_ITS | Encounter Summary ---
Author Organization [employer] Address [address] [facility] [address]t [place] [address] Care Team Providers Care Racing Driver Name Role Phone Mima Rock MD Primary Care Provider [phone] Reason for Visit * Reason Comments Med Refill Encounter Details Date Type Department Care Team (Late Contact Info) Description 2023 Refill [facility] MED & PEDS [address] [place] [address] Mima Rock MD [address] [place] [address] Social History Tobacco Use Types Packs/Day Years [...] Visit [facility] ADULT DENTAL [address] [place] [address] Polo Ford documented as of this encounter Visit Diagnoses Not on filedocumented in this encounter Care Teams Racing Driver Relationship Specialty Start Date End Date Mima Rock MD [address] [place] [address] PCP - General Family Medicine 08/02/20 documented as of this encounter
[2025-02-22 11:08] LABS: Alanine Aminotransferase 25 U/L (0-40); Albumin Level 4.7 g/dL (3.5-5.0); Alkaline Phosphatase 66 U/L (39-117); Anion Gap 13 (12-20); Aspartate Amino Transferase 32 U/L (5-37); Bilirubin Direct 0.2 mg/dL (0.0-0.5); Bilirubin Total 0.6 mg/dL (0.0-1.0); Blood Urea Nitrogen 17 mg/dL (9-16); Calcium 9.7 mg/dL (8.4-10.2); Carbon Dioxide 23 mmol/L (22-29); Chloride 107 mmol/L (96-108); Cholesterol 155 mg/dL (<200); Estimated Glomerular Filt Rate > 60; Glucose Random 96 mg/dL (60-115); HDL Cholesterol 39 mg/dL (>40); LDL Cholesterol Calculated 89 mg/dL (<100); Sodium 139 mmol/L (135-145); Total Protein 7.4 g/dL (6.5-8.0); Triglycerides 137 mg/dL (<150)
[2025-02-22 11:21] LABS: PSA,Total (Free>4and<10) 20.52 ng/mL (0.00-4.00)
== END 2025-02-22 09:03 | disposition home or self-care (01) ==
LOC: HO.CHCLDS 09:02
PROVIDERS: Visit Provider Student in an Organized Health Care Education/Training Program
DX: I10 Essential (primary) hypertension (principal); R97.20 Elevated prostate specific antigen [PSA]; Z12.5 Encounter for screening for malignant neoplasm of prostate
CPT/HCPCS: 36415; 80048; 80061; 80076; 84153

== ENCOUNTER 2025-04-26 09:15 | Outpatient (REF) | payer OTHER, SELFPAY ==
--- NOTE | ~2025-04-26 | XR_ITS ---
EXAMINATION: XR KNEE, LEFT CLINICAL INFORMATION: left knee pain after trauma COMPARISON: None available. TECHNIQUE: Four views of the left knee. FINDINGS: There is mild narrowing of the medial joint space without narrowing of the lateral joint space. Lateral intercondylar tubercle is peaked. There is no joint effusion. There is moderate calcification in the femoral and popliteal and lower leg arteries. There is chronic fragmentation of tibial tubercle. XR/XR knee LT 4V IMPRESSION: Mild nonspecific medial joint space narrowing. Electronically signed by: Gera Hernadez MD 04/26/2025 09:54 AM EDT
--- OUTSIDE RECORDS SUMMARY | 2025-04-26 09:32 | XMS_ITS | Encounter Summary ---
Author Organization [email or web address] Address 75 [facility] [address] [place] [address] Care Team Providers Care Insole Tape Stitcher Uco Name Role Phone Mima Rock MD Primary Care Provider [phone] Reason for Visit * Reason Comments Med Refill Encounter Details Date Type Department Care Team ([facility] st Contact Info) Description 2023 Refill [facility] CHC MED & PEDS [address] [place], [place] [phone] Mima Rock MD [address] [place] [address] Social History Tobacco Use Types Packs/Day Years [...] as of this encounter Plan of Treatment Not on file documented as of this encounter Visit Diagnoses Not on filedocumented in this encounter Care Teams Insole Tape Stitcher Uco Relationship Specialty Start Date End Date Mima Rock MD [address] [place] [id number] PCP - General Family Medicine 08/02/20 documented as of this encounter
== END 2025-04-26 09:16 | disposition home or self-care (01) ==
LOC: HO.HHCX 09:15
PROVIDERS: PCP Student in an Organized Health Care Education/Training Program; Visit Provider Internal Medicine
DX: M25.562 Pain in left knee (principal)
CPT/HCPCS: 73564

== ENCOUNTER → 2025-04-26 09:36 | Outpatient (BNV) | payer OTHER, SELFPAY | PROVIDERS: PCP Student in an Organized Health Care Education/Training Program; Visit Provider Radiology Diagnostic Radiology | DX: M25.562 Pain in left knee (principal) | CPT/HCPCS: 73564 ==

== ENCOUNTER 2025-07-25 14:31 | Outpatient (AMB) | payer OTHER, SELFPAY ==
--- NOTE | 2025-07-25 14:39 | MHC.OFFVIS ---
Vital Signs 07/25/25 14:43 Height 5 ft 9 in Weight 174 lb BMI 25.7 Intake Visit Reasons: Inj-Right shoulder injection-10/08/21 Intake Note: Noe is a 70 year old male who presents today for a right shoulder injection. He was given an injection to his right shoulder on 10/08/21. Today patient reports injections provided him with relief that helped for a while. His pain returned the past year. He wishes to repeat injection. Allergies No Known Allergies Allergy (Verified 07/25/25 14:43) Medication List - Last Reconciled 07/25/25 by Alex Iglesias PA-C amlodipine 5 mg PO QAM aspirin 81 mg PO DAILY atorvastatin 40 mg PO BEDTIME calcipotriene 0.005% 1 appl topical BID cholecalciferol (vitamin D3) (Vitamin D3) 25 mcg PO DAILY clonidine HCl 0.1 mg PO BEDTIME clopidogrel (Plavix) 75 mg PO DAILY ezetimibe 10 mg PO DAILY finasteride 5 mg PO DAILY 90 days hydrochlorothiazide 25 mg PO DAILY hydroxyzine HCl 25 mg PO BID lidocaine 5% (Lidoderm) 1 patch topical DAILY lisinopril 40 mg PO DAILY meclizine 12.5 mg PO BID metoprolol succinate ER 25 mg PO DAILY 90 days mupirocin 2% 1 appl topical TID nystatin topical TID olanzapine 10 mg PO DAILY polyethylene glycol 3350 (Miralax) 17 grams PO DAILY sennosides (Natural Senna Laxative) 8.6 mg PO BEDTIME sertraline 25 mg PO DAILY terazosin 10 mg PO BEDTIME 90 days HPI HPI Inj-Right shoulder injection-10/08/21: Details: 70-year-old gentleman returns to the office today for his right shoulder. His last injection in the right shoulder was September of 2021. He states he has been doing well with some occasional discomfort but over the last several weeks he has noticed worsening pain which limits his daily activity. [facility] Medical History (Updated 01/11/25 @ 09:48 by Vi Valdez PA-C) Tubular adenoma of colon PAD (peripheral artery disease) Elevated PSA BPH (benign prostatic hyperplasia) Nicotine dependence, cigarettes, uncomplicated COVID-19 Anxiety HTN (hypertension) Surgical History History of atherectomy History of colonoscopy S/P cardiac cath S/P angiogram of extremity Family History Father Hx of colon cancer, stage IV Hx of diabetes insipidus Mother Family history of high blood pressure Social History Household Members: None Are you a primary transitional care nurse to a significant other at home: No Do you presently have visiting nurse or other home services: No Alcohol intake: current Alcohol intake frequency: holidays/special occasions only Patient Tobacco Use Status: Current everyday Tobacco user Tobacco use type: Cigarette Cigarette Packs Per Day: 0.5 Cigarettes Per Day: 10 Years Smoked: (onset 17yo, 1/2ppd x 52yrs 25+PYH) Second Hand Smoke Exposure: No Current occupational status: unemployed Current occupation: left handed Review of Systems Const All systems reviewed & are unremarkable except as noted in HPI and below Physical Exam Vital Signs: BMI result Body Mass Index 25.7 Extrem Other: Right shoulder normal to inspection. Tenderness over the bicipital groove and along the trapezium muscle into the lateral side of the neck. FF to 100, ER to 90, IR to S1. 5/5 RTC strength, negative apprehension test. NVI. Office Procedures AMB Joint Injection/Aspiration Joint Injection/Aspiration Primary Site: right shoulder Prep: site was prepped using aseptic technique, ethochloride spray was applied and injection warnings given Injected: 40 mg of, with 3 mL of, 1% plain lidocaine, 0.25% bupivacaine and in the subcromial space Approach Used: posterolateral Procedure: The patient tolerated the procedure well and there was some relief with the local anesthesia Coding 92001 - Glenohumeral/Tronchanteric Bursa/Intraarticular Procedure code (CPT) selection complete Assessment & Plan Assessment & Plan (1) Rotator cuff arthropathy of right shoulder: Code(s): M12.811 - Other specific arthropathies, not elsewhere classified, right shoulder Category: Medical Plan: We discussed options today, which include steroid injection. The patient did consent to move forward with the injection, which was tolerated well.? I recommended rest, ice and elevation and OTC antiinflammatories prn for discomfort. If symptoms persist over the next 6-8 weeks, they will contact our office, otherwise, prn Coding Level of Care Code Est Pt Level 3 (35712) Complex EM visit Add On G2211 Diagnoses Rotator cuff arthropathy of right shoulder M12.811 CPT Codes Coding - Joint 7: 01151 - Glenohumeral/Tronchanteric Bursa/Intraarticular ([id number])
[2025-07-25 14:43] VITALS: BMI 25.7
--- OUTSIDE RECORDS SUMMARY | 2025-07-25 18:52 | XMS_ITS | Encounter Summary ---
Author Organization [employer] Address [address] [facility] [address]t [place] [address] Care Team Providers Care Parts Salesperson Name Role Phone Mima Rock MD Primary Care Provider [phone] Reason for Visit * Reason Comments Med Refill Encounter Details Date Type Department Care Team (Late Contact Info) Description 2023 Refill [facility] MED & PEDS [address] [place], [place] [phone] Mima Rock MD [address] [place] [address] Social History Tobacco Use Types Packs/Day Years [...] Care Team (Late st Contact Info) Description 07/30/2025 1:00 PM EST Office Visit [facility] ADULT DENTAL [address] [place] [address] Saray Harp DDS [address] [place] [address] documented as of this encounter Visit Diagnoses Not on filedocumented in this encounter Care Teams Parts Salesperson Relationship Specialty Start Date End Date Mima Rock MD [address] [place] [address] PCP - General Family Medicine 08/02/20 documented as of this encounter
--- OUTSIDE RECORDS SUMMARY | 2025-07-25 18:52 | XMS_ITS | Encounter Summary ---
Author Organization [employer] Address 75 [facility] 7t [place] [address] Care Team Providers Care Fit Model Name Role Phone Mima Rock MD Primary Care Provider [phone] Reason for Visit * Reason Onset Date Comments Nurse Triage 05/12/2023 Encounter Details Date Type Department Care Team ([facility] st Contact Info) Description 05/12/2023 Telephone C [facility] [address] [place] [address] Mima Rock MD [address] [place] [address] Nurse Triage Social History Tobacco Use Types [...] Pt requests apt tomorrow declines offer for [facility] today. Pt is advised to come to [facility] tomorrow morning opens 830am-400pm. Pt agrees [...] Description 07/30/2025 1:00 PM EST Office Visit [facility] CHC ADULT DENTAL [address] [place] [address] Saray Harp DDS [address] [place] [address] documented as of this encounter Visit Diagnoses Not on filedocumented in this encounter Care Teams Fit Model Relationship Specialty Start Date End Date Mima Rock MD [address] [place] [address] PCP - General Family Medicine 08/02/20 documented as of this encounter
--- OUTSIDE RECORDS SUMMARY | 2025-07-25 18:52 | XMS_ITS | Clinical Summary ---
Author Organization [employer] Address [address] [facility] 7t [place] [address] Care Team Providers Care Parachute Accessories Attacher Name Role Phone Mima Rock MD Primary Care Provider [phone] Allergies No known active allergies Medications nicotine [...] THE MORNING 90 tablet 1 4 Active metoprolol succinate XL (Toprol-XL) 25 MG 24 hr tablet 4 Active ezetimibe (Zetia) 10 MG tablet Take 10 mg by mouth in the morning. 3 Active hydrOXYzine HCl (Atarax) 25 MG tablet [...] EVERY MORNING ^1R1 30 tablet 4 Active Spacer/Aero-Hold ing Chambers (OptiChamber Abril) misc 1 each every 4 (four) hours if needed (asthma). 1 each 4 Active cyclobenzaprine (Flexeril) 10 MG tablet TAKE 1 TABLET BY MOUTH TWICE A DAY NEEDED FOR BACK PAIN 30 tablet 5 Active metroNIDAZOLE (Flagyl) 500 MG tablet TAKE 1 TABLET BY MOUTH MORNING OF BX 04/11/24 ALONG WITH CIPRO 4 Active cloNIDine (Catapres) 0.1 MG tabletIndication s:Primary hypertension TAKE 1 TABLET (0.1 MG) BY MOUTH IN THE MORNING. 90 tablet 2 5 12/27/19 26 Active rosuvastatin (Crestor) 20 MG tablet Take 1 tablet (20 mg) by mouth Once per day. 90 tablet 3 5 Active lisinopril 40 MG tabletIndication s:Primary hypertension TAKE 1 TABLET BY MOUTH EVERY DAY 90 tablet 1 5 Active albuterol 108 (90 Base) MCG/ACT inhaler INHALE 2 PUFFS BY MOUTH EVERY 4 HOURS NEEDED FOR WHEEZING OR SHORTNESS OF BREATH. 6.7 g 1 5 Active celecoxib (CeleBREX) 200 MG capsuleIndicatio ns:Acute pain of left knee Take 1 capsule (200 mg) by mouth 2 times daily. 60 capsule 3 5 08/22/20 25 Active fluticasone (Flonase) 50 MCG/ACT nasal spray SPRAY 1 SPRAY INTO EACH NOSTRIL ONCE PER DAY. SHAKE GENTLY. BEFORE FIRST USE, PRIME PUMP. AFTER USE, CLEAN TIP AND REPLACE CAP. 16 mL 1 5 Active Active Problems Problem Noted Date Diagnosed Date Elevated PSA 07/19/2024 Tobacco dependence 03/24/2023 PAD (peripheral artery disease) 03/24/2023 Hypertensive disorder 12/13/2020 Mood disorder 12/13/2020 Encounters Date Type Department Care Team Description 07/11/2025 8:00 AM EDT Office Visit [facility] ADULT DENTAL [address] [place], [place] [phone] Polo Ford Secondary dental caries associated with failed or defective dental yazidi (Primary Dx); Asymptomatic apical periodontitis 05/19/2025 Refill [facility] [address] [place], [place] [phone] Mima Rock MD 04/27/2025 Results Follow-Up [facility] MEDICINE [address] [place], [place] [phone] Marlen Srinivasan, ANURADHA XR Knee 4+ Views Left 04/24/2025 Refill [facility] MED & PEDS [address] [place] [address] Mima Rock MD Acute pain of left knee; Intertrigo from Last 3 Months Immunizations Immunization Administration Dates Next Due Influenza High-dose Quadriva lent Preservative Free 09/29/2022,07/29/2022 Influenza Injectable Quadriv alant Preservative Free IIV4 MDCK 08/18/2021 Influenza Quadrivalent Adjuvanted 07/14/2023 Influenza injectable quadriv alent preservative free 09/22/2021,06/13/2020 Influenza, High Dose Seasona l, Preservative Free 05/26/2024 Influenza, IIV3, injectable 07/14/2025 Moderna Covid-19 Vaccine 12+ 07/14/2025, 09/02/2021,01/17/2021,2020 Pfizer Covid-19 Vaccine 12+ 07/29/2022 Pfizer Covid-19 Vaccine 12+ Bivalent 05/19/2023, 07/29/2022 Pfizer Covid-19 Vaccine 12+ tom-sucrose (Paz Cap) 01/06/2022 Pneumococcal Conjugate PCV 20 12/23/2023, 023 RSV Bivalent 09/28/2024 RSV-MAB, Unspecified 09/28/2024 Tdap 09/16/2023 Zoster, Recombinant 09/28/2024,05/19/2024 Zoster, live 09/28/2024 Social History Tobacco Use Types Packs/Day Years Used Date Smoking Tobacco: Every Day Cigarettes Passive Smoke Exposure: Never Tobacco Cessation:Ready to Q uit: Not Asked; Counseling Given: Not Answered Alcohol Use Standard Drinks/Week Comments Yes 2 (1 standard drink = 0.6 oz pur e alcohol) Depression Answer Date Recorded Patient Health Questionnaire-9 Score 3 02/22/2025 Patient Health Questionnaire-9 Score 3 02/22/2025 Last PHQ-9: Questionnaire Data Not on file 0 02/22/2025 Housing Stability Answer Date Recorded What is [...] Answer Date Recorded Patient Health Questionnaire-2 Score 2 02/22/2025 Internet Access Answer Date Recorded Internet Access [...] Sign Reading Time Taken Comments Blood Pressure 146/80 07/11/2025 8:05 AM EDT Pulse 76 07/11/2025 8:05 AM EDT Temperature 36.4 C (97.6 F) 04/23/2025 11:05 AM EDT Respiratory Rate 20 04/23/2025 11:05 AM EDT Oxygen Saturation 98% 04/23/2025 11:05 AM EDT Inhaled Oxygen Concentration - - Weight 78.5 kg (173 lb) 04/23/2025 11:05 AM EDT Height 167.6 cm (5' 6 ) 04/23/2025 11:05 AM EDT Body Mass Index 27.92 04/23/2025 11:05 AM EDT Plan of Treatment Upcoming Encounters Date Type Department Care Team (Late st Contact Info) Description 07/30/2025 1:00 PM EST Office Visit [facility] ADULT DENTAL [address] [place] [address] Saray Harp, DDS [address] [place] [address] Health Maintenance Due Date Last Done Comments CT Colonography 1957 FIT DNA/Cologuard 1957 FIT 1957 FOBT 1957 Sigmoidoscopy 1957 Alcohol/Substance Use Screening 1969 Hepatitis C Screening 1975 Colonoscopy 12/15/2022 12/15/2020 Colorectal Cancer Screening 12/15/2022 Zoster Vaccines (3 of 3) 11/23/2024 025, 09/28/2024, 05/19/2024 SDOH Screening 07/12/2025 07/12/2024 Dental X-Ray: Bitewings 09/19/2025 09/18/2024, 09/14 Dental Oral Exam 01/10/2026 07/11/2025, , 03/16/2024, Additional history exists Dental Prophylaxis 01/10/2026 07/11/2025, 1 11/19/2023, 03/16/2024, Additional history exists COVID-19 Vaccine (2023- season) 2026 07/14/2025, 05/26/2024, 12/23/2023, Additional history exists Depression Screening 02/22/2026 02/22/2025, 02/23/20 25 Tobacco Screening 07/11/2026 07/11/2025 Dental X-Ray: Full Mouth 09/19/2027 09/18/2024 Lipid Panel 02/22/2030 02/22/2025, 07/29, 09/16/2023, Additional history exists DTaP/Tdap/Td Vaccines (2 - Td or Tdap) 09/16/2033 09/16/2023 Pneumococcal Vaccine: 50+ Years Completed 12/23/2023, 09/16/2023 RSV Patients and Patients Aged 60 years or older Completed 09/28/2024 RSV under 20 months Aged Out 09/28/2024 No longe r eligible based on patient's age to complete this topic Influenza Vaccine Completed 07/14/2025, , 07/14/2023, Additional history exists HIB Vaccines Aged Out No longer eligi [...] patient's age to complete this topic Meningococcal B Vaccine Aged Out No l onger eligible based on patient's age to complete this topic Meningococcal Vaccine Aged Out No shanda terence eligible based on patient's age to complete this topic Rotavirus Vaccines Aged Out No longer eligible based on patient's age to complete this topic Procedures Procedure Name Priority Date/Time Associated Diagnosis Comments ORAL HYGIENE INSTRUCTIONS Routine 07/11/2025 8:00 AM EDT PROPHYLAXIS - ADULT Routine 07/11/2025 8 :00 AM EDT CASE PRESENTATION, DETAILED AND EXTENSIVE TREATMENT PLANNING Routine 07/11/2025 8:00 AM EDT PERIODIC ORAL EVALUATION - ESTABLISHED PATIENT Routine 07/11/2025 8:00 AM EDT Asymptomatic apical periodontitis Secondary dental caries associated with failed or defective dental yazidi XR KNEE 4+ VIEWS LEFT Routine 04/26/2025 8:56 AM EDT LIPID PANEL, STANDARD Routine 02/22/2025 9:04 AM EDT Hypertension, unspecified type INTRAORAL - COMPLETE SERIES OF RADIOGRAPHIC IMAGES Routine 09/18/2024 10:00 AM EST HM COLONOSCOPY Routine 12/15/2020 from Last 3 Months or Most Recently Relevant to Health Maintenance Results * XR Knee 4+ Views Left (04/26/2025 8:56 AM EDT) Anatomical Region Laterality Modality Lower Extremities, Knee Left [facility] 04/26/2025 8:56 AM EDT Narrative 04/26/2025 9:57 AM EDT [address] [address] XRay Report Signed Patient: Noe Amaya MR#: [id number] 164 : 1955 Acct:[id number] Age/Sex: 69 / M ADM Date: 04/26/25 Loc: .HHCX Attending Dr: Ellie Ford MD Ordering Physician: Ellie Ford MD Date of Service: 04/26/25 Procedure(s): XR knee LT 4V Accession Number(s): [id number] cc: Ellie Ford MD; Mima Rock MD EXAMINATION: XR KNEE, LEFT CLINICAL INFORMATION: left knee pain after trauma COMPARISON: None available. TECHNIQUE: Four views of the left knee. FINDINGS: There is mild narrowing of the medial joint space without narrowing of the lateral joint space. Lateral intercondylar tubercle is peaked. There is no joint effusion. There is moderate calcification in the femoral and popliteal and lower leg arteries. There is chronic fragmentation of tibial tubercle. XR/XR knee LT 4V IMPRESSION: Mild nonspecific medial joint space narrowing. Electronically signed by: Gera Hernadez MD 04/26/2025 09:54 AM EDT RP Dictated By: Gera Hernadez MD Signed By: <Electronically signed by Gera Hernadez MD in OV> 04/26/25 0954 DD/ 0856 TD/TT: 04/26/25 0946 Animal Trapper: Procedure Note Donotuseinterpreter, Image - 04/26/[address] [address] XRay Report Signed Patient: Noe Amaya [facility]#: [id number] 164 : 1955cct:[id number] Age/Sex: 69 / MADM Date: 04/26/25 Loc: HO.HHCX Attending Dr: Ellie Ford MD Ordering Physician: Ellie Ford MD Date of Service: 04/26/25 Procedure(s): XR knee LT 4V Accession Number(s): [id number] cc: Ellie Ford MD; Mima Rock MD EXAMINATION: XR KNEE, LEFT CLINICAL INFORMATION: left knee pain after trauma COMPARISON: None available. TECHNIQUE: Four views of the left knee. FINDINGS: There is mild narrowing of the medial joint space without narrowing of the lateral joint space. Lateral intercondylar tubercle is peaked. There is no joint effusion. There is moderate calcification in the femoral and popliteal and lower leg arteries. There is chronic fragmentation of tibial tubercle. XR/XR knee LT 4V IMPRESSION: Mild nonspecific medial joint space narrowing. Electronically signed by: Gera Hernadez MD 04/26/2025 09:54 AM EDT RP Dictated By: Gera Hernadez MD Signed By: <Electronically signed by Gera Hernadez MD in OV> 04/26/2554 DD/ TD/TT: 04/26/25945 Animal Trapper: us Ellie Ford MD IMG XR PROCEDURES Final Res ult * (ABNORMAL) Lipid Panel, Standard (02/22/2025 9:04 AM EDT) Triglycerides 137 <150 mg/dL [facility] Comment:Desirable Triglyceri de: less than 150 mg/dLBorderline High Triglyceride 150-199 mg/dLHigh Triglyceride: 200-499 mg/dLVery High Triglyceride: greater than or equal to 5OO mg/dL Cholesterol 155 <200 mg/dL [facility] Comment:Desirable Cholestero l: less than 200 mg/dLBorderline High Cholesterol: 200-239 mg/dLHigh Cholesterol: greater than 239 mg/dL LDL Cholesterol Calculated 89 <100 mg/dL [facility] Comment:Desirable LDL: less than 100 mg/dLNear Optimal/Above Optimal LDL: 110- 129 mg/dLBorderline High LDL: 130-159 mg/dLHigh LDL: 160-189 mg/dLVery High LDL: greater than or equal to 190 mg/dL HDL Cholesterol 39(L) >40 mg/dL [facility] Comment:Desirable HDL: great er than 40 mg/dL Note: This HDL assay may give artificially low results in patients with liver disease. Blood Venous blood specimen / Unknown 02/22/2025 9:04 AM EDT 02/22/2025 10:39 AM EDT us Mima Rock MD LAB BLOOD ORDERABLES Final Resul t [facility] [address] [place] [address] [phone] * Colonoscopy (12/15/2020) Colonoscopy Normal Normal Narrative Cailin Last - 12/15/2020 Recommended 1-2 years . See See legacy note on 01/06/2021 Historical Provider HEALTH MAINTENANCE Final Result from Last 3 Months or Most Recently Relevant to Health Maintenance Insurance [facility] [employer] (HMO D-SNP) [facility] Care Teams Parachute Accessories Attacher Relationship Specialty Start Date End Date Mima Rock MD [address] [place] [phone] PCP - General Family Medicine 08/02/20
--- OUTSIDE RECORDS SUMMARY | 2025-07-25 18:52 | XMS_ITS | Encounter Summary ---
Author Organization [employer] Address [address] [facility] 7t [place] [address] Care Team Providers Care Chronometer Assembler Name Role Phone Mima Rock MD Primary Care Provider [phone] Encounter Details Date Type Department Care Team (Late st Contact Info) Description 08/30/2022 Orders Only [facility] MEDICINE [address] [place] [id number] Norma Nevarez MD 230 [place] [address] Peripheral artery disease (CMS/HCC) (Primary Dx) Social [...] Description 07/30/2025 1:00 PM EST Office Visit [facility] ADULT DENTAL [address] [place] [address] Saray Harp DDS 230 [place] [address] documented as of this encounter Visit Diagnoses Diagnosis Peripheral artery disease- Primary documented in this encounter Care Teams Chronometer Assembler Relationship Specialty Start Date End Date Mima Rock MD [address] [place] [address] PCP - General Family Medicine 08/02/20 documented as of this encounter
--- OUTSIDE RECORDS SUMMARY | 2025-07-25 18:52 | XMS_ITS | Encounter Summary ---
Author Organization [employer] Address 75 [facility] 7t [place] [address] Care Team Providers Care Can Line Operator Name Role Phone Mima Rock MD Primary Care Provider [phone] Encounter Details Date Type Department Care Team (Latest Contact Info) Description 05/18/2022 Abstract [facility] Dental, Provider, DDS Social History [...] Description 07/30/2025 1:00 PM EST Office Visit [facility] CHC ADULT DENTAL [address] [place] [address] Saray Harp DDS 230 [place] [address] documented as of this encounter Visit Diagnoses Not on filedocumented in this encounter Care Teams Can Line Operator Relationship Specialty Start Date End Date Mima Rock MD 230 [place] [address] PCP - General Family Medicine 08/02/20 documented as of this encounter
--- OUTSIDE RECORDS SUMMARY | 2025-07-25 18:52 | XMS_ITS | Encounter Summary ---
Author Organization [employer] Address 75 [facility] 7t [place] [address] Care Team Providers Care Grain Broker Name Role Phone Mima Rock MD Primary Care Provider [phone] Encounter Details Date Type Department Care Team (Late st Contact Info) Description 08/31/2022 Orders Only [facility] [address] [place] [address] Mima Rock MD 505 [place], [place] [phone] Claudication of both lower extremities (CMS/HCC) (Primary [...] Description 07/30/2025 1:00 PM EST Office Visit [facility] CH[facility] ADULT DENTAL 505 [place] [address] Saray Harp DDS 230 [place] [address] documented as of this encounter Visit Diagnoses Diagnosis Claudication of both lower extremities- Primary documented in this encounter Care Teams Grain Broker Relationship Specialty Start Date End Date Mima Rock MD 230 [place] [address] PCP - General Family Medicine 08/02/20 documented as of this encounter
--- OUTSIDE RECORDS SUMMARY | 2025-07-25 18:53 | XMS_ITS | Encounter Summary ---
Author Organization [employer] Address 75 [facility] 7t [place] [address] Care Team Providers Care Ventilation Mechanic Name Role Phone Mima Rock MD Primary Care Provider [phone] Reason for Visit * Reason Comments Med Refill Encounter Details Date Type Department Care Team ([facility] st Contact Info) Description 11/02/2023 Refill [facility] CHC MED & PEDS 505 [place], [place] [phone] Ellie Ford MD 505 [place] [address] Intertrigo Social History Tobacco Use Types Packs/Day [...] Description 07/30/2025 1:00 PM EST Office Visit [facility] CHC ADULT DENTAL [address] [place] [address] Saray Harp DDS 230 [place] [address] documented as of this encounter Visit Diagnoses Diagnosis Intertrigo Other specified erythematous condition documented in this encounter Care Teams Ventilation Mechanic Relationship Specialty Start Date End Date Mima Rock MD 230 [place] [address] PCP - General Family Medicine 08/02/20 documented as of this encounter
--- OUTSIDE RECORDS SUMMARY | 2025-07-25 18:53 | XMS_ITS | Encounter Summary ---
Author Organization [employer] Address [address] [facility] [address] 7t [place] [address] Care Team Providers Care Middle School Tutor Name Role Phone Mima Rock MD Primary Care Provider [phone] Reason for Visit * Reason Comments Med Refill Encounter Details Date Type Department Care Team ([facility] st Contact Info) Description 10/05/2024 Refill [facility] 230 [place] [address] Ilene Goins MD [address] [place], [place] [phone] Social History Tobacco Use Types Packs/Day Years [...] Description 07/30/2025 1:00 PM EST Office Visit [facility] CHC ADULT DENTAL [address] [place] [address] Saray Harp DDS 230 [place] [address] documented as of this encounter Visit Diagnoses Not on filedocumented in this encounter Care Teams Middle School Tutor Relationship Specialty Start Date End Date Mima Rock MD 230 [place] [address] PCP - General Family Medicine 08/02/20 documented as of this encounter
--- OUTSIDE RECORDS SUMMARY | 2025-07-25 18:53 | XMS_ITS | Encounter Summary ---
Author Organization [employer] Address 75 [facility] 7t [place] [address] Care Team Providers Care Wind Turbine Machinist Name Role Phone Mima oRck MD Primary Care Provider Reason for Visit * Reason Comments Med Refill Encounter Details Date Type Department Care Team ([facility] Contact Info) Description 03/24/2023 Refill [facility] MED & PEDS [address] [place] [address] Mima Rock MD 505 [place] [address] Chronic fatigue Social History Tobacco Use Types [...] Upcoming Encounters Date Type Department Care Team ([facility] Contact Info) Description 07/30/2025 1:00 PM EST Office Visit [facility] ADULT DENTAL 505 [place] [address] Saray Harp DDS 230 [place] [address] documented as of this encounter Visit Diagnoses Diagnosis Chronic fatigue Other malaise and fatigue documented in this encounter Care Teams Wind Turbine Machinist Relationship Specialty Start Date End Date Mima Rock MD 230 [place] [address] PCP - General Family Medicine 08/02/20 documented as of this encounter
--- OUTSIDE RECORDS SUMMARY | 2025-07-25 18:53 | XMS_ITS | Encounter Summary ---
Author Organization [employer] Address 75 [facility] 7t [place] [address] Care Team Providers Care Director Of Scientific Research Name Role Phone Mima Rock MD Primary Care Provider Reason for Visit * Reason Comments Med Refill Encounter Details Date Type Department Care Team ([facility] st Contact Info) Description 10/05/2024 Refill [facility] CHC MED & PEDS [address] [place], [place] [phone] Mima Rock MD 505 [place], [place] [phone] Social History Tobacco Use Types Packs/Day Years [...] Description 07/30/2025 1:00 PM EST Office Visit [facility] CHC ADULT DENTAL [address] [place] [address] Saray Harp DDS 230 [place] [address] documented as of this encounter Visit Diagnoses Not on filedocumented in this encounter Care Teams Director Of Scientific Research Relationship Specialty Start Date End Date Mima Rock MD [address] [place] [address] PCP - General Family Medicine 08/02/20 documented as of this encounter
--- OUTSIDE RECORDS SUMMARY | 2025-07-25 18:53 | XMS_ITS | Encounter Summary ---
Author Organization [employer] Address [address] [facility] 7t [place] [address] Care Team Providers Care Children Counselor Name Role Phone Mima Rock MD Primary Care Provider [phone] Reason for Visit * Reason Onset Date Comments Medication Question 01/28/2023 Encounter Details Date Type Department Care Team ([facility] st Contact Info) Description 01/28/[address] [facility] CHC MED & PEDS 505 [place], [place] [phone] Mima Rock MD 505 [place] [address] Medication Question Social History Tobacco Use Types [...] to be resent to a different pharmacy [id number] [place] - [address] [facility] documented in this encounter Plan of Treatment Upcoming Encounters Date Type Department Care Team (Late st Contact Info) Description 07/30/2025 1:00 PM EST Office Visit [facility] ADULT DENTAL [address] [place] [address] Saray Harp DDS 230 [place] [address] documented as of this encounter Visit Diagnoses Diagnosis Intertrigo Other specified erythematous condition documented in this encounter Care Teams Children Counselor Relationship Specialty Start Date End Date Mima Rock MD 230 [place] [address] PCP - General Family Medicine 08/02/20 documented as of this encounter
--- OUTSIDE RECORDS SUMMARY | 2025-07-25 18:53 | XMS_ITS | Encounter Summary ---
Author Organization [employer] Address 75 [facility] 7t [place] [address] Care Team Providers Care Candle Wicker Name Role Phone Mima Rock MD Primary Care Provider [phone] Reason for Referral * Consultation (STAT) - Closed Specialty Diagnoses / Procedures Referred By Contac t Referred To Contact Urology Diagnoses Elevated PSA Mima Rock MD 505 [place] [address] Phone: tel: fax: [facility] [address] [place] [address] [place] [address] Phone: tel: fax: Referral ID Status Reason Start Date Expiration Date V isits Requested Visits Authorized [id number] Closed Specialty Services Required 02/26/2025 02/26/2026 1 1 Encounter Details Date Type Department Care Team (Late st Contact Info) Description 02/26/2025 Orders Only [facility] CHC MED & PEDS 505 [place], [place] [phone] Mima Rock MD 505 [place] [address] Elevated PSA (Primary Dx) Social History Tobacco Use Types [...] Description 07/30/2025 1:00 PM EST Office Visit [facility] ADULT DENTAL 505 [place] [address] Saray Harp DDS 230 [place] [address] Scheduled Referrals Name Type Priority Associated Diagnoses Orde r Schedule Referral to Urology Outpatient Referral STAT Elevated PSA Expected: 02/26/2025 (Approximate), Expires: 02/26/2026 documented as of this encounter Visit Diagnoses Diagnosis Elevated PSA- Primary Elevated prostate specific antigen (PSA) documented in this encounter Additional Health Concerns Assessment Noted Time PHQ-9 Depression Total Score: 3 02/23/20 25 8:45 AM EDT documented as of this encounter Care Teams Candle Wicker Relationship Specialty Start Date End Date Mima Rock MD [address] [place] [address] PCP - General Family Medicine 08/02/20 documented as of this encounter
--- OUTSIDE RECORDS SUMMARY | 2025-07-25 18:53 | XMS_ITS | Encounter Summary ---
Author Organization [employer] Address 75 [facility] 7t [place] [address] Care Team Providers Care Party Plan Sales Unit Sales Leader Name Role Phone Mima Rock MD Primary Care Provider [phone] Reason for Visit * Reason Comments Med Change Request Encounter Details Date Type Department Care Team ([facility] st Contact Info) Description 10/04/2024 Refill [facility] 230 [place], [place] [phone] Humberto Mooney MD 230 [place], [place] [phone] Social History Tobacco Use Types Packs/Day Years [...] Description 07/30/2025 1:00 PM EST Office Visit [facility] CHC ADULT DENTAL [address] [place] [address] Saray Harp DDS 230 [place] [address] documented as of this encounter Visit Diagnoses Not on filedocumented in this encounter Care Teams Party Plan Sales Unit Sales Leader Relationship Specialty Start Date End Date Mima Rock MD [address] [place] [address] PCP - General Family Medicine 08/02/20 documented as of this encounter
--- OUTSIDE RECORDS SUMMARY | 2025-07-25 18:53 | XMS_ITS | Encounter Summary ---
Author Organization [employer] Address [address] [facility] 7t [place] [address] Care Team Providers Care Summer Clerk Name Role Phone Mima Rock MD Primary Care Provider [phone] Reason for Visit * Reason Onset Date Comments Medication Question 10/01/2023 Encounter Details Date Type Department Care Team ([facility] st Contact Info) Description 10/01/2023 Telephone [facility] CHC MED & PEDS 505 [place], [place] [phone] Mima Rock MD 505 [place] [address] Medication Question Social History Tobacco Use Types [...] past 12 months, has t he electric, [employer], oil or water company threatened to shut [...] 2:56 PM EST TC from Mitzi with [employer] requesting a call back in regards message from 10/01 11:39. To contact Mitzi at [phone] Rock * Telephone Encounter - [...] - 10/01/2023 11:29 AM EST Tc from [facility] requesting a call in regards to some [...] medications doing the same thing. Please contact [phone] documented in this encounter Plan of Treatment Upcoming Encounters Date Type Department Care Team (Late st Contact Info) Description 07/30/2025 1:00 PM EST Office Visit [facility] ADULT DENTAL [address] [place] [address] Saray Harp DDS 230 [place] [address] documented as of this encounter Visit Diagnoses Not on filedocumented in this encounter Care Teams Summer Clerk Relationship Specialty Start Date End Date Mima Rock MD 230 [place] [address] PCP - General Family Medicine 08/02/20 documented as of this encounter
--- OUTSIDE RECORDS SUMMARY | 2025-07-25 18:53 | XMS_ITS | Encounter Summary ---
Author Organization [employer] Address [address] [facility] 7t [place] [address] Care Team Providers Care Microcomputer Support Specialist Name Role Phone Mima Rock MD Primary Care Provider [phone] Reason for Visit * Reason Comments Med Refill Encounter Details Date Type Department Care Team ([facility] st Contact Info) Description 11/22/2023 Refill [facility] CHC MED & PEDS 505 [place], [place] [phone] Ellie Ford MD 505 [place] [address] Intertrigo Social History Tobacco Use Types Packs/Day [...] Description 07/30/2025 1:00 PM EST Office Visit [facility] CHC ADULT DENTAL [address] [place] [address] Saray Harp DDS 230 [place] [address] documented as of this encounter Visit Diagnoses Diagnosis Intertrigo Other specified erythematous condition documented in this encounter Care Teams Microcomputer Support Specialist Relationship Specialty Start Date End Date Mima Rock MD 230 [place] [address] PCP - General Family Medicine 08/02/20 documented as of this encounter
--- OUTSIDE RECORDS SUMMARY | 2025-07-25 18:53 | XMS_ITS | Encounter Summary ---
Author Organization [employer] Address 75 [facility] 7t [place] [address] Care Team Providers Care Mimeographer Name Role Phone Mima Rock MD Primary Care Provider [phone] Reason for Visit * Reason Onset Date Comments rs same day cancel cleaning appt 04/05/2025 Encounter Details Date Type Department Care Team (Late st Contact Info) Description 04/05/2025 Telephone [facility] CHC ADULT DENTAL [address] [place], [place] [phone] Polo Ford rs same day cancel cleaning appt Social History Tobacco Use Types Packs/Day Years [...] encounter Miscellaneous Notes * Telephone Encounter - Whitney Flowers - 04/05/2025 10:32 AM EDT Patient called in to rs cleaning appt same day cancel. Patient has been informed there is a waitingperiod prior to rs same day cancellation. Patient asked how long the waiting period is. Patient informed if he doesn't not get a call on or after 05/20 he can then call back for rescheduling and can be rescheduled pending available appts DR documented in this encounter Plan of Treatment Upcoming Encounters Date Type Department Care Team (Late st Contact Info) Description 07/30/2025 1:00 PM EST Office Visit [facility] ADULT DENTAL [address] [place] [address] Saray Harp DDS 230 [place] [address] documented as of this encounter Visit Diagnoses Not on filedocumented in this encounter Additional Health Concerns Assessment Noted Time PHQ-9 Depression Total Score: 3 02/23/20 25 8:45 AM EDT documented as of this encounter Care Teams Mimeographer Relationship Specialty Start Date End Date Mima Rock MD 230 [place] [address] PCP - General Family Medicine 08/02/20 documented as of this encounter
--- OUTSIDE RECORDS SUMMARY | 2025-07-25 18:53 | XMS_ITS | Encounter Summary ---
Author Organization [employer] Address 75 [facility] 7t [place] [address] Care Team Providers Care K [employer] School Principal Name Role Phone Mima Rock MD Primary Care Provider [phone] Reason for Visit * Reason Onset Date Comments Medication Question 10/01/2023 Encounter Details Date Type Department Care Team ([facility] st Contact Info) Description 10/01/2023 Telephone [facility] CHC MED & PEDS 505 [place], [place] [phone] Mima Rock MD 505 [place] [address] Medication Question Social History Tobacco Use Types [...] Miscellaneous Notes * Telephone Encounter - Carlos Manuel Yeison - 10/01/2023 10:52 AM EST Tc from [facility] requesting medication for pt. Metoprolol 25 mg, Atorvastatin, and Penicillin0.4 mg. Reading Intervention Teacher unable to confirm Penicillin if any questions please contact pharmacy at [phone]. documented in this encounter Plan of Treatment Upcoming Encounters Date Type Department Care Team (Late st Contact Info) Description 07/30/2025 1:00 PM EST Office Visit [facility] ADULT DENTAL [address] [place] [address] Saray Harp DDS 230 [place] [address] documented as of this encounter Visit Diagnoses Not on filedocumented in this encounter Care Teams K [employer] School Principal Relationship Specialty Start Date End Date Mima Rokc MD 230 [place] [address] PCP - General Family Medicine 08/02/20 documented as of this encounter
--- OUTSIDE RECORDS SUMMARY | 2025-07-25 18:53 | XMS_ITS | Encounter Summary ---
Author Organization [employer] Address [address] [facility] 7t [place] [address] Care Team Providers Care Motor Vehicle Representative Name Role Phone Mima Rock MD Primary Care Provider [phone] Reason for Visit * Reason Onset Date Comments Appointment Request 09/01/2023 Encounter Details Date Type Department Care Team ([facility] Contact Info) Description 09/01/2023 Telephone [facility] CHC MED & PEDS 505 [place] [address] Mima Rock MD 505 [place] [address] Appointment Request Social History Tobacco Use Types [...] in groin area. Please contact pt at [phone] documented in this encounter Plan of Treatment Upcoming Encounters Date Type Department Care Team (Late st Contact Info) Description 07/30/2025 1:00 PM EST Office Visit [facility] ADULT DENTAL [address] [place] [address] Saray Harp DDS 230 [place] [address] documented as of this encounter Visit Diagnoses Not on filedocumented in this encounter Care Teams Motor Vehicle Representative Relationship Specialty Start Date End Date Mima Rock MD 230 [place] [address] PCP - General Family Medicine 08/02/20 documented as of this encounter
== END 2025-07-25 15:13 | disposition home or self-care (01) ==
LOC: HO.HOS 14:32
PROVIDERS: PCP Student in an Organized Health Care Education/Training Program; Visit Provider Physician Assistant
DX: M12.811 Other specific arthropathies, not elsewhere classified, right shoulder (principal)
CPT/HCPCS: 20610; 99213

== ENCOUNTER → 2025-07-25 14:31 | Outpatient (BNVA) | payer OTHER, SELFPAY | PROVIDERS: PCP Student in an Organized Health Care Education/Training Program; Visit Provider Physician Assistant | DX: M12.811 Other specific arthropathies, not elsewhere classified, right shoulder (principal) | CPT/HCPCS: 20610; 99212; J0665; J1100; J2003 ==